=== PATIENT | female | born 1950 | race Caucasian/White ===

== ENCOUNTER 2023-10-02 12:58 | Emergency (ER) | payer MEDICARE ==
[2023-10-02] MEDS ORDERED: diltiaZEM INJ 5 MG/ML VIAL IVP STA ×2 (13:26→14:45)
--- NOTE | 2023-10-02 13:26 | ED Physician Documentation ---
PD HPI DYSPNEA - Stated complaint Stated Complaint: SOA - Chief complaint Chief Complaint: Cardiac - History obtained from History obtained from: Patient - History of Present Illness Timing - onset: How many weeks ago (3) Timing - onset during: Light activity Timing - duration: Weeks (3) Timing - details: Gradual onset, Still present Inciting event(s): Other (started about 3 wks ago) Improved by: Rest, Sitting up Worsened by: Exertion, Laying flat Associated symptoms: No: Fever, Cough, Hemoptysis, Wheezing, Chest pain / discomfort, Palpitations, Diaphoresis, Bilateral edema, Unilateral edema Similar symptoms before: Has not had sx before Recently seen: Not recently seen - Additional information Additional information: 72-year-old Katrina Solitario has been experiencing shortness of breath with exertion for the past 3 weeks. She is begin to experience shortness of breath when she is laying flat. She is coming to the emergency department today with 3 weeks of symptoms. She does not feel that she is otherwise ill. She does not have a cough. Review of Systems Constitutional: denies: Fever Ears: denies: Ear pain Nose: denies: Congestion Throat: denies: Sore throat Cardiac: denies: Chest pain / pressure, Palpitations Respiratory: reports: Dyspnea. denies: Cough, Wheezing GI: denies: Abdominal Pain, Nausea, Vomiting, Constipation, Diarrhea : denies: Dysuria, Frequency PD PAST MEDICAL HISTORY - Past Medical History Past Medical History: No Cardiovascular: None Respiratory: None Neuro: None Endocrine/Autoimmune: None GI: None CLOD PULLER: None : None HEENT: None Psych: None Musculoskeletal: Osteoporosis Derm: None - Past Surgical History Past Surgical History: Yes Ortho: Hip replacement /CLOD PULLER: Hysterectomy - Present Medications Home Medications: Ambulatory Orders Medication Instructions Recorded Confirmed Metoprolol Tartrate [Lopressor] 25 mg PO BID #40 tablet 10/02/23 Rivaroxaban [Xarelto] 20 mg PO DAILY PM #20 tablet 10/02/23 - Allergies Allergies/Adverse Reactions: Allergies Allergy/AdvReac Type Severity Reaction Status Date / Time No Known Drug Allergies Allergy Verified 10/02/23 13:04 - Social History Does the pt smoke?: Yes Smoking Status: Former smoker Does the pt drink ETOH?: No Does the pt have substance abuse?: No - Immunizations Immunizations are current?: No PD ED PE NORMAL - Vitals Vital signs reviewed: Yes (Tachycardic and hypertensive marked for both) - General General: Alert and oriented X 3, No acute distress, Well developed/nourished - HEENT HEENT: Atraumatic, PERRL, EOMI - Neck Neck: Supple, no meningeal sign, No bony TTP - Cardiac Cardiac: Other (Tach tachycardic to 140 irregularly irregular) - Respiratory Respiratory: No respiratory distress, Clear bilaterally - Abdomen Abdomen: Soft, Non tender - Back Back: No CVA TTP, No spinal TTP - Derm Derm: Normal color, No rash - Extremities Extremities: No deformity, No edema - Neuro Neuro: Alert and oriented X 3, web portal developer 2-12 intact, No motor deficit, No sensory deficit, Normal speech Eye Opening: Spontaneous Motor: Obeys Commands Verbal: Oriented GCS Score: 15 - Psych Psych: Normal mood, Normal affect Results - Vitals Vitals: Vital Signs - 24 hr 10/02/23 10/02/23 10/02/23 13:05 13:43 14:00 Temperature 36.5 C Heart Rate 160 H 84 77 Respiratory 16 16 19 Rate Blood Pressure 150/100 H 112/99 H 115/84 H O2 Saturation 98 92 95 10/02/23 10/02/23 10/02/23 14:15 14:30 14:50 Temperature Heart Rate 76 79 78 Respiratory 17 17 17 Rate Blood Pressure 115/73 109/87 H 114/77 O2 Saturation 94 93 95 Oxygen O2 Source Room air - EKG (time done) 1311 EKG releavant findings:: EKG personally interpreted by author of this note. Relevant findings are: Rate: Rate (enter#) (141) Intervals: Prolonged QT Compare to prior EKG: Old EKG unavailable Computer interpretation: Agree with computer - Labs Labs: Laboratory Tests 10/02/23 10/02/23 10/02/23 13:10 13:26 13:26 WBC 7.9 RBC 4.84 Hgb 14.3 Hct 44.3 MCV 91.5 MCH 29.5 MCHC 32.3 RDW 15.2 H Plt Count 188 MPV 11.9 H Neut # (Auto) 5.5 Lymph # (Auto) 1.5 [place] # (Auto) 0.7 Eos # (Auto) 0.1 Baso # (Auto) 0.0 Absolute Nucleated RBC 0.00 Nucleated RBC % 0.0 Sodium 138 Potassium 4.2 Chloride 104 Carbon Dioxide 27 Anion Gap 7.0 BUN 28 H Creatinine 0.9 Estimated GFR (MDRD) 62 L Glucose 167 H Calcium 9.5 Total Bilirubin 1.0 AST 23 ALT 26 Alkaline Phosphatase 63 Troponin I High Sens 13.6 B-Natriuretic Peptide 412 H Total Protein 7.4 Albumin 4.5 Globulin 2.9 Albumin/Globulin Ratio 1.6 Lipase 17 - Rads (name of study) chest Relevant Findings:: Prelim report reviewed (Impression: Minimally prominent interstitium could raise it represent edema or atypical infection. There is no drainable effusion. Mild cardiomegaly. Consider future imaging surveillance to assess for resolution.), EMP independent interpretation of test, See rad report PD Medical Decision Making - ED course Complexity details: reviewed results, re-evaluated patient, considered different ial, d/w patient Reviewed Lab Results: We reviewed a complete blood count showing a normal white blood cell count normal hemoglobin hematocrit and platelets chemistries showed normal electrolytes the BUN was elevated at 28 creatinine normal 0.9 glucose mildly elevated at 167 liver functions normal high-sensitivity troponin 13.6 normal and BNP mildly elevated at 412. I reviewed these laboratory results and correlation to the patient's clinical presentation. These results indicate the patient has some chest congestion related to left heart failure related to prolonged rapid rate. The patient did not develop elevated troponin after 3 weeks indicating that her heart has tolerated this. ED course: 72-year-old female with new onset atrial fibrillation with rapid ventricular response has symptoms of dyspnea on exertion and orthopnea. She has evidence of mild congestive failure on chest x-ray and BNP and this appears to be rate related and despite this rate related congestive failure she does not have elevation of her troponin. We were able to treat the patient on arrival with intravenous diltiazem she was given a 20 mg dose which reduced her heart rate into the 70s and 80s. She was stable. The patient has been in atrial fibrillation for 3 weeks and she is still in atrial fibrillation we will place her on a blood thinner and have her follow-up with her primary and cardiology. Place her on a dose of metoprolol for rate control. Departure - Departure Disposition: 01 Home, Self Care Clinical Impression: Atrial fibrillation with rapid ventricular response Condition: Stable Instructions: ED Afib Follow-Up: Byron Fairbanks MD [Provider Admit Priv/Credential] - [facility] - Card [Provider Group] Prescriptions: Metoprolol Tartrate [Lopressor] 25 mg PO BID #40 tablet Rivaroxaban [Xarelto] 20 mg PO DAILY PM #20 tablet Comments: Katrina, today it looks like you have developed atrial fibrillation and you had not rapid ventricular response which you did not tolerate. The we have given you some diltiazem in the emergency department to slow your heart rate down and I am recommending you use metoprolol twice per day to control your heart rate. In addition I have prescribed a blood thinner to prevent stroke. I have prescribed Xarelto. Tonight we have given you a dose of a blood thinner and a dose of metoprolol. You will not need to take either of these medicines again until tomorrow. The medications have been e-scribed to the [facility] in [place]. A follow up with cardiology and with a primary care doctor is indicated. We have given you the name of a physician in [place] to follow up with and the number for [facility] cardiology.
[2023-10-02 13:36] LABS: BASOPHILS % (AUTO) 0.5 %; EOSINOPHILS # (AUTO) 0.1 10^3/uL (0.0-0.7); EOSINOPHILS % (AUTO) 1.1 %; HCT - HEMATOCRIT 44.3 % (37.0-47.0); HGB - HEMOGLOBIN 14.3 g/dL (12.0-16.0); LYMPHOCYTES # (AUTO) 1.5 10^3/uL (1.5-3.5); LYMPHOCYTES % (AUTO) 19.5 %; MEAN CORPUSCULAR HEMOGLOBIN 29.5 pg (27.0-31.0); MEAN CORPUSCULAR HGB CONC 32.3 g/dL (32.0-36.0); MEAN CORPUSCULAR VOLUME 91.5 fL (81.0-99.0); MEAN PLATELET VOLUME 11.9 fL (7.9-10.8); MONOCYTES # (AUTO) 0.7 10^3/uL (0.0-1.0); MONOCYTES % (AUTO) 8.8 %; NEUTROPHILS # (AUTO) 5.5 10^3/uL (1.5-6.6); NEUTROPHILS % (AUTO) 69.8 %; PLT - PLATELET COUNT 188 10^3/uL (130-450); RED BLOOD COUNT 4.84 10^6/uL (4.20-5.40); RED CELL DISTRIBUTION WIDTH 15.2 % (12.0-15.0); WHITE BLOOD COUNT 7.9 x10^3/uL (4.8-10.8)
[2023-10-02 13:51] LABS: ALBUMIN 4.5 g/dL (3.2-5.5); ALBUMIN/GLOBULIN RATIO 1.6 (1.0-2.2); CALCIUM 9.5 mg/dL (8.5-10.3); CREATININE 0.9 mg/dL (0.6-1.3); POTASSIUM 4.2 mmol/L (3.5-4.5); TOTAL PROTEIN 7.4 g/dL (6.4-8.9)
[2023-10-02 13:56] LABS: TROPONIN I HIGH SENSITIVITY 13.6 ng/L (2.3-14.8)
--- NOTE | 2023-10-02 13:56 | XRAY Report ---
PROCEDURE: Chest 1V INDICATIONS: Chest pain TECHNIQUE: One view of the chest was acquired. COMPARISON: None. FINDINGS: Surgical changes and devices: None. Lungs and pleura: Mild prominence of the interstitium. No dense consolidation or drainable pleural e ffusion. Mediastinum: Borderline heart size Bones and chest wall: Degenerative changes IMPRESSION: Mildly prominent interstitium could represent edema or atypical infection. There is no drainable effu gail. Mild cardiomegaly. Consider future imaging surveillance to assess for resolution. Reviewed by: Gonzalez Butcher MD on 10/02/2023 1:55 PM PST Approved by: Gonzalez Butcher MD on 10/02/2023 1:55 PM PST Station ID: [id number]
[2023-10-02 15:28] VITALS: BP 120/76; O2SAT 97
[2023-10-02] MEDS ORDERED: METOPROLOL TARTRATE 50 MG TABLET PO STA (15:31)
[2023-10-02] MEDS ORDERED: APIXABAN 5 MG TABLET PO STA (15:34)
== END 2023-10-02 15:49 | disposition home or self-care (01) ==
LOC: ED 12:58
DX: I48.91 Unspecified atrial fibrillation (principal); Z79.01 Long term (current) use of anticoagulants; Z87.891 Personal history of nicotine dependence
CPT/HCPCS: 36415; 71045; 80053; 83690; 83880; 84484; 85025; 93005; 96374; 99283; 99284; A9270

== ENCOUNTER 2023-11-08 13:08 | Outpatient (CLI) | payer MEDICARE | END 2023-11-08 13:09 | disposition critical access hospital (66) | LOC: EMS 13:08 | DX: R06.09 Other forms of dyspnea (principal); I48.91 Unspecified atrial fibrillation | CPT/HCPCS: A0425; A0429 ==

== ENCOUNTER 2023-11-08 13:20 | Emergency (ER) | payer MEDICARE ==
--- NOTE | 2023-11-08 13:40 | ED Physician Documentation ---
History of Present Illness - Stated complaint Stated Complaint: AFIB - Chief complaint Chief Complaint: Cardiac - History obtained from History obtained from: Patient, EMS - History of Present Illness Timing: How many weeks ago (5) Pain level max: 0 Pain level now: 0 - Additonal information Additional information: 72-year-old female was diagnosed about 5 weeks ago with atrial fibrillation with rapid ventricular response. She was started on metoprolol and Xarelto. She did not fill the Xarelto secondary to cost. She states she has been on the metoprolol and has an appoint with a new primary care provider next week. She has been taking baby aspirin twice daily. No chest pain. She states that she still feels like she gets out of breath when she walks. She states that her heart rate at home has been between 120 and 150. No fevers. No cough. No congestion. No nausea or vomiting. No diarrhea. Review of Systems Constitutional: denies: Fever, Chills Respiratory: denies: Cough GI: denies: Nausea, Vomiting, Diarrhea Skin: denies: Rash Musculoskeletal: denies: Neck pain, Back pain Neurologic: denies: Headache PD PAST MEDICAL HISTORY - Past Medical History Cardiovascular: None Respiratory: None Neuro: None Endocrine/Autoimmune: None GI: None BIOMEDICAL SERVICE ENGINEER: None : None HEENT: None Psych: None Musculoskeletal: Osteoporosis Derm: None - Past Surgical History Past Surgical History: Yes Ortho: Hip replacement /BIOMEDICAL SERVICE ENGINEER: Hysterectomy - Present Medications Home Medications: Ambulatory Orders Medication Instructions Recorded Confirmed Metoprolol Tartrate [Lopressor] 25 mg PO BID #40 tablet 10/02/23 11/08/23 Furosemide [Lasix] 20 mg PO DAILY #14 tablet 11/08/23 diltiaZEM CD [Cardizem Cd] 120 mg PO DAILY #30 cap 11/08/23 - Allergies Allergies/Adverse Reactions: Allergies Allergy/AdvReac Type Severity Reaction Status Date / Time No Known Drug Allergies Allergy Verified 10/02/23 13:04 - Social History Does the pt smoke?: Yes Smoking Status: Current every day smoker Does the pt drink ETOH?: No Does the pt have substance abuse?: No - Immunizations Immunizations are current?: No PD ED PE NORMAL - Vitals Vital signs reviewed: Yes - General General: Alert and oriented X 3, No acute distress - HEENT HEENT: PERRL, Moist mucous membranes - Neck Neck: Supple, no meningeal sign - Cardiac Cardiac: Other (Irregular, tachycardic) - Respiratory Respiratory: No respiratory distress, Clear bilaterally - Abdomen Abdomen: Soft, Non tender, Non distended - Derm Derm: Warm and dry - Extremities Extremities: No calf tenderness / cord, Other (1+ bilateral lower extremity edema) - Neuro Neuro: Alert and oriented X 3 - Psych Psych: Normal mood, Normal affect Results - Vitals Vitals: Vital Signs - 24 hr 11/08/23 11/08/23 11/08/23 13:28 13:30 14:00 Temperature 36.6 C Heart Rate 145 H 139 H 93 Respiratory 26 H 22 Rate Blood Pressure 120/91 H 109/87 H 93/73 O2 Saturation 99 97 93 11/08/23 11/08/23 11/08/23 14:20 15:00 15:30 Temperature Heart Rate 88 88 86 Respiratory 22 18 18 Rate Blood Pressure 92/75 114/90 H 117/86 H O2 Saturation 95 95 95 11/08/23 11/08/23 16:00 16:32 Temperature Heart Rate 96 99 Respiratory 18 22 Rate Blood Pressure 101/74 101/74 O2 Saturation 100 98 Oxygen O2 Source Room air - EKG (time done) 1329 EKG releavant findings:: EKG personally interpreted by author of this note. Relevant findings are: Rate: Rate (enter#) (127) Rhythm: Atrial fibrillation (RVR) [place]: Normal QRS: Normal Ischemia: Non specific changes - Labs Labs: Laboratory Tests 11/08/23 11/08/23 11/08/23 13:45 13:45 13:45 WBC 12.5 H RBC 4.71 Hgb 14.1 Hct 43.9 MCV 93.2 MCH 29.9 MCHC 32.1 RDW 15.5 H Plt Count 238 MPV 12.0 H Neut # (Auto) 9.5 H Lymph # (Auto) 1.7 [place] # (Auto) 1.1 H Eos # (Auto) 0.0 Baso # (Auto) 0.1 Absolute Nucleated RBC 0.00 Nucleated RBC % 0.0 Sodium 137 Potassium 4.8 H Chloride 104 Carbon Dioxide 26 Anion Gap 7.0 BUN 51 H Creatinine 1.2 Estimated GFR (MDRD) 44 L Glucose 239 H Calcium 9.2 Total Bilirubin 1.4 H AST 37 ALT 39 Alkaline Phosphatase 62 Troponin I High Sens 18.5 H* B-Natriuretic Peptide 760 H Total Protein 6.0 L Albumin 3.8 Globulin 2.2 Albumin/Globulin Ratio 1.7 Lipase 23 - Rads (name of study) cxr Relevant Findings:: Final report received, See rad report PD Medical Decision Making - ED course Complexity details: reviewed results, re-evaluated patient, considered differential, d/w patient ED course: 72-year-old female presents with atrial fibrillation with rapid ventricular response. She was diagnosed about a month ago. She has not taken her anticoagulant medication secondary to cost and does not want to be started on 1. She states she just wants to take aspirin. Understands the stroke risk. She does appear to have an elevated BNP compared with prior, cardiomegaly and pulmonary edema that is mild. No hypoxia or respiratory distress. Attempted to obtain an echocardiogram, but the pv installer tech is not available until tomorrow. Her rate is well-controlled with diltiazem and she seems to respond much better to diltiazem than metoprolol, therefore we will change this at home. Will also start her on Lasix. We will have her follow-up closely with her PCP this week as scheduled. Patient also has a cardiology appointment scheduled. Patient is rate controlled. Patient otherwise asymptomatic here. No other significant lab abnormalities. Patient counseled regarding signs and symptoms for which I believe and urgent re-evaluation would be necessary. Patient with good understanding of and agreement to plan and is comfortable going home at this time This document was made in part using voice recognition software. While efforts are made to proofread this document, sound alike and grammatical errors may occur. Departure - Departure Disposition: 01 Home, Self Care Clinical Impression: Atrial fibrillation with rapid ventricular response Congestive heart failure Qualifiers: Heart failure type: unspecified Heart failure chronicity: unspecified Qualified Code(s): I50.9 - Heart failure, unspecified Condition: Good Instructions: ED Afib, ED CHF General Follow-Up: SAM DIAZ PA [Physician No Access] - Within 1 week Prescriptions: diltiaZEM CD [Cardizem Cd] 120 mg PO DAILY #30 cap Furosemide [Lasix] 20 mg PO DAILY #14 tablet Comments: Your prescriptions were sent to [facility] in [place]. We will have you stop th e metoprolol and switch you to Cardizem as you seem to respond better to that. You also appear to likely have some congestive heart failure and mild fluid building up in your lungs. The Lasix will usually help with this. It is importantly your doctor order a cardiac echocardiogram for you. I did try to order one today, but the pv installer tech is not here on Mondays. Please return if you worsen. Forms: PCP List Discharge Date/Time: 11/08/23 16:25
[2023-11-08] MEDS: diltiaZEM INJ 5 MG/ML VIAL IVP STA (13:46)
[2023-11-08 13:49] LABS: BASOPHILS # (AUTO) 0.1 10^3/uL (0.0-0.1); BASOPHILS % (AUTO) 0.5 %; EOSINOPHILS % (AUTO) 0.2 %; HCT - HEMATOCRIT 43.9 % (37.0-47.0); HGB - HEMOGLOBIN 14.1 g/dL (12.0-16.0); LYMPHOCYTES # (AUTO) 1.7 10^3/uL (1.5-3.5); LYMPHOCYTES % (AUTO) 13.3 %; MEAN CORPUSCULAR HEMOGLOBIN 29.9 pg (27.0-31.0); MEAN CORPUSCULAR HGB CONC 32.1 g/dL (32.0-36.0); MEAN CORPUSCULAR VOLUME 93.2 fL (81.0-99.0); MONOCYTES # (AUTO) 1.1 10^3/uL (0.0-1.0); MONOCYTES % (AUTO) 9.1 %; NEUTROPHILS # (AUTO) 9.5 10^3/uL (1.5-6.6); NEUTROPHILS % (AUTO) 76.6 %; PLT - PLATELET COUNT 238 10^3/uL (130-450); RED BLOOD COUNT 4.71 10^6/uL (4.20-5.40); RED CELL DISTRIBUTION WIDTH 15.5 % (12.0-15.0); WHITE BLOOD COUNT 12.5 x10^3/uL (4.8-10.8)
[2023-11-08 14:20] LABS: ALBUMIN 3.8 g/dL (3.2-5.5); ALBUMIN/GLOBULIN RATIO 1.7 (1.0-2.2); BILIRUBIN,TOTAL 1.4 mg/dL (0.2-1.0); CALCIUM 9.2 mg/dL (8.5-10.3); CREATININE 1.2 mg/dL (0.6-1.3); POTASSIUM 4.8 mmol/L (3.5-4.5); TROPONIN I HIGH SENSITIVITY 18.5 ng/L (2.3-14.8)
[2023-11-08] MEDS: FUROSEMIDE 20 MG/2 ML VIAL IVP STA (14:41)
--- NOTE | 2023-11-08 15:35 | XRAY Report ---
PROCEDURE: Chest 1V INDICATIONS: palpitations TECHNIQUE: One view of the chest was acquired. COMPARISON: Chest x-ray 10/02/2023. FINDINGS: Surgical changes and devices: None. Lungs and pleura: No pleural effusions or pneumothorax. Lungs are clear. Mediastinum: Mediastinal contours appear normal. Heart size is enlarged. Bones and chest wall: No suspicious bony lesions. Overlying soft tissues appear unremarkable. IMPRESSION: Cardiomegaly with prominent interstitial markings, may represent fluid overload. Reviewed by: Thomas Sprague MD on 11/08/2023 3:34 PM PST Approved by: Thomas Sprague MD on 11/08/2023 3:34 PM PST Station ID: [id number]
[2023-11-08] MEDS: diltiaZEM INJ 125 MG in DEXTROSE 5% 100 ML IV STA (16:14)
[2023-11-08 16:35] VITALS: BP 101/74
[2023-11-08 16:45] VITALS: O2SAT 98
== END 2023-11-08 16:25 | disposition home or self-care (01) ==
LOC: ED 13:20
DX: R06.09 Other forms of dyspnea (principal); I48.91 Unspecified atrial fibrillation; I50.9 Heart failure, unspecified; T45.516A Underdosing of anticoagulants, initial encounter; Z91.138 Patient's unintentional underdosing of medication regimen for other reason; F17.200 Nicotine dependence, unspecified, uncomplicated
CPT/HCPCS: 36415; 80053; 83690; 83880; 84484; 85025; 93005; 96374; 96375; 99283

== ENCOUNTER 2023-12-03 10:43 | Inpatient (IN) | payer MEDICARE ==
--- NOTE | 2023-12-03 11:14 | ED Physician Documentation ---
PD HPI DYSPNEA - Stated complaint Stated Complaint: HIGH HR,FEET SWELLING - Chief complaint Chief Complaint: Cardiac - History obtained from History obtained from: Patient - History of Present Illness Timing - onset: How many months ago (has noted some general edema and dyspnea for few months, with ED visits Sep and Nov for it, with D atrial fib/CHF. Rx with Warfarin, Lasix, Diltiazem. She states has not noted improvement with these. Still more edema generally. Does not have feeling of rapid heart rate currently.) Timing - details: Gradual onset, Waxing and waning (had a plateau degree of edema for few weeks, and then worse the past 1-2 weeks. Increased redness and swelling of both legs now.) Inciting event(s): No: URI, Immobilization/travel Improved by: Rest, Sitting up Worsened by: Exertion, Laying flat Associated symptoms: No: Fever, Cough, Wheezing Recently seen: Clinic (started on metoprolol but not improved. changed to diltiazem on ER visit month ago. Some improved for 1-2 weeks, then increased edema again though. much worse the past week.), Emergency Dept Review of Systems Constitutional: denies: Fever, Chills Nose: denies: Rhinorrhea / runny nose Throat: denies: Sore throat Cardiac: reports: Pedal edema. denies: Palpitations Respiratory: reports: Dyspnea, Wheezing. denies: Cough PD PAST MEDICAL HISTORY - Past Medical History Cardiovascular: Congestive heart failure, Atrial fibrillation Respiratory: None Neuro: None Endocrine/Autoimmune: None GI: None DIRECTOR DESIGN: None : None HEENT: None Psych: None Musculoskeletal: Osteoporosis Derm: None - Past Surgical History Past Surgical History: Yes Ortho: Hip replacement /DIRECTOR DESIGN: Hysterectomy - Present Medications Home Medications: Ambulatory Orders Medication Instructions Recorded Confirmed diltiaZEM CD [Cardizem Cd] 120 mg PO DAILY #30 cap 11/08/23 12/03/23 Furosemide [Lasix] 40 mg PO DAILY 12/03/23 12/03/23 - Allergies Allergies/Adverse Reactions: Allergies Allergy/AdvReac Type Severity Reaction Status Date / Time banana Allergy Mild Rash Verified 12/03/23 11:09 gluten Allergy Rash Verified 12/03/23 11:09 pineapple Allergy Rash Verified 12/03/23 11:09 - Social History Does the pt smoke?: No Smoking Status: Former smoker Does the pt drink ETOH?: No Does the pt have substance abuse?: No - Immunizations Immunizations are current?: No PD ED PE NORMAL - Vitals Vital signs reviewed: Yes - General General: Alert and oriented X 3, Well developed/nourished - HEENT HEENT: Pharynx benign - Neck Neck: Supple, no meningeal sign, No adenopathy - Cardiac Cardiac: No murmur. No: RRR - Respiratory Respiratory: No respiratory distress - Abdomen Abdomen: Soft, Non tender, Non distended - Derm Derm: Normal color, Warm and dry, Other (redness with some dry skin patches on upper chest to mid sternal area. Some red rash on cheeks and forehead.) - Extremities Extremities: Other (2-3+ edema in both lower legs, with uniform symettric redness with tenderness lower anterior shins. Dressings in place. ) - Neuro Neuro: Alert and oriented X 3, No motor deficit, No sensory deficit, Normal speech Results - Vitals Vitals: Vital Signs - 24 hr 12/03/23 12/03/23 12/03/23 10:49 11:55 13:00 Temperature 35.9 C L Heart Rate 167 H 146 H 108 H Respiratory 18 16 18 Rate Blood Pressure 152/113 H 116/87 H 104/69 O2 Saturation 95 95 97 12/03/23 12/03/23 14:36 15:00 Temperature Heart Rate 110 H 135 H Respiratory 16 16 Rate Blood Pressure 128/97 H 125/85 H O2 Saturation 95 96 Oxygen O2 Source Room air - EKG (time done) 10:59 EKG releavant findings:: EKG personally interpreted by author of this note. Relevant findings are: Rate: Rate (enter#) (161) Rhythm: Atrial fibrillation Ischemia: ST depression. No: ST elevation c/w ischemia Compare to prior EKG: Unchanged from prior EKG - Labs Labs: Laboratory Tests 12/03/23 12/03/23 12/03/23 11:30 11:30 11:30 WBC 9.7 RBC 4.68 Hgb 13.5 Hct 40.9 MCV 87.4 MCH 28.8 MCHC 33.0 RDW 14.6 Plt Count 330 MPV 10.9 H Neut # (Auto) 7.5 H Lymph # (Auto) 1.1 L Laurens # (Auto) 0.9 Eos # (Auto) 0.1 Baso # (Auto) 0.1 Absolute Nucleated RBC 0.00 Nucleated RBC % 0.0 PT INR Sodium 138 Potassium 3.4 L Chloride 98 L Carbon Dioxide 31 Anion Gap 9.0 BUN 26 H Creatinine 1.0 Estimated GFR (MDRD) 54 L Glucose 167 H Calcium 9.5 Phosphorus Magnesium 1.8 Total Bilirubin 1.2 H AST 31 ALT 25 Alkaline Phosphatase 78 Troponin I High Sens 14.7 B-Natriuretic Peptide Total Protein 6.6 Albumin 3.9 Globulin 2.7 Albumin/Globulin Ratio 1.4 Lipase 18 TSH 12/03/23 12/03/23 12/03/23 11:30 11:38 13:41 WBC RBC Hgb Hct MCV MCH MCHC RDW Plt Count MPV Neut # (Auto) Lymph # (Auto) Laurens # (Auto) Eos # (Auto) Baso # (Auto) Absolute Nucleated RBC Nucleated RBC % PT 14.0 H INR 1.3 H Sodium Potassium Chloride Carbon Dioxide Anion Gap BUN Creatinine Estimated GFR (MDRD) Glucose Calcium Phosphorus 3.5 Magnesium 1.7 Total Bilirubin AST ALT Alkaline Phosphatase Troponin I High Sens B-Natriuretic Peptide 349 H Total Protein Albumin Globulin Albumin/Globulin Ratio Lipase TSH 3.73 - Rads (name of study) chest xry Relevant Findings:: Prelim report reviewed, EMP independent interpretation of test (vascular congestion, CHF. No infiltrates) PD Medical Decision Making - ED course Complexity details: reviewed results (The chest x-ray does appear to have congestive heart failure findings. No signs of pneumonia. BNP is somewhat elevated at 349. No prior levels. Troponin is negative. Chemistry panel shows decreased potassium and magnesium and she was given supplements.), re-evaluated patient (The patient does have adequate oxygenation on room air. However heart rate still is running more over 100 after doses of diltiazem IV. She was given Bumex IV with minimal urine output so far. We can repeat the dosing.), considered differential (The patient has ongoing atrial fibrillation. She does not feel her heart rate going fast so hard to tell rate control per se. She has been having progressive edema in the legs and dyspnea. This had started prior to switching to oral diltiazem though could be enhanced from it. Previous metoprolol), d/w patient ED course: The patient was on metoprolol but did not like it in the sense of having fatigue. Unclear whether was the medicine itself. She was switched however to a diltiazem and seem to be doing a little better with that as well as furosemide outpatient. However she continued to have increasing edema over the last week or 2 in the legs and has noticed orthopnea and dyspnea on exertion. No chest pain per se. Her leg swelling is such that she is now having Harlan redness on the anterior aspects of both legs from the edema. She has been limited in basic house activities due to the dyspnea. Unclear what her heart rate has been at home as she does not measure it and is not able to feel it going fast. This point I believe she is a has need for better rate control and to assess that more carefully. Also better diuresis. Consideration would be the edema in the legs related to the calcium emory and whether she would do better switching back to a beta-emory. Defer to the hospitalist on this. I did try a different diuretic. She has redness and itchy rash on her chest and face over the last week. This could be an allergic reaction. Her new medicines are the diltiazem and furosemide. I be more inclined to think furosemide as a source and therefore used bumetanide as a diuretic here. She has had minimal urge for urine output as yet. I will repeat the dose. She is not hypoxic but does have poor rate control atrial fibrillation along with progressive edema despite outpatient diuretics and progressive dyspnea. I feel she would be better treated in the hospital with IV medications and to optimize dosing for rate control. I talked with the hospitalist who was in agreement and will come to the ER to see the patient. Departure - Departure Disposition: ED Place in Observation Clinical Impression: Atrial fibrillation with rapid ventricular response, Congestive heart failure, Dyspnea, Edema, Allergic reaction Condition: Stable Record reviewed to determine appropriate education?: Yes Discharge Date/Time: 12/03/23 16:51
[2023-12-03 11:42] LABS: BASOPHILS # (AUTO) 0.1 10^3/uL (0.0-0.1); BASOPHILS % (AUTO) 0.5 %; EOSINOPHILS # (AUTO) 0.1 10^3/uL (0.0-0.7); EOSINOPHILS % (AUTO) 1.1 %; HCT - HEMATOCRIT 40.9 % (37.0-47.0); HGB - HEMOGLOBIN 13.5 g/dL (12.0-16.0); LYMPHOCYTES # (AUTO) 1.1 10^3/uL (1.5-3.5); LYMPHOCYTES % (AUTO) 11.1 %; MEAN CORPUSCULAR HEMOGLOBIN 28.8 pg (27.0-31.0); MEAN CORPUSCULAR VOLUME 87.4 fL (81.0-99.0); MEAN PLATELET VOLUME 10.9 fL (7.9-10.8); MONOCYTES # (AUTO) 0.9 10^3/uL (0.0-1.0); MONOCYTES % (AUTO) 8.8 %; NEUTROPHILS # (AUTO) 7.5 10^3/uL (1.5-6.6); NEUTROPHILS % (AUTO) 77.8 %; PLT - PLATELET COUNT 330 10^3/uL (130-450); RED BLOOD COUNT 4.68 10^6/uL (4.20-5.40); RED CELL DISTRIBUTION WIDTH 14.6 % (12.0-15.0); WHITE BLOOD COUNT 9.7 x10^3/uL (4.8-10.8)
--- NOTE | 2023-12-03 11:50 | XRAY Report ---
PROCEDURE: Chest 1V INDICATIONS: Chest pain TECHNIQUE: One view of the chest was acquired. COMPARISON: 11/08/2023. FINDINGS: Surgical changes and devices: None. Lungs and pleura: Pulmonary edema, bilateral pleural effusions, bibasilar atelectasis. Mediastinum: Mediastinal contours appear normal. Cardiomegaly. Bones and chest wall: No suspicious bony lesions. Overlying soft tissues appear unremarkable. IMPRESSION: Congestive heart failure exacerbation. Reviewed by: Trent Rodgers MD on 12/03/2023 11:48 AM PST Approved by: Trent Rodgers MD on 12/03/2023 11:48 AM PST Station ID: [id number]
[2023-12-03 11:55] LABS: ALBUMIN 3.9 g/dL (3.2-5.5); ALBUMIN/GLOBULIN RATIO 1.4 (1.0-2.2); BILIRUBIN,TOTAL 1.2 mg/dL (0.2-1.0); CALCIUM 9.5 mg/dL (8.5-10.3); POTASSIUM 3.4 mmol/L (3.5-4.5); TOTAL PROTEIN 6.6 g/dL (6.4-8.9)
[2023-12-03 12:03] LABS: TROPONIN I HIGH SENSITIVITY 14.7 ng/L (2.3-14.8)
[2023-12-03] MEDS: POTASSIUM BICARB 25 MEQ TABLET PO STA (12:30)
[2023-12-03] MEDS: diltiaZEM INJ 5 MG/ML VIAL IVP STA ×2 (12:32→13:41)
[2023-12-03] MEDS: BUMETANIDE 1 MG/4 ML VIAL IVP STA ×2 (12:34→14:29)
[2023-12-03] MEDS: MAGNESIUM SULFATE 2 GRAM 2 GM/50 ML BAG IV ONE (12:41)
[2023-12-03 13:52] LABS: INR 1.3 (0.8-1.2)
--- NOTE | 2023-12-03 15:23 | HISTORY & PHYSICAL EXAMINATION ---
Chief Complaint - Chief Complaint Chief Complaint: edema and rash History of Present Illness - Admitted From Admitted From:: home - ED - History Obtained From Records Reviewed: records in [facility] - yes History obtained from: patient and records Exam Limitations: none - History of Present Illness HPI Comment/Other: The patient is a 73-year-old female with h/o episodes of afib with RVR on PO diltiazem who presented to the ED for edema, worst in BLE. She was seen in the ED 10/02 for THOMPSON x 3 wks and noted to be in afib RVR. She was given metoprolol with improvement and sent home with PO metoprolol and Xarelto (which she did not fill due to cost). She states she was concerned the Xarelto would "make her vessels would pop" and instead decided to take ASA 81 mg BID. She returned to ED 11/08 for THOMPSON and was again in afib RVR. She responded to diltiazem and was sent home with PO diltiazem. She has been taking PO Lasix since then as well. She states the Lasix was not working and she continued to notice progressive weight gain, reports her usual weight is ~200-225 lb (today is ~268 lb). She admits she has been "in denial about a heart problem" and delayed coming back to the ED. She stopped her Lasix 3d ago as she developed an itchy, red rash throughout her body, which she attributed to the Lasix. She presented today due to worsening edema. She states her THOMPSON is about as it has been since September. She denies chest pain, wheezing, abdominal pain, nausea, vomiting, diarrhea, polyuria. She has had fatigue and weight gain. She has not had an echo, was due to get one as an outpatient but this has not yet been scheduled. In the ED she received Bumex 4mg IV total, and diltiazem IV 25 mg total. Also received K and Mg. At time of exam her HR is noted to be 110-140s with stable BP and normal SpO2. 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, Other ([facility] for "cancer") : reports: None HEENT: reports: None Psych: reports: None Musculoskeletal: reports: Osteoporosis Derm: reports: None MRSA Hx?: No - Past Surgical History Ortho: reports: Hip replacement /ENTRY LEVEL PROJECT ENGINEER: reports: Hysterectomy - Family & Social History Family History Comment/Other: father with mitral valve dysfunction Living arrangement: At home Living Situation: Alone Social History Notes: Has a walker at home but often does not need to use it - Substance History Use: Uses substance without health or social issues: Tobacco (former tobacco use) - POLST Patient has POLST: No POLST Status: Full Code Meds/Allgy - Home Medications Home Medications: Ambulatory Orders Medication Instructions Recorded Confirmed Furosemide [Lasix] 20 mg PO DAILY #14 tablet 11/08/23 12/03/23 diltiaZEM CD [Cardizem Cd] 120 mg PO DAILY #30 cap 11/08/23 12/03/23 - Allergies Allergies/Adverse Reactions: Allergies Allergy/AdvReac Type Severity Reaction Status Date / Time banana Allergy Mild Rash Verified 12/03/23 11:09 gluten Allergy Rash Verified 12/03/23 11:09 pineapple Allergy Rash Verified 12/03/23 11:09 Review of Systems - Constitutional Constitutional: reports: Fatigue, Weight gain - Cardiovascular Cariovascular: reports: Edema, Exertional dyspnea, Decr. exercise tolerance - Respiratory Respiratory: reports: SOB with exertion - Integumentary Integumentary: reports: Rash - All Other Systems All Other Systems: reports: Reviewed and negative Prior Level of Functionality: Independent Exam - Vital Signs Reviewed Vital Signs: Yes Vital Signs: Vital Signs x48h Temp Pulse Resp BP Pulse Ox 12/03/23 14:36 110 H 16 128/97 H 95 12/03/23 13:00 108 H 18 104/69 97 12/03/23 11:55 146 H 16 116/87 H 95 12/03/23 10:49 35.9 C L 167 H 18 152/113 H 95 - Physical Exam General Appearance: positive: No acute distress, Alert Eyes Bilateral: positive: Normal inspection, No scleral icterus Respiratory: positive: Chest non-tender, No respiratory distress (Bibasilar crackles, more diminished on right side, no wheezing) Cardiovascular: positive: Irregularly irregular, Tachycardia Peripheral Pulses: positive: 2+ Abdomen: positive: Non-tender, Nml bowel sounds, No distention Skin: positive: Skin rash (erythematous confluent rash noted on face, chest, arms, abdomen, and both legs with pruritus. open lesions on dorsum of both feet with mild serosanginous drainage.) Extremities: positive: Non-tender, Pedal edema (3-4 + pitting BLE edema) Neurologic/Psychiatric: positive: Oriented x3, Motor nml, Sensation nml, Mood/affect nml Conclusion/Plan - Problem List (1) Atrial fibrillation with rapid ventricular response Conclusion/Plan: HR 110-160s. Improvement with 2 IVP doses of diltiazem in ED, now HR back up. EKG afib with RVR without ischemic channges. Taking diltiazem at home. This is her 3rd ED visit for afib with RVR. States did beta blockers were not effective for rate control. BP stable. [id number] is 2 (female, age). Plan: Check TSH, lytes Diltiazem gtt, goal HR <110 Echo Suspect has underlying CHF, would benefit from anticoagulation. Unable to afford Xarelto. Start Lovenox for now, then plan to start warfarin (due to cost of DOAC) (2) Acute on chronic diastolic CHF (congestive heart failure) Conclusion/Plan: Suspect has had CHF since at least September when she initially c/o THOMPSON. Reports following low-salt diet, but the Lasix wasn't working. S/p 2 doses of Bumex in ED (total of 4 mg). Reports baseline weight is ~225 lb. Plan: Echo Continue diuresis, NO LASIX (suspect drug reaction of rash) Monitor lytes while on diuresis I&O, daily weights Low salt <3-4g diet (3) Hypokalemia Conclusion/Plan: Replaced in ED. Plan: Monitor K and Mg while on diuresis Replace as needed to keep K~4, Mg~2 (4) Rash Conclusion/Plan: C/o significant pruritus. Suspect this rash is due to use of Lasix. No wheezing or other signs of worsening drug reaction. Has been off Lasix x 3d. Plan: NO LASIX IN FUTURE Consider systemic and/or topical antihistamines (5) Obesity Conclusion/Plan: BMI 43. Has had recent weight gain from CHF. Plan: outpatient follow-up to [facility] for BAKARI Qualifiers: Obesity type: unspecified obesity type Obesity classification: adult class 3 (BMI >= 40) Body mass index: BMI 40.0-44.9 Qualified Code(s): E66.01 - Morbid (severe) obesity due to excess calories; Z68.41 - Body mass index [BMI] 40.0-44.9, adult - Lab Results Lab results reviewed: Yes Brendan Bones: 12/03/23 11:30 12/03/23 11:30 - Diagnostic Imaging Results Diagnostic Imaging Results: positive: Final report reviewed, Read independently Diagnostic Imaging Results Comments: CXR with pleural effusions R>L, cardiomegaly, findings consistent with pulmonary edema. - EKG Results EKG Interpreted Independently: Yes EKG Comparison: Unchanged from prior EKG EKG Findings: Afib with RVR Core Measures - Anticipated LOS I expect patient to be DC'd or transferred within 96 hours.: Yes - DVT/VTE - Prophylaxis VTE/DVT Device ordered at admit?: Yes VTE/DVT Prophylaxis med ordered at admit?: Yes
[2023-12-03 16:05] LABS: MAGNESIUM 1.7 mg/dL (1.7-2.3); PHOSPHORUS 3.5 mg/dL (2.5-5.0)
[2023-12-03 16:21] LABS: THYROID STIMULATING HORMONE 3.73 uIU/mL (0.34-5.60)
[2023-12-03] MEDS: diltiaZEM INJ 125 MG in DEXTROSE 5% 100 ML IV SCH (16:51)
[2023-12-03] MEDS: ENOXAPARIN 60 MG/0.6 ML SYRINGE SUBQ SCH (16:57)
[2023-12-03] MEDS: SODIUM CHLORIDE FLUSH 0.9% 10 ML SYRINGE IVP SCH (16:58)
--- NOTE | 2023-12-03 17:34 | PHARMACY PROGRESS NOTE ---
- Best Possible Medication History Admit Date and Time: 12/03/23 1526 Processed by: Nursing Medications reviewed in ED?: Yes Medication History completed: Yes Patient Interview: Completed Secondary Source(s): Pharmacy records, Insurance records As the person ultimately responsible for medication therapy, providers are able to order a medication from an existing home medication list in [facility] via the "Reconcile Routine" prior to Confirmation of that medication by academic support coordinator. Such practice is discouraged except when the physician, in their clinical judgment, deems that a medical need exists for a medication without regard to previous use.
[2023-12-03] MEDS: INSULIN LISPRO 300 UNIT/3 ML PEN SUBQ SCH (21:38)
[2023-12-03] MEDS: NYSTATIN POWDER 15 GM TOP SCH (21:49)
[2023-12-04 06:02] LABS: CALCIUM 8.7 mg/dL (8.5-10.3); CREATININE 0.9 mg/dL (0.6-1.3); MAGNESIUM 1.8 mg/dL (1.7-2.3); POTASSIUM 3.3 mmol/L (3.5-4.5)
[2023-12-04] MEDS: MAGNESIUM OXIDE 400 MG TABLET PO ONE (07:10)
[2023-12-04] MEDS ORDERED: POTASSIUM CHLORIDE 20 MEQ/15 ML UDC PO SCH (09:00)
[2023-12-04] MEDS: POTASSIUM CHLORIDE 20 MEQ TABLET PO SCH (09:20)
[2023-12-04] MEDS ORDERED: METOPROLOL 5 MG/5 ML VIAL IVP SCH (10:00)
[2023-12-04] MEDS: METOPROLOL 5 MG/5 ML VIAL IVP ONE (10:17)
[2023-12-04] MEDS: SPIRONOLACTONE 25 MG TABLET PO SCH (11:58)
[2023-12-04] MEDS: BUMETANIDE 1 MG TABLET PO SCH (11:58)
[2023-12-04] MEDS: METOPROLOL TARTRATE 25 MG TABLET PO SCH ×2 (11:58→18:20)
--- NOTE | 2023-12-04 13:13 | PROVIDER PROGRESS NOTE ---
Subjective - Prog Note Date Prog Note Date: 12/04/23 Prog Note Time: 13:11 - Subjective Pt reports feeling: Improved (Slightly improved, does not feel she is urinating that much. Her rash is not as pruritic. Spent time explaining to her about her systolic HF, rojelio a picture, explained rationale for medications. Has had orthopnea and THOMPSON since July, upon further questioning. On O2, did desat when I turned it off) Current Medications - Current Medications Current Medications: Active Medications Generic Name Dose Route Start Last Admin Trade Name Freq PRN Reason Stop Dose Admin Bumetanide 1 mg 12/04/23 10:03 12/04/23 11:58 Bumetanide 1 Mg Tablet PO 1 mg BIDDIURETIC ARPAN Administration Enoxaparin Sodium 60 mg 12/03/23 15:36 12/04/23 09:20 Enoxaparin 60 Mg/0.6 Ml Syringe SUBQ 60 mg BID ARPAN Administration Diltiazem HCl 125 mg/ Dextrose 125 mls @ 5 mls/hr 12/03/23 16:00 12/04/23 10:35 IV 0 mg/hr .Q25H ARPAN 0 mls/hr Titration Protocol 5 MG/HR Insulin Human Lispro 1 - 9 unit 12/03/23 21:00 12/04/23 11:47 Insulin Lispro 300 Unit/3 Ml Pen SUBQ 3 unit 0800,1200,1700,2100 ARPAN Administration Protocol Metoprolol Tartrate 25 mg 12/04/23 10:57 12/04/23 11:58 Metoprolol Tartrate 25 Mg Tablet PO 25 mg BID ARPAN Administration Nystatin 0 applic 12/03/23 21:00 12/04/23 09:21 Nystatin Powder 15 Gm TOP 1 applic BID ARPAN Administration Potassium Chloride 40 meq 12/04/23 15:00 Potassium Chloride 20 Meq/15 Ml Udc PO 12/04/23 16:00 ONCE ARPAN Sodium Chloride 10 ml 12/03/23 15:25 Sodium Chloride Flush 0.9% 10 Ml Syringe IVP PRN PRN NEEDED PER PROVIDER ORDERS Sodium Chloride 10 ml 12/03/23 17:00 12/04/23 09:22 Sodium Chloride Flush 0.9% 10 Ml Syringe IVP 10 ml 0100,0900,1700 ARPAN Administration Spironolactone 25 mg 12/04/23 11:00 12/04/23 11:58 Spironolactone 25 Mg Tablet PO 25 mg DAILY ARPAN Administration Furosemide [Lasix] 40 mg PO DAILY 12/03/23 Objective - Vital Signs/Intake & Output Reviewed Vital Signs: Yes Vital Signs: Vital Signs x48h Temp Pulse Resp BP BP Pulse Ox O2 Flow Rate 12/04/23 12:00 105 H 21 105/93 H 95 2 12/04/23 11:58 108/85 H 12/04/23 11:00 92 20 101/63 95 2 12/04/23 10:55 94 20 89/65 L 95 2 12/04/23 10:49 112 H 22 80/66 L 95 2 12/04/23 10:43 98 24 83/58 L 96 2 12/04/23 10:40 91 23 82/67 L 94 2 12/04/23 10:32 92 24 96/66 94 2 12/04/23 10:30 92 26 H 93/63 94 2 12/04/23 10:17 122 H 131/71 H 135/104 H 12/04/23 10:06 135/104 H 12/04/23 10:00 96 26 H 131/71 H 92 2 12/04/23 08:59 36.9 C 12/04/23 08:00 102 H 23 117/67 92 2 12/04/23 07:00 107 H 27 H 105/57 L 93 2 12/04/23 06:00 36.7 C 110 H 24 127/59 L 95 2 Intake & Output: Intake & Output 12/01/23 12/02/23 12/03/23 12/04/23 23:59 23:59 23:59 23:59 Intake Total 153.25 1243.583 Output Total 0 575 Balance 153.25 668.583 - Objective General Appearance: positive: No acute distress, Alert Respiratory: positive: No respiratory distress (bibasilar rales, diminished at bases R>L) Cardiovascular: positive: No murmur, Irregularly irregular, Tachycardia Abdomen: positive: Non-tender, Nml bowel sounds, No distention Skin: positive: Skin rash, Other (Erythematous rash on face, legs, abdomen, chest. Open lesions on bilateral dorsum of feet with serosanginous drainage.) Extremities: positive: Non-tender, Pedal edema (3-4+ edema BLE) Neurologic/Psychiatric: positive: Oriented x3, Mood/affect nml - Lab Results Fish Bones: 12/03/23 11:30 12/04/23 05:17 Other Labs: Lab Results x24hrs 12/04/23 12/04/23 12/04/23 Range/Units 11:41 07:31 05:17 PT (9.9-12.6) secs INR (0.8-1.2) Sodium 138 (135-145) mmol/L Potassium 3.3 L (3.5-4.5) mmol/L Chloride 98 L (101-111) mmol/L Carbon Dioxide 31 (21-32) mmol/L Anion Gap 9.0 (6-13) BUN 26 H (6-20) mg/dL Creatinine 0.9 (0.6-1.3) mg/dL Estimated GFR (MDRD) 61 L (>89) Glucose 149 H (74-104) mg/dL POC Whole Bld Glucose 205 H 147 H (70 - 100) mg/dL Calcium 8.7 (8.5-10.3) mg/dL Phosphorus 4.0 (2.5-5.0) mg/dL Magnesium 1.8 (1.7-2.3) mg/dL TSH (0.34-5.60) uIU/mL Nasal Screen MRSA (PCR) (NEGATIVE) 12/03/23 12/03/23 12/03/23 Range/Units 20:45 17:08 17:00 PT (9.9-12.6) secs INR (0.8-1.2) Sodium (135-145) mmol/L Potassium (3.5-4.5) mmol/L Chloride (101-111) mmol/L Carbon Dioxide (21-32) mmol/L Anion Gap (6-13) BUN (6-20) mg/dL Creatinine (0.6-1.3) mg/dL Estimated GFR (MDRD) (>89) Glucose (74-104) mg/dL POC Whole Bld Glucose 173 H 131 H (70 - 100) mg/dL Calcium (8.5-10.3) mg/dL Phosphorus (2.5-5.0) mg/dL Magnesium (1.7-2.3) mg/dL TSH (0.34-5.60) uIU/mL Nasal Screen MRSA (PCR) NEGATIVE (NEGATIVE) 12/03/23 12/03/23 Range/Units 13:41 11:38 PT 14.0 H (9.9-12.6) secs INR 1.3 H (0.8-1.2) Sodium (135-145) mmol/L Potassium (3.5-4.5) mmol/L Chloride (101-111) mmol/L Carbon Dioxide (21-32) mmol/L Anion Gap (6-13) BUN (6-20) mg/dL Creatinine (0.6-1.3) mg/dL Estimated GFR (MDRD) (>89) Glucose (74-104) mg/dL POC Whole Bld Glucose (70 - 100) mg/dL Calcium (8.5-10.3) mg/dL Phosphorus 3.5 (2.5-5.0) mg/dL Magnesium 1.7 (1.7-2.3) mg/dL TSH 3.73 (0.34-5.60) uIU/mL Nasal Screen MRSA (PCR) (NEGATIVE) ABX Reporting Has patient been on IV antibiotics over the past 48 hours?: No Assessment/Plan - Problem List (1) Atrial fibrillation with rapid ventricular response Impression: HR 100-140s. Improvement with 2 IVP doses of diltiazem in ED, did not respond with metoprolol. EKG afib with RVR without ischemic channges. Taking diltiazem at home (states metoprolol was ineffective). 3rd ED visit for afib with RVR. [id number] is 2 (female, age). TSH in normal range. Plan: Diltiazem gtt, goal HR <110 Start PO metoprolol, attempt to wean down diltiazem gtt Echo pending Unable to afford Xarelto. Start Lovenox for now, then plan to start warfarin (due to cost of DOAC) vs consider starting Eliquis if affordable. Will need to discuss compliance with pt. 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 Reports following low-salt diet and the Lasix wasn't working. S/p Bumex in ED (total of 4 mg). Reports baseline weight is ~225 lb. Plan: Continue diuresis, change to PO Bumex dosing Echo pending, prelim verbal report of EF 25% NO LASIX (suspect drug reaction of rash) Added beta emory Added spironolactone Add ACEi when BP can tolerate Monitor lytes while on diuresis to keep K~4 and Mg~2 I&O, daily weights Low salt <3-4g diet Currently on O2, wean as able, goal sat 92% Needs continued teaching regarding CHF Will need new PCP and f/u with cardiology (has appt end of February currently) (3) Hypokalemia Impression: Due to diuresis. Plan: Monitor K and Mg while on diuresis Replace as needed to keep K~4, Mg~2 (4) Rash Impression: C/o significant pruritus on admit which has improved somewhat. Suspect this rash is due to use of Lasix. No wheezing or other signs of worsening drug reaction. Has been off Lasix x 3d prior to admission. Plan: NO LASIX IN FUTURE Consider systemic and/or topical antihistamines if needed Caution with sulfa drugs (potential for cross-reaction) (5) Obesity Impression: BMI 43. Has had recent weight gain from CHF. Plan: outpatient follow-up to [facility] for BAKARI Qualifiers: Obesity type: unspecified obesity type Obesity classification: adult class 3 (BMI >= 40) Body mass index: BMI 40.0-44.9 Qualified Code(s): E66.01 - Morbid (severe) obesity due to excess calories; Z68.41 - Body mass index [BMI] 40.0-44.9, adult (6) Skin ulcer Impression: Superficial ulcerations noted on dorsum of bilateral feet with serosanginous drainage, suspect due to fluid overload. Plan: Keep area clean and dry with dressing changes daily and prn Qualifiers: Non-pressure ulcer stage: limited to breakdown of skin Qualified Code(s): L98.491 - Non-pressure chronic ulcer of skin of other sites limited to breakdown of skin
[2023-12-04] MEDS: METOPROLOL 5 MG/5 ML VIAL IVP SCH ×2 (14:44)
[2023-12-04] MEDS: POTASSIUM CHLORIDE 20 MEQ/15 ML UDC PO SCH (16:57)
[2023-12-05 06:34] LABS: MAGNESIUM 1.8 mg/dL (1.7-2.3); PHOSPHORUS 4.6 mg/dL (2.5-5.0)
[2023-12-05 06:41] LABS: CALCIUM, IONIZED 1.05 mmol/L (1.15-1.33); VBG PH 7.423 (7.31-7.41)
[2023-12-05 06:54] LABS: CREATININE 1.4 mg/dL (0.6-1.3); POTASSIUM 3.9 mmol/L (3.5-4.5)
[2023-12-05] MEDS: POTASSIUM CHLORIDE 20 MEQ TABLET PO ONE (07:07)
[2023-12-05] MEDS: CALCIUM CARBONATE CHEW 500 MG TABLET PO SCH (07:07)
[2023-12-05] MEDS: MAGNESIUM OXIDE 400 MG TABLET PO ONE (07:07)
--- NOTE | 2023-12-05 08:54 | PROVIDER PROGRESS NOTE ---
Subjective - Prog Note Date Prog Note Date: 12/05/23 Prog Note Time: 13:50 - Subjective Pt reports feeling: Improved (seen up in chair, rash less itchy and red, still has THOMPSON but a bit improved, long discussion with pt regarding importance of [facility], she is willing to take a DOAC or warfarin but cost is an issue) Objective - Vital Signs/Intake & Output Vital Signs: Vital Signs x48h Temp Pulse Resp BP BP Pulse Ox O2 Flow Rate 12/05/23 08:00 36.6 C 125 H 20 104/68 97 2 12/05/23 07:00 120 H 21 113/84 H 98 2 12/05/23 06:00 36.7 C 127 H 15 107/67 96 2 12/05/23 05:57 101/76 12/05/23 05:00 120 H 17 94/71 97 2 12/05/23 04:00 126 H 19 94/65 94 2 12/05/23 03:00 114 H 28 H 98/77 97 2 12/05/23 02:00 115 H 19 90/70 96 2 12/05/23 01:00 126 H 19 96/75 94 2 Intake & Output: Intake & Output 12/02/23 12/03/23 12/04/23 12/05/23 23:59 23:59 23:59 23:59 Intake Total 153.25 1833.583 375 Output Total 0 650 80 Balance 153.25 1183.583 295 - Lab Results Fish Bones: 12/03/23 11:30 12/05/23 06:07 Other Labs: Lab Results x24hrs 12/05/23 12/05/23 12/05/23 Range/Units 07:43 06:07 06:07 VBG pH 7.423 H (7.31-7.41) Ionized Calcium 1.05 L (1.15-1.33) mmol/L Sodium (135-145) mmol/L Potassium (3.5-4.5) mmol/L Chloride (101-111) mmol/L Carbon Dioxide (21-32) mmol/L Anion Gap (6-13) BUN (6-20) mg/dL Creatinine (0.6-1.3) mg/dL Estimated GFR (MDRD) (>89) Glucose (74-104) mg/dL POC Whole Bld Glucose 171 H (70 - 100) mg/dL Calcium (8.5-10.3) mg/dL Phosphorus 4.6 (2.5-5.0) mg/dL Magnesium 1.8 (1.7-2.3) mg/dL 12/05/23 12/04/23 12/04/23 Range/Units 06:07 20:40 16:50 VBG pH (7.31-7.41) Ionized Calcium (1.15-1.33) mmol/L Sodium 137 (135-145) mmol/L Potassium 3.9 (3.5-4.5) mmol/L Chloride 96 L (101-111) mmol/L Carbon Dioxide 31 (21-32) mmol/L Anion Gap 10.0 (6-13) BUN 34 H (6-20) mg/dL Creatinine 1.4 H (0.6-1.3) mg/dL Estimated GFR (MDRD) 37 L (>89) Glucose 154 H (74-104) mg/dL POC Whole Bld Glucose 216 H 182 H (70 - 100) mg/dL Calcium 9.0 (8.5-10.3) mg/dL Phosphorus (2.5-5.0) mg/dL Magnesium (1.7-2.3) mg/dL 12/04/23 Range/Units 11:41 VBG pH (7.31-7.41) Ionized Calcium (1.15-1.33) mmol/L Sodium (135-145) mmol/L Potassium (3.5-4.5) mmol/L Chloride (101-111) mmol/L Carbon Dioxide (21-32) mmol/L Anion Gap (6-13) BUN (6-20) mg/dL Creatinine (0.6-1.3) mg/dL Estimated GFR (MDRD) (>89) Glucose (74-104) mg/dL POC Whole Bld Glucose 205 H (70 - 100) mg/dL Calcium (8.5-10.3) mg/dL Phosphorus (2.5-5.0) mg/dL Magnesium (1.7-2.3) mg/dL ABX Reporting Has patient been on IV antibiotics over the past 48 hours?: No Assessment/Plan - Problem List (1) Atrial fibrillation with rapid ventricular response Impression: HR 90-140s. Improvement with 2 IVP doses of diltiazem in ED, did not respond with IV metoprolol. EKG afib with RVR without ischemic channges. Taking diltiazem at home (states metoprolol was ineffective). 3rd ED visit for afib with RVR. [id number] is 2 (female, age). TSH in normal range. Plan: Was on diltiazem gtt at max dose without significant improvement in HR. Diltiazem gtt was weaned off to PO metoprolol. HR has been difficult to control, options for controlling agents limited by hypotension. Considered digoxin but will defer for now as she has already been on multiple AV oumar blocking agents Echo final report pending, prelim read EF 25% Considered milrinone to decrease afterload and increase contractility (in combination with amiodarone) but milrinone is not available at this facility Considered dobutamine but contraindicated due to uncontrolled tachycardia Consider amiodarone Consider discussion with cardiology and/or transfer to outside facility where cardiology is available Goal HR<110 Unable to afford Xarelto (has no Rx coverage), could consider generic dabigatran but with GoodRx coupon this is ~$77 month. Continue Lovenox, started warfarin. Pt agrees to get INR monitored. Discussed dietary restrictions and drug interactions. 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 Reports following low-salt diet and the Lasix wasn't working. S/p Bumex in ED (total of 4 mg). Reports baseline weight is ~225 lb. Had been on Bumex PO with suboptimal response, still a bit fluid positive. Plan: Likely needs more diuresis but dosing has been limited by hypotension Echo final report pending, prelim verbal report of EF 25% As above considered milrinone NO LASIX (drug reaction of rash) Continue beta emory, has not been able to tolerate metoprolol well due to hypotension, may need to consider change to carvedilol low-dose Continue spironolactone as tolerated Add ACEi when BP can tolerate Monitor lytes to keep K~4 and Mg~2 I&O, daily weights Low salt <3-4g diet Needs continued teaching regarding CHF, long discussion with pt 3/3 regarding need for compliance and how to manage new poly-drug regimen at home Will need new PCP and f/u with cardiology (has appt end of February currently) (3) Hypokalemia Impression: Improved. Plan: monitor K and Mg (4) Rash Impression: Improved. C/o significant pruritus on admit which has improved. Suspect due to use of Lasix. No wheezing or other signs of worsening drug reaction. Plan: NO LASIX IN FUTURE Lasix and sulfa added to allergy list (5) Obesity Impression: BMI 43. Has had recent weight gain from CHF. Plan: outpatient follow-up to eval for BAKARI Qualifiers: Obesity type: unspecified obesity type Obesity classification: adult class 3 (BMI >= 40) Body mass index: BMI 40.0-44.9 Qualified Code(s): E66.01 - Morbid (severe) obesity due to excess calories; Z68.41 - Body mass index [BMI] 40.0-44.9, adult (6) Skin ulcer Impression: Superficial ulcerations noted on dorsum of bilateral feet with serosanginous drainage, suspect due to fluid overload. Plan: Keep area clean and dry with dressing changes daily and prn Qualifiers: Non-pressure ulcer stage: limited to breakdown of skin Qualified Code(s): L98.491 - Non-pressure chronic ulcer of skin of other sites limited to breakdown of skin
[2023-12-05] MEDS ORDERED: METOPROLOL TARTRATE 50 MG TABLET PO SCH (09:00)
[2023-12-05 09:31] LABS: ALBUMIN 3.5 g/dL (3.2-5.5); BILIRUBIN,DIRECT 0.33 mg/dL (0.03-0.18); BILIRUBIN,TOTAL 1.1 mg/dL (0.2-1.0)
[2023-12-05] MEDS: METOPROLOL TARTRATE 25 MG TABLET PO SCH (12:26)
[2023-12-05] MEDS: MAGNESIUM OXIDE 400 MG TABLET PO SCH (13:21)
[2023-12-05] MEDS: POTASSIUM CHLORIDE 20 MEQ/15 ML UDC PO SCH (13:21)
[2023-12-05] MEDS: CALCIUM GLUC 1,000MG/50ML-NACL 1,000 MG/50 ML BAG IV ONE (13:21)
[2023-12-05] MEDS ORDERED: metOLazone 2.5 MG TABLET PO SCH (13:30)
[2023-12-05] MEDS: AMIODARONE 150 MG/100 ML 100 ML IV ONE (16:30)
[2023-12-05] MEDS: AMIODARONE 360 MG/200 ML 200 ML IV ONE (16:58)
[2023-12-05] MEDS ORDERED: WARFARIN 5 MG TABLET PO SCH (21:00)
[2023-12-05] MEDS: WARFARIN 5 MG TABLET PO SCH (21:22)
[2023-12-05] MEDS ORDERED: AMIODARONE 360 MG/200 ML 200 ML IV ONE (21:51)
[2023-12-05] MEDS: AMIODARONE 360 MG/200 ML 200 ML IV SCH (23:11)
[2023-12-06 06:10] LABS: CALCIUM 9.3 mg/dL (8.5-10.3); CREATININE 1.7 mg/dL (0.6-1.3); INR 1.6 (0.8-1.2); PT - PROTHROMBIN TIME 17.2 secs (9.9-12.6)
[2023-12-06] MEDS: SODIUM CHLORIDE 0.9% 1,000 ML IV SCH (08:37)
[2023-12-06 08:39] LABS: ESTIMATED AVERAGE GLUCOSE 171 mg/dL (70-100); HEMOGLOBIN A1c% 7.6 % (4.27-6.07)
[2023-12-06] MEDS: AMIODARONE 200 MG TABLET PO SCH (10:33)
--- NOTE | 2023-12-06 11:04 | PROVIDER PROGRESS NOTE ---
Subjective - Prog Note Date Prog Note Date: 12/06/23 Prog Note Time: 11:02 - Subjective Pt reports feeling: Improved (States feeling a bit better, had some concern about starting a new medicine (amiodarone), seems to get anxiety when any new meds are started. HR improved on amiodarone. Has been told before she has DM, did diet control) Subjective: This patient still requires hospitalization due to uncontrolled heart rate and decompensated CHF. The discharge plan will tentatively be back to home. Current Medications - Current Medications Current Medications: Active Medications Generic Name Dose Route Start Last Admin Trade Name Freq PRN Reason Stop Dose Admin Amiodarone HCl 400 mg 12/06/23 09:05 12/06/23 10:33 Amiodarone 200 Mg Tablet PO 400 mg TID ARPAN Administration Enoxaparin Sodium 60 mg 12/03/23 15:36 12/06/23 08:37 Enoxaparin 60 Mg/0.6 Ml Syringe SUBQ 60 mg BID ARPAN Administration Amiodarone HCl/Dextrose 200 mls @ 16.667 mls/hr 12/05/23 23:00 12/05/23 23:11 Nexterone 360 Mg/200 Ml IV 0.5 mg/min .Q12H ARPAN 16.667 mls/hr Administration 0.5 MG/MIN Sodium Chloride 1,000 mls @ 83.333 mls/hr 12/06/23 08:00 12/06/23 08:37 Normal Saline 0.9% IV 12/06/23 19:59 83.333 mls/hr .Q12H ARPAN Administration Insulin Human Lispro 1 - 9 unit 12/03/23 21:00 12/06/23 08:38 Insulin Lispro 300 Unit/3 Ml Pen SUBQ 1 unit 0800,1200,1700,2100 ARPAN Administration Protocol Magnesium Oxide 400 mg 12/05/23 13:00 12/06/23 08:37 Magnesium Oxide 400 Mg Tablet PO 400 mg DAILYWM ARPAN Administration Multivitamins/Minerals 1 tab 12/06/23 11:00 Multivitamin W/Minerals Tablet PO DAILYWM ARPAN Nystatin 0 applic 12/03/23 21:00 12/06/23 08:37 Nystatin Powder 15 Gm TOP 1 applic BID ARPAN Administration Sodium Chloride 10 ml 12/03/23 15:25 Sodium Chloride Flush 0.9% 10 Ml Syringe IVP PRN PRN NEEDED PER PROVIDER ORDERS Sodium Chloride 10 ml 12/03/23 17:00 12/06/23 08:38 Sodium Chloride Flush 0.9% 10 Ml Syringe IVP 10 ml 0100,0900,1700 ARPAN Administration Warfarin Sodium 2.5 mg 12/05/23 21:00 12/05/23 21:22 Warfarin 5 Mg Tablet PO 2.5 mg QPM ARPAN Administration Furosemide [Lasix] 40 mg PO DAILY 12/03/23 Objective - Vital Signs/Intake & Output Reviewed Vital Signs: Yes Vital Signs: Vital Signs Temp Pulse Resp BP Pulse Ox O2 Flow Rate 12/06/23 10:00 115 H 16 100/88 H 93 2 12/06/23 09:00 120 H 13 97/78 94 2 12/06/23 08:00 36.5 C 112 H 21 111/76 98 2 Intake & Output: Intake & Output 12/03/23 12/04/23 12/05/23 12/06/23 23:59 23:59 23:59 23:59 Intake Total 153.25 1833.583 425 480 Output Total 0 650 480 200 Balance 153.25 1183.583 -55 280 - Objective General Appearance: positive: No acute distress, Alert Eyes Bilateral: positive: Normal inspection Respiratory: positive: Chest non-tender, No respiratory distress, Breath sounds nml Cardiovascular: positive: No murmur, Irregularly irregular, Tachycardia Abdomen: positive: Non-tender, Nml bowel sounds, No distention Skin: positive: Warm, Dry, Other (Rash significantly improved) Extremities: positive: Pedal edema (3+ BLE edema, erythema on both LE) Neurologic/Psychiatric: positive: Oriented x3, Sensation nml, Mood/affect nml - Lab Results Fish Bones: 12/03/23 11:30 12/06/23 05:11 Other Labs: Lab Results x24hrs 12/06/23 12/06/23 12/06/23 Range/Units 08:26 05:11 05:11 PT 17.2 H (9.9-12.6) secs INR 1.6 H (0.8-1.2) Sodium (135-145) mmol/L Potassium (3.5-4.5) mmol/L Chloride (101-111) mmol/L Carbon Dioxide (21-32) mmol/L Anion Gap (6-13) BUN (6-20) mg/dL Creatinine (0.6-1.3) mg/dL Estimated GFR (MDRD) (>89) Glucose (74-104) mg/dL POC Whole Bld Glucose 161 H (70 - 100) mg/dL Estimat Average Glucose 171 H (70-100) mg/dL Hemoglobin A1c % 7.6 H (4.27-6.07) % Calcium (8.5-10.3) mg/dL 12/06/23 12/05/23 12/05/23 Range/Units 05:11 20:43 16:50 PT (9.9-12.6) secs INR (0.8-1.2) Sodium 134 L (135-145) mmol/L Potassium 5.0 H (3.5-4.5) mmol/L Chloride 96 L (101-111) mmol/L Carbon Dioxide 28 (21-32) mmol/L Anion Gap 10.0 (6-13) BUN 43 H (6-20) mg/dL Creatinine 1.7 H (0.6-1.3) mg/dL Estimated GFR (MDRD) 29 L (>89) Glucose 181 H (74-104) mg/dL POC Whole Bld Glucose 216 H 218 H (70 - 100) mg/dL Estimat Average Glucose (70-100) mg/dL Hemoglobin A1c % (4.27-6.07) % Calcium 9.3 (8.5-10.3) mg/dL 12/05/23 Range/Units 11:45 PT (9.9-12.6) secs INR (0.8-1.2) Sodium (135-145) mmol/L Potassium (3.5-4.5) mmol/L Chloride (101-111) mmol/L Carbon Dioxide (21-32) mmol/L Anion Gap (6-13) BUN (6-20) mg/dL Creatinine (0.6-1.3) mg/dL Estimated GFR (MDRD) (>89) Glucose (74-104) mg/dL POC Whole Bld Glucose 173 H (70 - 100) mg/dL Estimat Average Glucose (70-100) mg/dL Hemoglobin A1c % (4.27-6.07) % Calcium (8.5-10.3) mg/dL Assessment/Plan - Problem List (1) Atrial fibrillation with rapid ventricular response Impression: Presented with HR 90-140s, improved post IV diltiazem, did not respond with IV metoprolol. EKG afib with RVR without ischemic changes. Taking diltiazem at home (states metoprolol was ineffective). 3rd ED visit for afib with RVR. [id number] VASC is 2 (female, age). TSH normal. Was on diltiazem gtt at max dose without significant improvement in HR, weaned off to PO metoprolol which was not tolerated due to hypotension. HR has been difficult to control (options for controlling agents limited by hypotension). 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 Plan: Goal HR<110 Considered digoxin but will defer for now as she has already been on multiple AV oumar blocking agents Echo final report pending, prelim read EF 25% Considered milrinone to decrease afterload and increase contractility (in combination with amiodarone) but milrinone is not available at this facility Dobutamine contraindicated due to uncontrolled tachycardia Started amiodarone with improvement in HR Unable to afford Xarelto or generic dabigatran (has no Rx coverage). Continue Lovenox, started warfarin. Pt agrees to get INR monitored. Discussed dietary restrictions and drug interactions. 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 Reported THOMPSON, fatigue, and orthopnea since July. S/p Bumex in ED (total of 4 mg). Reports baseline weight is ~225 lb. Here had been on Bumex PO with suboptimal response. Plan: Likely needs more diuresis but dosing limited by hypotension Echo final report pending, prelim verbal report of EF 25% As above considered milrinone NO LASIX (drug reaction of rash) Did not tolerate metoprolol due to hypotension, consider change to carvedilol low-dose Stopped spironolactone due to hypotension, restart as tolerated Add ACEi when BP can tolerate Monitor lytes to keep K~4 and Mg~2 I&O, daily weights Low salt <3-4g diet Needs continued teaching regarding CHF, long discussion with pt 3/3 regarding need for compliance and how to manage new poly-drug regimen at home Will need new PCP and f/u with cardiology (has appt end of February currently) (3) Tachycardia-induced cardiomyopathy Impression: As above (4) EMILY (acute kidney injury) Impression: Cr 1.7 today, was 1.0 on admission. Suspect due to diuresis in setting of fluid overload. Plan: give some IVF today Monitor creatinine Hold diuresis (5) Diabetes mellitus Impression: A1c 7.6, indicating diabetes. Has been told she was "borderline" in the past and controlled it with diet. Admits she has not been eating well. Plan: Continue insulin protocol while inpatient Consider starting metformin at discharge if her creatinine can tolerate Social work following, has financial challenges Qualifiers: Diabetes mellitus type: other specified (including OLY) Diabetes mellitus bed bug exterminator insulin use: without bed bug exterminator use Diabetes mellitus complication st atus: with other specified complication Qualified Code(s): E13.69 - Other specified diabetes mellitus with other specified complication (6) Rash Impression: Improved. C/o significant pruritus on admit which has improved. Suspect due to use of Lasix. No wheezing or other signs of worsening drug reaction. Plan: NO LASIX IN FUTURE Lasix and sulfa added to allergy list (7) Skin ulcer Impression: Superficial ulcerations noted on dorsum of bilateral feet with serosanginous drainage, suspect due to fluid overload. Plan: Keep area clean and dry with dressing changes daily and prn Qualifiers: Non-pressure ulcer stage: limited to breakdown of skin Qualified Code(s): L98.491 - Non-pressure chronic ulcer of skin of other sites limited to breakdown of skin (8) Obesity Impression: BMI 43. Has had recent weight gain from CHF. Plan: outpatient follow-up to al for BAKARI Qualifiers: Obesity type: unspecified obesity type Obesity classification: adult class 3 (BMI >= 40) Body mass index: BMI 40.0-44.9 (9) Hypokalemia Impression: Resolved Impression - Impression Assessment/Impression: This is Day of Life #[] for this baby [] born via at [today/yesterday] and transitioning []. This was entered in error
[2023-12-06] MEDS: MULTIVITAMIN W/MINERALS TABLET PO SCH (12:15)
[2023-12-06] MEDS: carvediloL 3.125 MG TABLET PO SCH (21:17)
[2023-12-06] MEDS: SODIUM CHLORIDE FLUSH 0.9% 10 ML SYRINGE IVP PRN (23:18)
[2023-12-07 06:34] LABS: INR 1.5 (0.8-1.2); PT - PROTHROMBIN TIME 16.6 secs (9.9-12.6)
[2023-12-07 06:41] LABS: CALCIUM 8.7 mg/dL (8.5-10.3); CREATININE 1.5 mg/dL (0.6-1.3); MAGNESIUM 1.8 mg/dL (1.7-2.3); PHOSPHORUS 4.3 mg/dL (2.5-5.0); POTASSIUM 4.1 mmol/L (3.5-4.5)
--- NOTE | 2023-12-07 09:15 | PROVIDER PROGRESS NOTE ---
Subjective - Prog Note Date Prog Note Date: 12/07/23 Prog Note Time: 19:00 (Patient still has sign of fluid overload, EMILY, not stable for discharge yet) - Subjective Pt reports feeling: Improved (better, less redness of leg, less swollen) Subjective: Patient reports feeling better. No chest pain, no palpitation Current Medications - Current Medications Current Medications: Active Medications Generic Name Dose Route Start Last Admin Trade Name Freq PRN Reason Stop Dose Admin Amiodarone HCl 400 mg 12/06/23 09:05 12/07/23 21:18 Amiodarone 200 Mg Tablet PO 400 mg TID ARPAN Administration Enoxaparin Sodium 60 mg 12/03/23 15:36 12/07/23 21:17 Enoxaparin 60 Mg/0.6 Ml Syringe SUBQ 60 mg BID ARPAN Administration Insulin Human Lispro 1 - 9 unit 12/03/23 21:00 12/07/23 21:18 Insulin Lispro 300 Unit/3 Ml Pen SUBQ 3 unit 0800,1200,1700,2100 ARPAN Administration Protocol Magnesium Oxide 400 mg 12/05/23 13:00 12/07/23 08:10 Magnesium Oxide 400 Mg Tablet PO 400 mg DAILYWM ARPAN Administration Metoprolol Succinate 50 mg 12/07/23 10:00 12/07/23 11:52 Metoprolol Succinate 50 Mg Tablet PO 50 mg DAILY ARPAN Administration Multivitamins/Minerals 1 tab 12/06/23 11:00 12/07/23 08:10 Multivitamin W/Minerals Tablet PO 1 tab DAILYWM ARPAN Administration Nystatin 0 applic 12/03/23 21:00 12/07/23 21:17 Nystatin Powder 15 Gm TOP 1 applic BID ARPAN Administration Sodium Chloride 10 ml 12/03/23 15:25 12/07/23 21:18 Sodium Chloride Flush 0.9% 10 Ml Syringe IVP 10 ml PRN PRN Administration NEEDED PER PROVIDER ORDERS Sodium Chloride 10 ml 12/03/23 17:00 12/07/23 16:51 Sodium Chloride Flush 0.9% 10 Ml Syringe IVP 10 ml 0100,0900,1700 ARPAN Administration Warfarin Sodium 2.5 mg 12/05/23 21:00 12/07/23 21:18 Warfarin 5 Mg Tablet PO 2.5 mg QPM ARPAN Administration Furosemide [Lasix] 40 mg PO DAILY 12/03/23 Objective - Vital Signs/Intake & Output Reviewed Vital Signs: Yes Vital Signs: Vital Signs Temp Pulse Resp BP Pulse Ox 12/07/23 09:00 110 H 21 125/77 91 L 12/07/23 08:00 36.7 C 117 H 24 114/72 96 12/07/23 07:00 115 H 19 124/92 H 95 12/07/23 06:00 117 H 22 103/76 97 Intake & Output: Intake & Output 12/04/23 12/05/23 12/06/23 12/07/23 23:59 23:59 23:59 23:59 Intake Total 1833.436 665 3892 690 Output Total 650 480 775 200 Balance 1183.268 304 5586 490 - Objective General Appearance: positive: Alert, Mild distress (due to discomfort) Eyes Bilateral: positive: Normal inspection, PERRL, EOMI, Other (dry skin) ENT: positive: ENT inspection nml Neck: positive: Nml inspection, No JVD Respiratory: positive: No respiratory distress. negative: Wheezes, Rales Cardiovascular: positive: Tachycardia, Other (tachycardia resolved in pm) Abdomen: positive: Non-tender. negative: Guarding, Rebound Skin: positive: Color nml, Dry, Skin rash Extremities: positive: Non-tender, No pedal edema Neurologic/Psychiatric: positive: Oriented x3, CN's nml (2-12) - Lab Results Fish Bones: 12/03/23 11:30 12/07/23 05:41 Other Labs: Lab Results x24hrs 12/07/23 12/07/23 12/07/23 Range/Units 07:49 05:41 05:41 PT 16.6 H (9.9-12.6) secs INR 1.5 H (0.8-1.2) Sodium 134 L (135-145) mmol/L Potassium 4.1 (3.5-4.5) mmol/L Chloride 97 L (101-111) mmol/L Carbon Dioxide 29 (21-32) mmol/L Anion Gap 8.0 (6-13) BUN 47 H (6-20) mg/dL Creatinine 1.5 H (0.6-1.3) mg/dL Estimated GFR (MDRD) 34 L (>89) Glucose 153 H (74-104) mg/dL POC Whole Bld Glucose 145 H (70 - 100) mg/dL Calcium 8.7 (8.5-10.3) mg/dL Phosphorus 4.3 (2.5-5.0) mg/dL Magnesium 1.8 (1.7-2.3) mg/dL 12/06/23 12/06/23 12/06/23 Range/Units 20:29 16:57 11:50 PT (9.9-12.6) secs INR (0.8-1.2) Sodium (135-145) mmol/L Potassium (3.5-4.5) mmol/L Chloride (101-111) mmol/L Carbon Dioxide (21-32) mmol/L Anion Gap (6-13) BUN (6-20) mg/dL Creatinine (0.6-1.3) mg/dL Estimated GFR (MDRD) (>89) Glucose (74-104) mg/dL POC Whole Bld Glucose 201 H 201 H 205 H (70 - 100) mg/dL Calcium (8.5-10.3) mg/dL Phosphorus (2.5-5.0) mg/dL Magnesium (1.7-2.3) mg/dL - Diagnostic Imaging Diagnostic Imaging Results: positive: Final report reviewed Sepsis Event Note (H) - Evaluation Current Stage of Sepsis: Ruled out Assessment/Plan - Problem List (1) Atrial fibrillation with rapid ventricular response Impression: improving, rate controlled -off amiodarone drip, on oral for rhythm control -added metoprolol today, HR improved -continue tele -optimum electrolytes (2) Acute on chronic combined systolic and diastolic HF (heart failure), NYHA class 3 Impression: stable still has sign of fluid overload, evidence as swollen legs with slight improvement of leg swollen worsened renal function, hold off diuretic today will give diuretic tomorrow (lasix allergy) (3) Diabetes mellitus Impression: chronic, -on DM diet -on iss, goal BS 120-180 during hospital stay Qualifiers: Diabetes mellitus type: other specified (including OLY) Diabetes mellitus long-term insulin use: without termite technician use Diabetes mellitus complication status: with other specified complication Qualified Code(s): E13.69 - Other specified diabetes mellitus with other specified complication
[2023-12-07] MEDS: METOPROLOL SUCCINATE 50 MG TABLET PO SCH (11:52)
[2023-12-08 04:30] LABS: BASOPHILS # (AUTO) 0.1 10^3/uL (0.0-0.1); BASOPHILS % (AUTO) 0.5 %; EOSINOPHILS # (AUTO) 0.1 10^3/uL (0.0-0.7); EOSINOPHILS % (AUTO) 0.7 %; HCT - HEMATOCRIT 39.5 % (37.0-47.0); HGB - HEMOGLOBIN 12.9 g/dL (12.0-16.0); LYMPHOCYTES # (AUTO) 1.8 10^3/uL (1.5-3.5); LYMPHOCYTES % (AUTO) 16.3 %; MEAN CORPUSCULAR HEMOGLOBIN 28.1 pg (27.0-31.0); MEAN CORPUSCULAR HGB CONC 32.7 g/dL (32.0-36.0); MEAN CORPUSCULAR VOLUME 86.1 fL (81.0-99.0); MONOCYTES % (AUTO) 9.3 %; NEUTROPHILS # (AUTO) 8.1 10^3/uL (1.5-6.6); NEUTROPHILS % (AUTO) 72.7 %; NRBC ABSOLUTE COUNT (AUTO) 0.03 x10^3/uL; NUCLEATED RED BLOOD CELLS AUTO 0.3 /100WBC; PLT - PLATELET COUNT 288 10^3/uL (130-450); RED BLOOD COUNT 4.59 10^6/uL (4.20-5.40); RED CELL DISTRIBUTION WIDTH 14.6 % (12.0-15.0); WHITE BLOOD COUNT 11.1 x10^3/uL (4.8-10.8)
[2023-12-08 04:49] LABS: CREATININE 1.4 mg/dL (0.6-1.3); POTASSIUM 4.4 mmol/L (3.5-4.5)
--- NOTE | 2023-12-08 09:11 | PROVIDER PROGRESS NOTE ---
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), NYHA class 3 Assessment/Plan: Lower extremity swollen, has signs of fluid overload, however with EMILY, unable to give more diuretics Recommend patient to keep both feet up is much as possible (3) Diabetes mellitus Qualifiers: Diabetes mellitus type: other specified (including OLY) Diabetes mellitus mcfp insulin use: without long filler cigar roller machine use Diabetes mellitus complication status: with other specified complication Qualified Code(s): E13.69 - Other specified diabetes mellitus with other specified complication Assessment/Plan: ic, stable Continue on Insulin sliding scale (4) EMILY (acute kidney injury) Assessment/Plan: improvingSlightly Cr 0.9 on admission, worsened to 1.7-->1.5-->1.4 Continue monitoring (5) Skin ulcer Qualifiers: Non-pressure ulcer stage: limited to breakdown of skin Qualified Code(s): L98.491 - Non-pressure chronic ulcer of skin of other sites limited to breakdown of skin Assessment/Plan: both foot dorsal surface with chronic unhealed ulcer, with cold extremity and a very poor circulation, with barely palpable pulses Suspect PAD versus venous stasis ulcer -Check arterial blood flow and SUDHAKAR - Current Meds Current Meds: Current Medications Generic Name Dose Route Start Last Admin Trade Name Eleni PRN Reason Stop Dose Admin Amiodarone HCl 400 mg 12/06/23 09:05 12/08/23 07:00 Amiodarone 200 Mg Tablet PO 400 mg TID ARPAN Administration Enoxaparin Sodium 60 mg 12/03/23 15:36 12/07/23 21:17 Enoxaparin 60 Mg/0.6 Ml Syringe SUBQ 60 mg BID ARPAN Administration Insulin Human Lispro 1 - 9 unit 12/03/23 21:00 12/08/23 08:11 Insulin Lispro 300 Unit/3 Ml Pen SUBQ Not Given 0800,1200,1700,2100 [facility] Protocol Magnesium Oxide 400 mg 12/05/23 13:00 12/08/23 08:11 Magnesium Oxide 400 Mg Tablet PO 400 mg DAILYWM ARPAN Administration Metoprolol Succinate 50 mg 12/07/23 10:00 12/07/23 11:52 Metoprolol Succinate 50 Mg Tablet PO 50 mg DAILY ARPAN Administration Multivitamins/Minerals 1 tab 12/06/23 11:00 12/08/23 08:12 Multivitamin W/Minerals Tablet PO 1 tab DAILYWM ARPAN Administration Nystatin 0 applic 12/03/23 21:00 12/07/23 21:17 Nystatin Powder 15 Gm TOP 1 applic BID ARPAN Administration Sodium Chloride 10 ml 12/03/23 15:25 12/07/23 21:18 Sodium Chloride Flush 0.9% 10 Ml Syringe IVP 10 ml PRN PRN Administration NEEDED PER PROVIDER ORDERS Sodium Chloride 10 ml 12/03/23 17:00 12/08/23 01:45 Sodium Chloride Flush 0.9% 10 Ml Syringe IVP Not Given 0100,0900,1700 ARPAN Warfarin Sodium 2.5 mg 12/05/23 21:00 12/07/23 21:18 Warfarin 5 Mg Tablet PO 2.5 mg QPM ARPAN Administration - Lab Result Lab results reviewed: Yes Fish Bone Diagrams: 12/08/23 04:24 12/08/23 04:24 - Diagnostic Imaging Results Diagnostic Imaging Results: Final report reviewed - Additional Planning Condition/Complexity: Improved My Orders: My Active Orders 12/07/23 10:00 Metoprolol Succinate [Toprol Xl] 50 mg PO DAILY 12/09/23 05:00 BMP - BASIC METABOLIC PANEL [CHEM] DAILYLAB CBC [CBC - COMP BLD CT W/AUTO DIFF] [HEME] DAILYLAB 12/10/23 05:00 BMP - BASIC METABOLIC PANEL [CHEM] DAILYLAB CBC [CBC - COMP BLD CT W/AUTO DIFF] [HEME] DAILYLAB 12/11/23 05:00 BMP - BASIC METABOLIC PANEL [CHEM] DAILYLAB CBC [CBC - COMP BLD CT W/AUTO DIFF] [HEME] DAILYLAB 12/12/23 05:00 BMP - BASIC METABOLIC PANEL [CHEM] DAILYLAB CBC [CBC - COMP BLD CT W/AUTO DIFF] [HEME] DAILYLAB Plan Discussed with:: Patient Time Spent: 15-30 minutes Subjective - Subjective Patient Reports: Feeling Better (Still feels very weak, Very concerned about the ulcer on her foot) Objective Vital Signs: Vital Signs - 24 hr 12/07/23 12/07/23 12/07/23 10:00 11:00 12:00 Temperature Heart Rate [ 99 107 H 99 Monitoring electrodes] Respiratory 21 26 H 23 Rate Blood Pressure 104/74 100/79 109/79 [Left Brachial artery] O2 Saturation 96 93 95 12/07/23 12/07/23 12/07/23 13:00 14:00 15:00 Temperature 97.9 C H Heart Rate [ 103 H 98 101 H Monitoring electrodes] Respiratory 25 H 20 23 Rate Blood Pressure 112/86 H 112/98 H 105/87 H [Left Brachial artery] O2 Saturation 93 94 92 12/07/23 12/07/23 12/07/23 16:00 17:00 18:00 Temperature 36.7 C Heart Rate [ 90 103 H 99 Monitoring electrodes] Respiratory 32 H 17 16 Rate Blood Pressure 117/90 H 99/78 107/78 [Left Brachial artery] O2 Saturation 92 97 95 12/07/23 12/07/23 12/07/23 19:00 20:00 21:00 Temperature 36.6 C Heart Rate [ 94 100 86 Monitoring electrodes] Respiratory 18 30 H 28 H Rate Blood Pressure 99/85 H 111/67 105/78 [Left Brachial artery] O2 Saturation 98 94 96 12/07/23 12/07/23 12/08/23 22:00 23:00 00:00 Temperature Heart Rate [ 96 98 99 Monitoring electrodes] Respiratory 24 16 17 Rate Blood Pressure 98/79 98/68 112/76 [Left Brachial artery] O2 Saturation 97 94 94 12/08/23 12/08/23 12/08/23 01:00 02:00 03:00 Temperature Heart Rate [ 96 84 90 Monitoring electrodes] Respiratory 29 H 28 H 17 Rate Blood Pressure 111/93 H 114/66 110/78 [Left Brachial artery] O2 Saturation 96 92 92 12/08/23 12/08/23 12/08/23 04:00 05:00 06:00 Temperature Heart Rate [ 95 98 93 Monitoring electrodes] Respiratory 14 26 H 33 H Rate Blood Pressure 113/78 110/79 101/75 [Left Brachial artery] O2 Saturation 96 94 94 12/08/23 12/08/23 07:00 08:00 Temperature 36.6 C Heart Rate [ 83 99 Monitoring electrodes] Respiratory 22 20 Rate Blood Pressure 93/66 103/82 H [Left Brachial artery] O2 Saturation 94 93 Oxygen O2 Source Room air I&O (Last 24 Hrs): Intake and Output Totals x24h 12/06/23 12/07/23 12/08/23 23:59 23:59 23:59 Intake Total 2070 1500 200 Output Total 775 725 175 Balance 1295 775 25 General: Alert, Oriented x3 HEENT: Atraumatic, PERRLA, EOMI Neck: Supple, No JVD Neuro: Alert, Non Focal, CN 2-12 Grossly Intact Cardiovascular: Other (Irregular rate rhythm) Respiratory: Chest non-tender Abdomen: Normal bowel sounds Extremities: Other (Some air swallowing, skin redness was marked, receding from the marked line. Chronic venous stasis wound on the dorsal flat of both feet Cold lower extremities) - Results Results: Laboratory Results WBC 11.1 x10^3/uL (4.8-10.8) H 12/08/23 04:24 RBC 4.59 10^6/uL (4.20-5.40) 12/08/23 04:24 Hgb 12.9 g/dL (12.0-16.0) 12/08/23 04:24 Hct 39.5 % (37.0-47.0) 12/08/23 04:24 MCV 86.1 fL (81.0-99.0) 12/08/23 04:24 MCH 28.1 pg (27.0-31.0) 12/08/23 04:24 MCHC 32.7 g/dL (32.0-36.0) 12/08/23 04:24 RDW 14.6 % (12.0-15.0) 12/08/23 04:24 Plt Count 288 10^3/uL (130-450) 12/08/23 04:24 MPV 11.0 fL (7.9-10.8) H 12/08/23 04:24 Neut # (Auto) 8.1 10^3/uL (1.5-6.6) H 12/08/23 04:24 Lymph # (Auto) 1.8 10^3/uL (1.5-3.5) 12/08/23 04:24 [place] # (Auto) 1.0 10^3/uL (0.0-1.0) 12/08/23 04:24 Eos # (Auto) 0.1 10^3/uL (0.0-0.7) 12/08/23 04:24 Baso # (Auto) 0.1 10^3/uL (0.0-0.1) 12/08/23 04:24 Absolute Nucleated RBC 0.03 x10^3/uL 12/08/23 04:24 Nucleated RBC % 0.3 /100WBC 12/08/23 04:24 PT 16.6 secs (9.9-12.6) H 12/07/23 05:41 INR 1.5 (0.8-1.2) H 12/07/23 05:41 VBG pH 7.423 (7.31-7.41) H 12/05/23 06:07 Ionized Calcium 1.05 mmol/L (1.15-1.33) L 12/05/23 06:07 Sodium 134 mmol/L (135-145) L 12/08/23 04:24 Potassium 4.4 mmol/L (3.5-4.5) 12/08/23 04:24 Chloride 98 mmol/L (101-111) L 12/08/23 04:24 Carbon Dioxide 27 mmol/L (21-32) 12/08/23 04:24 Anion Gap 9.0 (6-13) 12/08/23 04:24 BUN 51 mg/dL (6-20) H 12/08/23 04:24 Creatinine 1.4 mg/dL (0.6-1.3) H 12/08/23 04:24 Estimated GFR (MDRD) 37 (>89) L 12/08/23 04:24 Glucose 159 mg/dL (74-104) H 12/08/23 04:24 POC Whole Bld Glucose 140 mg/dL (70 - 100) H 12/08/23 07:47 Estimat Average Glucose 171 mg/dL (70-100) H 12/06/23 05:11 Hemoglobin A1c % 7.6 % (4.27-6.07) H 12/06/23 05:11 Calcium 9.0 mg/dL (8.5-10.3) 12/08/23 04:24 Phosphorus 4.3 mg/dL (2.5-5.0) 12/07/23 05:41 Magnesium 1.8 mg/dL (1.7-2.3) 12/07/23 05:41 Total Bilirubin 1.1 mg/dL (0.2-1.0) H 12/05/23 06:07 Direct Bilirubin 0.33 mg/dL (0.03-0.18) H 12/05/23 06:07 AST 44 IU/L (10-42) H 12/05/23 06:07 ALT 35 IU/L (10-60) 12/05/23 06:07 Alkaline Phosphatase 70 IU/L (42-121) 12/05/23 06:07 Troponin I High Sens 14.7 ng/L (2.3-14.8) 12/03/23 11:30 B-Natriuretic Peptide 349 pg/mL (5-100) H 12/03/23 11:30 Total Protein 6.0 g/dL (6.4-8.9) L 12/05/23 06:07 Albumin 3.5 g/dL (3.2-5.5) 12/05/23 06:07 Globulin 2.5 g/dL (2.1-4.2) 12/05/23 06:07 Albumin/Globulin Ratio 1.4 (1.0-2.2) 12/03/23 11:30 Lipase 18 U/L (11-82) 12/03/23 11:30 TSH 3.73 uIU/mL (0.34-5.60) 12/03/23 11:38 Nasal Screen MRSA (PCR) NEGATIVE (NEGATIVE) 12/03/23 17:00 Sepsis Event Note (H) - Evaluation Current Stage of Sepsis: Ruled out ABX Reporting Has patient been on IV antibiotics over the past 48 hours?: No
[2023-12-08 09:22] LABS: INR 1.4 (0.8-1.2); PT - PROTHROMBIN TIME 15.6 secs (9.9-12.6)
[2023-12-08] MEDS: WARFARIN 5 MG TABLET PO SCH (13:50)
--- NOTE | 2023-12-09 00:28 | Ultrasound Report ---
PROCEDURE: Ankle Brachial Index INDICATIONS: PAD suspected TECHNIQUE: Ankle-brachial indices were obtained bilaterally and recorded. COMPARISONS: None. FINDINGS: Right ankle brachial index (SUDHAKAR): 0.9 Left ankle brachial index (SUDHAKAR): 0.9 Healing potential: Ankle pressures >55 mm Hg in non-diabetics and >80 mm Hg in diabetics are likely to achieve primary h ealing of ischemic foot ulcers. Toe pressures >30 mm Hg are likely to achieve primary healing of ischemic foot ulcers, toe or transme tatarsal amputations. IMPRESSION: Normal bilateral ankle brachial index. Reviewed by: Milad Peralta MD on 12/09/2023 12:27 AM PST Approved by: Milad Peralta MD on 12/09/2023 12:27 AM PST Station ID: [id number]
--- NOTE | 2023-12-09 00:32 | Ultrasound Report ---
PROCEDURE: Arterial Duplex Lwr Ext BL INDICATIONS: cold lower leg, PAD suspected TECHNIQUE: Color and pulse Doppler interrogation was performed of both lower extremity arterial systems, with im age documentation. COMPARISON: None FINDINGS: Right lower extremity: Common femoral artery: 64.4 cm/sec, with triphasic flow. Deep femoral artery: 32.4 cm/sec, with biphasic flow. Proximal superficial femoral artery: 34.2 cm/sec, with biphasic flow. Mid superficial femoral artery: 44.8 cm/sec, with biphasic flow. Distal superficial femoral artery: 33.5 cm/sec, with biphasic flow. Popliteal artery: 9.9 cm/sec, with monophasic flow. Posterior tibial artery: 19.2 cm/sec, with monophasic flow. Anterior tibial artery/dorsalis pedis: 38.4 cm/sec, with biphasic flow. [place]-scale imaging description: Limited evaluation with significant atherosclerotic plaques are note d throughout visualized right lower extremity arteries. Left lower extremity: Common femoral artery: 48.9 cm/sec, with triphasic flow. Deep femoral artery: 36.7 cm/sec, with triphasic flow. Proximal superficial femoral artery: 44.0 cm/sec, with triphasic flow. Mid superficial femoral artery: 33.1 cm/sec, with biphasic flow. Distal superficial femoral artery: Not well seen Popliteal artery: Not well seen. Posterior tibial artery: 25.5 cm/sec, with monophasic flow. Anterior tibial artery/dorsalis pedis: 15.9 cm/sec, with monophasic flow. [place]-scale imaging description: Limited evaluation of left lower extremity arteries due to patient's body habitus. Suggestion of atherosclerotic disease in visualized left lower extremity arteries. IMPRESSION: 1. Finding is suggestive of hemodynamically significant stenosis involving distal right superficial f emoral artery. 2. Finding is suggestive of hemodynamically significant stenosis involving left mid to distal superfi cial femoral artery. Reviewed by: Milad Peralta MD on 12/09/2023 12:31 AM PST Approved by: Milad Peralta MD on 12/09/2023 12:31 AM PST Station ID: [id number]
[2023-12-09 06:03] LABS: BASOPHILS # (AUTO) 0.1 10^3/uL (0.0-0.1); BASOPHILS % (AUTO) 0.5 %; EOSINOPHILS # (AUTO) 0.1 10^3/uL (0.0-0.7); EOSINOPHILS % (AUTO) 0.5 %; HCT - HEMATOCRIT 38.5 % (37.0-47.0); HGB - HEMOGLOBIN 13.1 g/dL (12.0-16.0); LYMPHOCYTES # (AUTO) 2.3 10^3/uL (1.5-3.5); LYMPHOCYTES % (AUTO) 19.1 %; MEAN CORPUSCULAR HEMOGLOBIN 28.9 pg (27.0-31.0); MEAN CORPUSCULAR VOLUME 84.8 fL (81.0-99.0); MONOCYTES # (AUTO) 1.2 10^3/uL (0.0-1.0); MONOCYTES % (AUTO) 10.4 %; NEUTROPHILS # (AUTO) 8.1 10^3/uL (1.5-6.6); NRBC ABSOLUTE COUNT (AUTO) 0.03 x10^3/uL; NUCLEATED RED BLOOD CELLS AUTO 0.3 /100WBC; PLT - PLATELET COUNT 280 10^3/uL (130-450); RED BLOOD COUNT 4.54 10^6/uL (4.20-5.40); RED CELL DISTRIBUTION WIDTH 14.5 % (12.0-15.0); WHITE BLOOD COUNT 11.8 x10^3/uL (4.8-10.8)
[2023-12-09 06:05] LABS: INR 1.7 (0.8-1.2); PT - PROTHROMBIN TIME 18.4 secs (9.9-12.6)
[2023-12-09 06:16] LABS: CREATININE 1.5 mg/dL (0.6-1.3); POTASSIUM 4.5 mmol/L (3.5-4.5)
--- NOTE | 2023-12-09 07:40 | PROVIDER PROGRESS NOTE ---
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5 -monitoring -avoid nephrotoxic agents (5) Skin ulcer Qualifiers: Non-pressure ulcer stage: limited to breakdown of skin Qualified Code(s): L98.491 - Non-pressure chronic ulcer of skin of other sites limited to breakdown of skin Assessment/Plan: Related to poor perfusion and circulation from PAD and venous stasis (6) PAD (peripheral artery disease) Assessment/Plan: Cold LE, long standing chronic unhealed skin ulcers US Doppler 12/08/2023 showed: significant stenosis involing distal right superficial femoral artery; significant stenosis involving left mid and distal superficial femoral artery -needs outpatient vascular surgery follow up - Current Meds Current Meds: Current Medications Generic Name Dose Route Start Last Admin Trade Name Freq PRN Reason Stop Dose Admin Amiodarone HCl 400 mg 12/06/23 09:05 12/09/23 05:59 Amiodarone 200 Mg Tablet PO 400 mg TID ARPAN Administration Enoxaparin Sodium 60 mg 12/03/23 15:36 12/08/23 21:46 Enoxaparin 60 Mg/0.6 Ml Syringe SUBQ 60 mg BID ARPAN Administration Insulin Human Lispro 1 - 9 unit 12/03/23 21:00 12/08/23 21:45 Insulin Lispro 300 Unit/3 Ml Pen SUBQ 1 unit 0800,1200,1700,2100 ARPAN Administration Protocol Magnesium Oxide 400 mg 12/05/23 13:00 12/08/23 08:11 Magnesium Oxide 400 Mg Tablet PO 400 mg DAILYWM ARPAN Administration Metoprolol Succinate 50 mg 12/07/23 10:00 12/08/23 09:16 Metoprolol Succinate 50 Mg Tablet PO 50 mg DAILY ARPAN Administration Multivitamins/Minerals 1 tab 12/06/23 11:00 12/08/23 08:12 Multivitamin W/Minerals Tablet PO 1 tab DAILYWM ARPAN Administration Nystatin 0 applic 12/03/23 21:00 12/08/23 21:46 Nystatin Powder 15 Gm TOP 1 applic BID ARPAN Administration Sodium Chloride 10 ml 12/03/23 15:25 12/07/23 21:18 Sodium Chloride Flush 0.9% 10 Ml Syringe IVP 10 ml PRN PRN Administration NEEDED PER PROVIDER ORDERS Sodium Chloride 10 ml 12/03/23 17:00 12/09/23 00:13 Sodium Chloride Flush 0.9% 10 Ml Syringe IVP 10 ml 0100,0900,1700 ARPAN Administration Warfarin Sodium 2.5 mg 12/05/23 21:00 12/08/23 21:47 Warfarin 5 Mg Tablet PO 2.5 mg QPM ARPAN Administration - Lab Result Fish Bone Diagrams: 12/09/23 05:42 12/09/23 05:42 - Diagnostic Imaging Results Diagnostic Imaging Results: Final report reviewed - Additional Planning Condition/Complexity: Stable My Orders: My Active Orders 12/08/23 13:56 Fluid Restriction [RC] QSHIFT Miscellaenous Nursing Order [RC] QSHIFT 12/10/23 05:00 BMP - BASIC METABOLIC PANEL [CHEM] DAILYLAB CBC [CBC - COMP BLD CT W/AUTO DIFF] [HEME] DAILYLAB 12/11/23 05:00 BMP - BASIC METABOLIC PANEL [CHEM] DAILYLAB CBC [CBC - COMP BLD CT W/AUTO DIFF] [HEME] DAILYLAB 12/12/23 05:00 BMP - BASIC METABOLIC PANEL [CHEM] DAILYLAB CBC [CBC - COMP BLD CT W/AUTO DIFF] [HEME] DAILYLAB Plan Discussed with:: Patient Time Spent: 31-60 minutes Additional Planning Notes: Await for INR to be therapeutic level 2-3. PT OT recommended patient to have home health with home PT OT and personal care Patient will have PCP appointment , recommend patient to have an vascular surgeon to evaluate her PAD. If patient continue to be stable can be discharged to home tomorrow Subjective - Subjective Patient Reports: Feeling Better (Denies chest pain or shortness of breath Still concerns about the wound on her feet) Objective Vital Signs: Vital Signs - 24 hr 12/08/23 12/08/23 12/08/23 08:00 09:00 10:00 Temperature 36.6 C Heart Rate [ 99 95 90 Monitoring electrodes] Heart Rate [ Sitting] Heart Rate [ Standing] Respiratory 20 22 21 Rate Blood Pressure 103/82 H 113/73 110/69 [Left Brachial artery] Blood Pressure [Sitting] Blood Pressure [Standing] O2 Saturation 93 95 90 L 12/08/23 12/08/23 12/08/23 11:00 11:40 12:00 Temperature 36.5 C Heart Rate [ 92 90 Monitoring electrodes] Heart Rate [ 99 Sitting] Heart Rate [ 103 H Standing] Respiratory 23 25 H Rate Blood Pressure 107/83 H 103/86 H [Left Brachial artery] Blood Pressure 96/78 [Sitting] Blood Pressure 103/74 [Standing] O2 Saturation 96 92 12/08/23 12/08/23 12/08/23 13:00 14:00 15:00 Temperature Heart Rate [ 92 83 108 H Monitoring electrodes] Heart Rate [ Sitting] Heart Rate [ Standing] Respiratory 23 32 H 28 H Rate Blood Pressure 104/89 H 111/87 H 110/87 H [Left Brachial artery] Blood Pressure [Sitting] Blood Pressure [Standing] O2 Saturation 93 93 93 12/08/23 12/08/23 12/08/23 16:00 17:00 20:00 Temperature 36.7 C 36.5 C Heart Rate [ 98 92 92 Monitoring electrodes] Heart Rate [ Sitting] Heart Rate [ Standing] Respiratory 25 H 16 18 Rate Blood Pressure 94/83 H 113/83 H 106/76 [Left Brachial artery] Blood Pressure [Sitting] Blood Pressure [Standing] O2 Saturation 95 98 94 12/09/23 12/09/23 00:02 05:00 Temperature 36.7 C 36.5 C Heart Rate [ 93 87 Monitoring electrodes] Heart Rate [ Sitting] Heart Rate [ Standing] Respiratory 18 20 Rate Blood Pressure 110/77 101/66 [Left Brachial artery] Blood Pressure [Sitting] Blood Pressure [Standing] O2 Saturation 95 94 Oxygen O2 Source Room air I&O (Last 24 Hrs): Intake and Output Totals x24h 12/07/23 12/08/23 12/09/23 23:59 23:59 23:59 Intake Total 1500 1000 Output Total 725 350 180 Balance 775 650 -180 General: Oriented x3, Cooperative HEENT: PERRLA, EOMI Cardiovascular: Other (Irregular rate and rhythm) Respiratory: No respiratory distress Abdomen: No tenderness Extremities: Other (Similar edema as before) - Results Results: Laboratory Results WBC 11.8 x10^3/uL (4.8-10.8) H 12/09/23 05:42 RBC 4.54 10^6/uL (4.20-5.40) 12/09/23 05:42 Hgb 13.1 g/dL (12.0-16.0) 12/09/23 05:42 Hct 38.5 % (37.0-47.0) 12/09/23 05:42 MCV 84.8 fL (81.0-99.0) 12/09/23 05:42 MCH 28.9 pg (27.0-31.0) 12/09/23 05:42 MCHC 34.0 g/dL (32.0-36.0) 12/09/23 05:42 RDW 14.5 % (12.0-15.0) 12/09/23 05:42 Plt Count 280 10^3/uL (130-450) 12/09/23 05:42 MPV 11.0 fL (7.9-10.8) H 12/09/23 05:42 Neut # (Auto) 8.1 10^3/uL (1.5-6.6) H 12/09/23 05:42 Lymph # (Auto) 2.3 10^3/uL (1.5-3.5) 12/09/23 05:42 [place] # (Auto) 1.2 10^3/uL (0.0-1.0) H 12/09/23 05:42 Eos # (Auto) 0.1 10^3/uL (0.0-0.7) 12/09/23 05:42 Baso # (Auto) 0.1 10^3/uL (0.0-0.1) 12/09/23 05:42 Absolute Nucleated RBC 0.03 x10^3/uL 12/09/23 05:42 Nucleated RBC % 0.3 /100WBC 12/09/23 05:42 PT 18.4 secs (9.9-12.6) H 12/09/23 05:42 INR 1.7 (0.8-1.2) H 12/09/23 05:42 VBG pH 7.423 (7.31-7.41) H 12/05/23 06:07 Ionized Calcium 1.05 mmol/L (1.15-1.33) L 12/05/23 06:07 Sodium 133 mmol/L (135-145) L 12/09/23 05:42 Potassium 4.5 mmol/L (3.5-4.5) 12/09/23 05:42 Chloride 98 mmol/L (101-111) L 12/09/23 05:42 Carbon Dioxide 27 mmol/L (21-32) 12/09/23 05:42 Anion Gap 8.0 (6-13) 12/09/23 05:42 BUN 53 mg/dL (6-20) H 12/09/23 05:42 Creatinine 1.5 mg/dL (0.6-1.3) H 12/09/23 05:42 Estimated GFR (MDRD) 34 (>89) L 12/09/23 05:42 Glucose 145 mg/dL (74-104) H 12/09/23 05:42 POC Whole Bld Glucose 160 mg/dL (70 - 100) H 12/08/23 20:27 Estimat Average Glucose 171 mg/dL (70-100) H 12/06/23 05:11 Hemoglobin A1c % 7.6 % (4.27-6.07) H 12/06/23 05:11 Calcium 9.0 mg/dL (8.5-10.3) 12/09/23 05:42 Phosphorus 4.3 mg/dL (2.5-5.0) 12/07/23 05:41 Magnesium 1.8 mg/dL (1.7-2.3) 12/07/23 05:41 Total Bilirubin 1.1 mg/dL (0.2-1.0) H 12/05/23 06:07 Direct Bilirubin 0.33 mg/dL (0.03-0.18) H 12/05/23 06:07 AST 44 IU/L (10-42) H 12/05/23 06:07 ALT 35 IU/L (10-60) 12/05/23 06:07 Alkaline Phosphatase 70 IU/L (42-121) 12/05/23 06:07 Troponin I High Sens 14.7 ng/L (2.3-14.8) 12/03/23 11:30 B-Natriuretic Peptide 349 pg/mL (5-100) H 12/03/23 11:30 Total Protein 6.0 g/dL (6.4-8.9) L 12/05/23 06:07 Albumin 3.5 g/dL (3.2-5.5) 12/05/23 06:07 Globulin 2.5 g/dL (2.1-4.2) 12/05/23 06:07 Albumin/Globulin Ratio 1.4 (1.0-2.2) 12/03/23 11:30 Lipase 18 U/L (11-82) 12/03/23 11:30 TSH 3.73 uIU/mL (0.34-5.60) 12/03/23 11:38 Nasal Screen MRSA (PCR) NEGATIVE (NEGATIVE) 12/03/23 17:00 Sepsis Event Note (H) - Evaluation Current Stage of Sepsis: Ruled out ABX Reporting Has patient been on IV antibiotics over the past 48 hours?: No
[2023-12-09] MEDS: WARFARIN 5 MG TABLET PO SCH (13:18)
[2023-12-10 06:43] LABS: INR 2.4 (0.8-1.2); PT - PROTHROMBIN TIME 24.8 secs (9.9-12.6)
[2023-12-10 07:13] LABS: CALCIUM 9.1 mg/dL (8.5-10.3); CREATININE 1.5 mg/dL (0.6-1.3); POTASSIUM 4.9 mmol/L (3.5-4.5)
[2023-12-10 07:52] VITALS: BP 106/64; O2SAT 94
[2023-12-10] MEDS: AMIODARONE 200 MG TABLET PO SCH (08:38)
[2023-12-10 10:02] LABS: BASOPHILS # (AUTO) 0.1 10^3/uL (0.0-0.1); BASOPHILS % (AUTO) 0.8 %; EOSINOPHILS # (AUTO) 0.1 10^3/uL (0.0-0.7); EOSINOPHILS % (AUTO) 0.7 %; HCT - HEMATOCRIT 40.3 % (37.0-47.0); HGB - HEMOGLOBIN 13.1 g/dL (12.0-16.0); LYMPHOCYTES # (AUTO) 2.5 10^3/uL (1.5-3.5); LYMPHOCYTES % (AUTO) 22.5 %; MEAN CORPUSCULAR HEMOGLOBIN 28.4 pg (27.0-31.0); MEAN CORPUSCULAR HGB CONC 32.5 g/dL (32.0-36.0); MEAN CORPUSCULAR VOLUME 87.2 fL (81.0-99.0); MEAN PLATELET VOLUME 10.9 fL (7.9-10.8); MONOCYTES # (AUTO) 1.3 10^3/uL (0.0-1.0); MONOCYTES % (AUTO) 11.6 %; NEUTROPHILS # (AUTO) 7.2 10^3/uL (1.5-6.6); NEUTROPHILS % (AUTO) 63.9 %; NRBC ABSOLUTE COUNT (AUTO) 0.03 x10^3/uL; NUCLEATED RED BLOOD CELLS AUTO 0.3 /100WBC; PLT - PLATELET COUNT 289 10^3/uL (130-450); RED BLOOD COUNT 4.62 10^6/uL (4.20-5.40); WHITE BLOOD COUNT 11.2 x10^3/uL (4.8-10.8)
--- NOTE | 2023-12-10 11:25 | Discharge Plan ---
Discharge Plan Problem Reviewed?: Yes Disposition: Home, Self Care Condition: Stable Prescriptions: Warfarin [Coumadin] 2.5 mg PO QPM 14 Days #14 tab Magnesium Oxide [Mag Ox] 400 mg PO DAILYWM 14 Days #14 tab Amiodarone [Pacerone] 200 mg PO DAILY 30 Days #30 tab Metoprolol Succinate [Toprol Xl] 50 mg PO DAILY 30 Days #30 tab Diet: Cardiac Activity Restrictions: Activity as Tolerated Shower Restrictions: No Driving Restrictions: Yes (till your leg wound heals) Assistance Devices: Walker Weight Bearing: Full Weight Instruction Topics: Metoprolol tablets, Heart Failure Meds Control, Heart Failure, Heart Failure Warning Signs, Heart Failure Tracking Weight, Heart Failure Being Active, Heart Failure Diet Changes, Heart Failure Helpful Meds Health Concerns: You have a heart arrhythmia called atrial fibrillation, currently you are on amiodarone and metoprolol to control the heart rate also with taking blood thinner warfarin to prevent stroke. You need to follow-up with your PCP and have cardiology on the case to help further management. You also has peripheral arterial disease. That is the reason you are wound on your feet are not able to heal very well. Please bring the vascular ultrasound study to your primary care, vascular surgical consult / referral is Recommended Your blood sugar has been elevated, meet the criteria for diabetes. However since you are in acute disease phase and alsoDiet is different from your home diet. I am not going to give you diabetes medication please follow-up with the primary care for further check You also been noted with renal function impaired with creatinine 1.5, please hold your Lasix until your kidney function recovers or stable. Please follow-up with your primary care for further management Plan of Treatment: Continue on amiodarone and metoprolol for your A-fib Continue warfarin for stroke prevention Care Goals: Improved cardiac condition Regaining your baseline functional status Assessment: Medically stable for discharge However you need to follow-up with your PCP, Cardiology and vascular surgeon on your service No Smoking: If you smoke, Please STOP! Call for help. Follow-up with: SAM DIAZ PA [Primary Care Provider] -
--- NOTE | 2023-12-10 11:44 | DISCHARGE SUMMARY ---
Discharge Summary Admit Date: 12/03/23 Discharge Date: 12/10/23 Discharging Provider: Jurgen Penn Code Status: Attempt Resuscitation Condition at Discharge: Stable Discharge Disposition: 01 Home, Self Care - DIAGNOSES Admission Diagnoses: Afib rvr Discharge Diagnoses with Status of Each Condition: Afib with RVR, rate controlled Acute on chronic combined systolic and diastolic heart failure, stable Tachycardia induced cardiomegaly, stable EMILY, unchanged PAD with chronic skin wound Diabetes mellitus, - HPI History of Present Illness: A 73 years old female with history of episode of A-fib with RVR on p.o. dilt iazem who presented to the ED for edema, worse in lower bilateral lower extremity Patient had ED visit on 10/02 for dyspnea on exertion for 3 weeks and noted to be in A-fib RVR. She was given metoprolol with improvement and sent home with metoprolol metoprolol and Xarelto which she did not fill due to cost. She states she was concerned that Xarelto will make her vessel pop and instead decided to take aspirin 81 mg twice daily. She return to ED 11/08/2023 for dyspnea on exertion and was again in A-fib with RVR. She responded to diltiazem and was sent home with oral diltiazem. She has been taking p.o. Lasix since then as well. She states the Lasix was not working and she continued to notice progressive weight gain and reports her usual weight is 200 to 225 pounds well at ED her weight was 268 pounds. She states that she has been in denial about heart problem and delayed coming back to the ED. She stopped her Lasix 3 days ago as she developed itchiness red red rash throughout her body which she attributes to the Lasix. She presented 12/02/2022 for worsening edema and worsening shortness of breath. She denied chest pain wheezing abdominal pain nausea vomiting. Patient is admitted for A- fib with RVR on 12/02/2022 - HOSPITAL COURSE Hospital Course: after admission patient was started on diltiazem drip, however did not improve to goal, therefore amiodarone drip was initiated patient was in ICU for monitoring her arrhythmia. With rate controlled amiodarone drip was discontinued on 12/06/2023, transition to oral amiodarone loading dose 12/06, metoprolol was added for rate control. Maintenance dose of amiodarone was started on 12/09/2023. During the rest of her hospital stay her rate has been controlled well on both amiodarone and metoprolol regimen. Patient was started on warfarin for secondary prevention, achieved INR level 2-3 on 12/10/2023. Due to her reports of allergy to Lasix, patient was given IV bumetanide once. Patient reports some improvement with her leg edema, however her creatinine went up to 1.7 from 0.9, diuretic was on hold. Creatinine gradually down to 1.5, however without further improvement. Echo on 12/03/2023 showed ejection fraction of 25 to 30%, which likely secondary to tachyarrhythmia. With heart rate has been controlled, patient reports shortness of breath has been improved overall. Bilateral leg edema severe with chronic unhealing wound on both foot plantar face and cold extremity, ultrasound Doppler showed severe stenosis of femoral artery bilaterally. For the severe PAD patient is recommended to follow-up with vascular surgeon During hospital stay patient was noted elevated blood sugar with multiple fasting blood sugar over 126. Patient meet criteria for DM diagnosis, however would like to try diet control first - ALLERGIES Allergies/Adverse Reactions: Allergies Allergy/AdvReac Type Severity Reaction Status Date / Time banana Allergy Mild Rash Verified 12/03/23 11:09 furosemide [From Lasix] Allergy Rash Verified 12/04/23 14:24 gluten Allergy Rash Verified 12/03/23 11:09 pineapple Allergy Rash Verified 12/03/23 11:09 Sulfa (Sulfonamide Allergy Rash Verified 12/04/23 14:26 Antibiotics) - MEDICATIONS Home Medications: Ambulatory Orders Medication Instructions Recorded Confirmed Amiodarone [Pacerone] 200 mg PO DAILY 30 Days #30 tab 12/10/23 Furosemide [Lasix] 40 mg PO DAILY #0 12/10/23 12/03/23 Magnesium Oxide [Mag Ox] 400 mg PO DAILYWM 14 Days #14 tab 12/10/23 Metoprolol Succinate [Toprol Xl] 50 mg PO DAILY 30 Days #30 tab 12/10/23 Warfarin [Coumadin] 2.5 mg PO QPM 14 Days #14 tab 12/10/23 - PHYSICAL EXAM AT DISCHARGE General Appearance: positive: No acute distress, Alert Eyes Bilateral: positive: PERRL, EOMI ENT: positive: ENT inspection nml Neck: positive: No JVD Respiratory: positive: Chest non-tender Cardiovascular: positive: Other (Irregular rate rhythm, normal rate) Abdomen: positive: Non-tender, Nml bowel sounds Back: positive: Nml inspection Skin: positive: Other (chronic wound on bilateral plantar foot) Extremities: positive: Other (Severe edema) Neurologic/Psychiatric: positive: Oriented x3 - LABS Result Diagrams: 12/10/23 06:18 12/10/23 06:18 - SEPSIS Current Stage of Sepsis: Ruled out - FOLLOW UP Follow Up: PCP appointment on 12/16/2023 Patient agrees to follow-up with cardiology and vascular surgeon - TIME SPENT Time Spent in Discharge (Minutes): 60
[2023-12-10] MEDS ORDERED: WARFARIN 2.5 MG TABLET PO SCH (21:00)
== END 2023-12-10 11:45 | disposition home or self-care (01) | DRG 308 ==
LOC: ED 10:43 → ICU 15:26 → MS2 12-08 19:59
PROVIDERS: ADMIT Internal Medicine; ATTEND Internal Medicine
DX: I50.33 Acute on chronic diastolic (congestive) heart failure (principal); I48.91 Unspecified atrial fibrillation; R21 Rash and other nonspecific skin eruption; I50.43 Acute on chronic combined systolic (congestive) and diastolic (congestive) heart failure; Z68.41 Body mass index [BMI] 40.0-44.9, adult; N17.9 Acute kidney failure, unspecified; T78.40XA Allergy, unspecified, initial encounter; X58.XXXA Exposure to other specified factors, initial encounter; E87.6 Hypokalemia; I42.8 Other cardiomyopathies; T50.2X5A Adverse effect of carbonic-anhydrase inhibitors, benzothiadiazides and other diuretics, initial encounter; E66.01 Morbid (severe) obesity due to excess calories; E11.51 Type 2 diabetes mellitus with diabetic peripheral angiopathy without gangrene; I70.201 Unspecified atherosclerosis of native arteries of extremities, right leg; I70.202 Unspecified atherosclerosis of native arteries of extremities, left leg; I87.8 Other specified disorders of veins; I95.9 Hypotension, unspecified; L27.0 Generalized skin eruption due to drugs and medicaments taken internally; T50.1X5A Adverse effect of loop [high-ceiling] diuretics, initial encounter; E11.621 Type 2 diabetes mellitus with foot ulcer; L97.521 Non-pressure chronic ulcer of other part of left foot limited to breakdown of skin; L97.511 Non-pressure chronic ulcer of other part of right foot limited to breakdown of skin; Z91.141 Patient's other noncompliance with medication regimen due to financial hardship; Z87.891 Personal history of nicotine dependence; Z88.2 Allergy status to sulfonamides
CPT/HCPCS: 36415; 71045; 80048; 80053; 80076; 82330; 83036; 83690; 83735; 83880; 84100; 84443; 84484; 85025; 85610; 87150; 93005; 93307; 93922; 93925; 96365; 96375; 96376; 97161; 97165; 99285; A9270; J0282; J1650

== ENCOUNTER 2023-12-20 09:50 | Outpatient (CLI) | payer MEDICARE ==
[2023-12-20 12:02] LABS: BASOPHILS # (AUTO) 0.1 10^3/uL (0.0-0.1); BASOPHILS % (AUTO) 0.6 %; EOSINOPHILS # (AUTO) 0.1 10^3/uL (0.0-0.7); HCT - HEMATOCRIT 42.6 % (37.0-47.0); HGB - HEMOGLOBIN 13.3 g/dL (12.0-16.0); LYMPHOCYTES # (AUTO) 1.1 10^3/uL (1.5-3.5); LYMPHOCYTES % (AUTO) 14.5 %; MEAN CORPUSCULAR HEMOGLOBIN 27.1 pg (27.0-31.0); MEAN CORPUSCULAR HGB CONC 31.2 g/dL (32.0-36.0); MEAN CORPUSCULAR VOLUME 86.9 fL (81.0-99.0); MEAN PLATELET VOLUME 11.2 fL (7.9-10.8); MONOCYTES # (AUTO) 0.8 10^3/uL (0.0-1.0); MONOCYTES % (AUTO) 10.7 %; NEUTROPHILS # (AUTO) 5.6 10^3/uL (1.5-6.6); NEUTROPHILS % (AUTO) 72.9 %; PLT - PLATELET COUNT 273 10^3/uL (130-450); RED CELL DISTRIBUTION WIDTH 15.6 % (12.0-15.0); WHITE BLOOD COUNT 7.7 x10^3/uL (4.8-10.8)
[2023-12-20 12:26] LABS: ESTIMATED AVERAGE GLUCOSE 183 mg/dL (70-100)
[2023-12-20 12:29] LABS: ALBUMIN 3.8 g/dL (3.2-5.5); ALBUMIN/GLOBULIN RATIO 1.5 (1.0-2.2); ALKALINE PHOSPHATASE 74 IU/L (42-121); ALT ALANINE AMINOTRANSFERASE 32 IU/L (10-60); AST ASPARTATE AMINOTRANSFERASE 20 IU/L (10-42); BILIRUBIN,TOTAL 1.3 mg/dL (0.2-1.0); BUN - BLOOD UREA NITROGEN 28 mg/dL (6-20); CALCIUM 9.3 mg/dL (8.5-10.3); CARBON DIOXIDE - CO2 30 mmol/L (21-32); CHLORIDE 104 mmol/L (101-111); CHOL/HDL RATIO 3.2 (<4.4); CHOLESTEROL 92 mg/dL; GFR - MDRD 54 (>89); GLUCOSE 151 mg/dL (74-104); HDL CHOLESTEROL 29 mg/dL; LDL CHOLESTEROL,CALCULATED 48 mg/dL; LDL/HDL RATIO 1.7 (<4.4); POTASSIUM 4.3 mmol/L (3.5-4.5); SODIUM 140 mmol/L (135-145); TOTAL PROTEIN 6.3 g/dL (6.4-8.9); TRIGLYCERIDES 77 mg/dL (48-352); VLDL CHOLESTEROL 15 mg/dL
[2023-12-20 12:36] LABS: THYROID STIMULATING HORMONE 6.96 uIU/mL (0.34-5.60)
[2023-12-20 13:01] LABS: INR 1.6 (0.8-1.2); PT - PROTHROMBIN TIME 16.9 secs (9.9-12.6)
== END 2023-12-20 09:51 | disposition home or self-care (01) ==
LOC: LAB.N 09:50
PROVIDERS: ATTEND Family Medicine
DX: I77.9 Disorder of arteries and arterioles, unspecified (principal); I50.22 Chronic systolic (congestive) heart failure; I48.91 Unspecified atrial fibrillation
CPT/HCPCS: 36415; 80053; 80061; 83036; 83721; 83880; 84439; 84443; 85025; 85610

== ENCOUNTER 2023-12-27 08:00 | Outpatient (CLI) | payer MEDICARE | END 2023-12-27 08:01 | disposition home or self-care (01) | LOC: LAB.N 08:00 | PROVIDERS: ATTEND Family Medicine | DX: I48.91 Unspecified atrial fibrillation (principal); Z79.01 Long term (current) use of anticoagulants ==

== ENCOUNTER 2024-01-03 08:00 | Outpatient (CLI) | payer MEDICARE | END 2024-01-03 08:01 | disposition home or self-care (01) | LOC: LAB.WCP 08:00 | PROVIDERS: ATTEND Family Medicine | DX: Z79.01 Long term (current) use of anticoagulants (principal); I48.91 Unspecified atrial fibrillation ==

== ENCOUNTER 2024-01-05 11:02 | Emergency (ER) | payer MEDICARE ==
[2024-01-05 12:27] LABS: BASOPHILS % (AUTO) 0.5 %; EOSINOPHILS # (AUTO) 0.4 10^3/uL (0.0-0.7); EOSINOPHILS % (AUTO) 5.3 %; HCT - HEMATOCRIT 44.2 % (37.0-47.0); HGB - HEMOGLOBIN 13.9 g/dL (12.0-16.0); LYMPHOCYTES % (AUTO) 12.4 %; MEAN CORPUSCULAR HEMOGLOBIN 26.3 pg (27.0-31.0); MEAN CORPUSCULAR HGB CONC 31.4 g/dL (32.0-36.0); MEAN CORPUSCULAR VOLUME 83.6 fL (81.0-99.0); MEAN PLATELET VOLUME 10.9 fL (7.9-10.8); MONOCYTES # (AUTO) 0.9 10^3/uL (0.0-1.0); MONOCYTES % (AUTO) 10.9 %; NEUTROPHILS # (AUTO) 5.8 10^3/uL (1.5-6.6); NEUTROPHILS % (AUTO) 70.7 %; PLT - PLATELET COUNT 265 10^3/uL (130-450); RED BLOOD COUNT 5.29 10^6/uL (4.20-5.40); RED CELL DISTRIBUTION WIDTH 16.3 % (12.0-15.0); WHITE BLOOD COUNT 8.1 x10^3/uL (4.8-10.8)
[2024-01-05 12:38] LABS: ALBUMIN 3.8 g/dL (3.2-5.5); ALBUMIN/GLOBULIN RATIO 1.2 (1.0-2.2); BILIRUBIN,TOTAL 1.2 mg/dL (0.2-1.0); CALCIUM 9.2 mg/dL (8.5-10.3); CREATININE 1.1 mg/dL (0.6-1.3); MAGNESIUM 1.5 mg/dL (1.7-2.3); POTASSIUM 3.5 mmol/L (3.5-4.5)
--- NOTE | 2024-01-05 13:02 | XRAY Report ---
PROCEDURE: Foot 1-2V BL INDICATIONS: r/o osteo TECHNIQUE: 3 views of the foot were acquired. COMPARISON: None. FINDINGS: Bones: No fractures or dislocations. Moderate to severe right foot osteoarthritic changes are seen m ost notably right first MTP joint. Mild to moderate osteoarthritic changes throughout left foot most notably involving left first MTP joint. Dorsal marginal osteophyte formation at right first MTP joint is seen concerning for hallux limitus. No gross bony erosive changes are noted. No suspicious bony l esions. Soft tissues: Soft tissue swelling over dorsum of bilateral feet is seen. No tibiotalar joint effusi on. Achilles tendon appears normal. IMPRESSION: Soft tissue swelling and edema over dorsal aspect of bilateral feet. 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 No radiographic evidence of osteomyelitis. No acute fracture or dislocation. Reviewed by: Milad Wasserman MD on 01/05/2024 1:00 PM PDT Approved by: Milad Wasserman MD on 01/05/2024 1:00 PM PDT Station ID: [id number]
--- NOTE | 2024-01-05 13:57 | ED Physician Documentation ---
History of Present Illness - Stated complaint Stated Complaint: SWELLING - Chief complaint Chief Complaint: Cardiac - Additonal information Additional information: 73-year-old female with type 2 diabetes presents emergency department for bila teral lower extremity swelling and weeping edema. She is having new worsening left lower extremity pain and swelling that is very hot and tender to the touch. She is prescribed Keflex by her primary care provider but has not started it yet. She has chronic ulcers on both bilateral lower extremities, she denies any recent fevers or chills no nausea or vomiting. She says that she takes Bumex for diuretics to help with her lower extremity swelling. PD PAST MEDICAL HISTORY - Past Medical History Cardiovascular: Congestive heart failure, Atrial fibrillation Respiratory: None Neuro: None Endocrine/Autoimmune: Type 2 diabetes GI: None MANAGER CASE MANAGEMENT: None : None HEENT: None Psych: None Musculoskeletal: Osteoporosis Derm: None - Past Surgical History Past Surgical History: Yes Ortho: Hip replacement /MANAGER CASE MANAGEMENT: Hysterectomy - Present Medications Home Medications: Ambulatory Orders Medication Instructions Recorded Confirmed Metoprolol Succinate [Toprol Xl] 50 mg PO DAILY 30 Days #30 tab 12/10/23 01/05/24 Warfarin [Coumadin] 2.5 mg PO QPM 14 Days #14 tab 12/10/23 01/05/24 Amiodarone [Pacerone] 200 mg PO DAILY 01/05/24 01/05/24 Bumetanide 0.5 mg PO DAILY 01/05/24 01/05/24 Levothyroxine Sodium 50 mcg PO DAILY 01/05/24 01/05/24 Lisinopril [Zestril] 5 mg PO DAILY 01/05/24 01/05/24 Spironolactone [Aldactone] 25 mg PO DAILY 01/05/24 01/05/24 cephALEXin [Keflex] 500 mg PO Q6H 01/05/24 01/05/24 - Allergies Allergies/Adverse Reactions: Allergies Allergy/AdvReac Type Severity Reaction Status Date / Time banana Allergy Mild Rash Verified 01/05/24 11:28 furosemide [From Lasix] Allergy Rash Verified 01/05/24 11:28 gluten Allergy Rash Verified 01/05/24 11:28 pineapple Allergy Rash Verified 01/05/24 11:28 Sulfa (Sulfonamide Allergy Rash Verified 01/05/24 11:28 Antibiotics) - Social History Does the pt smoke?: No Smoking Status: Never smoker Does the pt drink ETOH?: No Does the pt have substance abuse?: No - Immunizations Immunizations are current?: No - POLST Patient has POLST: No POLST Status: Full Code PD ED PE NORMAL - Vitals Vital signs reviewed: Yes - General General: Alert and oriented X 3, No acute distress, Well developed/nourished - HEENT HEENT: PERRL - Respiratory Respiratory: No respiratory distress - Derm Derm: Other (Of the erythema. Ulcer to the right lower extremity that is about 4 cm in width no purulent drainage. Ulcers to the top of both feet no purulent drainage but serous drainage noted) - Extremities Extremities: Other (3+ Pitting edema to bilateral lower extremities) - Psych Psych: Normal mood, Normal affect Results - Vitals Vitals: Vital Signs - 24 hr 01/05/24 01/05/24 01/05/24 11:23 12:22 13:02 Temperature 36.5 C Heart Rate 83 100 83 Respiratory 16 18 17 Rate Blood Pressure 121/79 100/76 O2 Saturation 99 97 94 01/05/24 14:20 Temperature Heart Rate 82 Respiratory 17 Rate Blood Pressure 98/84 H O2 Saturation 95 Oxygen O2 Source Room air - Labs Labs: Laboratory Tests 01/05/24 01/05/24 01/05/24 12:19 12:19 12:19 WBC 8.1 RBC 5.29 Hgb 13.9 Hct 44.2 MCV 83.6 MCH 26.3 L MCHC 31.4 L RDW 16.3 H Plt Count 265 MPV 10.9 H Neut # (Auto) 5.8 Lymph # (Auto) 1.0 L [place] # (Auto) 0.9 Eos # (Auto) 0.4 Baso # (Auto) 0.0 Absolute Nucleated RBC 0.00 Nucleated RBC % 0.0 Sodium 137 Potassium 3.5 Chloride 100 L Carbon Dioxide 29 Anion Gap 8.0 BUN 30 H Creatinine 1.1 Estimated GFR (MDRD) 49 L Glucose 133 H Calcium 9.2 Magnesium 1.5 L Total Bilirubin 1.2 H AST 19 ALT 17 Alkaline Phosphatase 71 B-Natriuretic Peptide 493 H Total Protein 7.0 Albumin 3.8 Globulin 3.2 Albumin/Globulin Ratio 1.2 Lipase 18 - Rads (name of study) Bilateral feet x-rays Relevant Findings:: Final report received, EMP independent interpretation of test, Other (No osteomyelitis she does appear to have some soft tissue swelling over the dorsal aspect of both feet right worse than left) PD Medical Decision Making - ED course ED course: 73-year-old female presents emergency department for bilateral lower extremity swelling. Labs are complete she does not have any leukocytosis, CMP does reveal what is most likely chronic kidney disease, GFR 49, on my chart review she has actually been historically found to be in the 30s. I believe that her type 2 diabetes is overall probably pretty poorly controlled as her A1c in December of this year was found to be 8.0. BNP slightly elevated at 493 again this is actually significant improvement on BNP was found to be 994. She is on Bumex for diuretics.. Bilateral feet x-rays were complete for concerns of osteo myelitis and I am not seeing any obvious signs of osteomyelitis at this point in time as well as no abnormal labs or vitals to indicate this. She has had no recent fevers or chills. I believe that she is experiencing case of cellulitis of the left lower extremity given the demarcation of the erythema that she presents with as well as the hypersensitivity to light touch. She already has a prescription for Keflex she was told to start taking this as soon as possible and she said that s he is already picked up this medication. She is told to follow-up with her primary care provider for referral to the wound care clinic she is already got an appointment established with vascular surgery as well as podiatry outpatient for her venous insufficiency. At this point in time I believe that she is safe for discharge as she has not trialed any antibiotics outpatient she was given return precautions all questions answered. Prior to discharge the patient's wounds were cleansed with water and Hibiclens bilateral lower extremities were dried and dressings were changed a Telfa and loose netting was placed to keep the dressing in place. Departure - Departure Disposition: 01 Home, Self Care Clinical Impression: Cellulitis of left lower extremity, Diabetes mellitus Instructions: ED Infec Skin Cellulitis Comments: Thank you for trusting us with your care, we have evaluated you for your bilateral lower extremity swelling and left lower extremity pain. I believe that you are experiencing symptoms of cellulitis on your left lower extremity. You have already been prescribed the appropriate antibiotic for this and I want you to start taking this today as prescribed. We have completed x-rays of both feet and do not see any bone infection. Please come back to the emergency department if you have taken full course of antibiotics for 48 hours and you are seeing no improvement or pain is getting any worse. Please book with your [facility] care provider to see if you are able to get in with the wound care clinic to help with your feet dressings and call podiatry to see if they are able to schedule them in for any sooner. If you are able to wash her feet with soap and water at least once a day pat dry them with clean towel and keep those wounds on the both of your feet from getting any worse with a clean dressing daily such as nonadhesive gauze. Forms: PCP List Discharge Date/Time: 01/05/24 14:48
[2024-01-05 14:27] VITALS: BP 98/84; O2SAT 95
== END 2024-01-05 14:48 | disposition home or self-care (01) ==
LOC: ED 11:02
DX: L03.116 Cellulitis of left lower limb (principal); E11.9 Type 2 diabetes mellitus without complications; I50.9 Heart failure, unspecified; I48.91 Unspecified atrial fibrillation; Z79.899 Other long term (current) drug therapy; Z79.01 Long term (current) use of anticoagulants
CPT/HCPCS: 36415; 80053; 83690; 83735; 83880; 85025; 99284

== ENCOUNTER 2024-01-08 08:18 | Inpatient (IN) | payer MEDICARE ==
--- NOTE | 2024-01-08 08:47 | ED Physician Documentation ---
History of Present Illness - Stated complaint Stated Complaint: LEG SWELLING - Chief complaint Chief Complaint: General - History obtained from History obtained from: Patient - History of Present Illness Timing: How many weeks ago (1) - Additonal information Additional information: Katrina Solitario is a 73-year-old female with a history of congestive heart failure . She has had some increase in the swelling of her lower extremities and she has developed some weeping and erythema about 1 week ago 4 days ago she was placed on Keflex for treatment of cellulitis. Despite this she has Progression of symptoms of pain and redness. Redness extends up to the mid thigh on the right. She has not had fever associated with this. She believes overall her congestive heart failure is managed adequately currently. She is not having excessive shortness of breath. Review of Systems Constitutional: denies: Fever Eyes: denies: Decreased vision Ears: denies: Ear pain Nose: denies: Rhinorrhea / runny nose, Congestion Throat: denies: Sore throat Cardiac: denies: Chest pain / pressure, Palpitations Respiratory: reports: Dyspnea (similar to always). denies: Cough, Wheezing GI: denies: Abdominal Pain, Nausea, Vomiting, Constipation, Diarrhea : denies: Dysuria, Frequency Skin: denies: Rash Musculoskeletal: reports: Extremity pain, Extremity swelling. denies: Neck pain, Back pain Neurologic: denies: Generalized weakness, Focal weakness, Numbness PD PAST MEDICAL HISTORY - Past Medical History Past Medical History: Yes Cardiovascular: Congestive heart failure, Atrial fibrillation Respiratory: None Neuro: None Endocrine/Autoimmune: Type 2 diabetes GI: None PASSENGER REPRESENTATIVE: None : None HEENT: None Psych: None Musculoskeletal: Osteoporosis Derm: None - Past Surgical History Past Surgical History: Yes Ortho: Hip replacement /PASSENGER REPRESENTATIVE: Hysterectomy - Present Medications Home Medications: Ambulatory Orders Medication Instructions Recorded Confirmed Metoprolol Succinate [Toprol Xl] 50 mg PO DAILY 30 Days #30 tab 12/10/23 01/08/24 Warfarin [Coumadin] 2.5 mg PO QPM 14 Days #14 tab 12/10/23 01/08/24 Amiodarone [Pacerone] 200 mg PO DAILY 01/05/24 01/08/24 Bumetanide 0.5 mg PO DAILY 01/05/24 01/08/24 Levothyroxine Sodium 50 mcg PO DAILY 01/05/24 01/08/24 Lisinopril [Zestril] 5 mg PO DAILY 01/05/24 01/08/24 Spironolactone [Aldactone] 25 mg PO DAILY 01/05/24 01/08/24 cephALEXin [Keflex] 500 mg PO Q6H 01/05/24 01/08/24 - Allergies Allergies/Adverse Reactions: Allergies Allergy/AdvReac Type Severity Reaction Status Date / Time banana Allergy Mild Rash Verified 01/08/24 08:31 furosemide [From Lasix] Allergy Rash Verified 01/08/24 08:31 gluten Allergy Rash Verified 01/08/24 08:31 pineapple Allergy Rash Verified 01/08/24 08:31 Sulfa (Sulfonamide Allergy Rash Verified 01/08/24 08:31 Antibiotics) - Social History Does the pt smoke?: No Smoking Status: Never smoker Does the pt drink ETOH?: No Does the pt have substance abuse?: No - Immunizations Immunizations are current?: No - POLST Patient has POLST: No POLST Status: Full Code PD ED PE NORMAL - Vitals Vital signs reviewed: Yes (tachy and hypertensive ) - General General: Alert and oriented X 3, No acute distress, Well developed/nourished - HEENT HEENT: Atraumatic, PERRL, EOMI - Neck Neck: Supple, no meningeal sign, No bony TTP - Cardiac Cardiac: RRR, No murmur - Respiratory Respiratory: No respiratory distress, Clear bilaterally - Abdomen Abdomen: Soft, Non tender - Back Back: No CVA TTP, No spinal TTP - Derm Derm: Normal color, Warm and dry - Extremities Extremities: Other (There is peripheral edema bilaterally the feet are bandaged there is erythema to the feet bilaterally extending to the proximal calf and on the right extending to the mid thigh medially. There is some skip areas as well. There is erythema to the left up to the knee.) - Neuro Neuro: Alert and oriented X 3, pmo business analyst 2-12 intact, No motor deficit, No sensory deficit, Normal speech Eye Opening: Spontaneous Motor: Obeys Commands Verbal: Oriented GCS Score: 15 - Psych Psych: Normal mood, Normal affect Results - Vitals Vitals: Vital Signs - 24 hr 01/08/24 08:28 Temperature 36.5 C Heart Rate 106 H Respiratory 20 Rate Blood Pressure 129/106 H O2 Saturation 96 Oxygen O2 Source Room air - Labs Labs: Laboratory Tests 01/08/24 01/08/24 01/08/24 08:58 08:58 08:58 WBC 7.7 RBC 4.74 Hgb 12.6 Hct 39.4 MCV 83.1 MCH 26.6 L MCHC 32.0 RDW 16.6 H Plt Count 262 MPV 11.0 H Neut # (Auto) 5.8 Lymph # (Auto) 0.7 L [place] # (Auto) 0.7 Eos # (Auto) 0.4 Baso # (Auto) 0.0 Absolute Nucleated RBC 0.00 Nucleated RBC % 0.0 PT 22.4 H INR 2.1 H Sodium 133 L Potassium 4.0 Chloride 97 L Carbon Dioxide 29 Anion Gap 7.0 BUN 29 H Creatinine 1.1 Estimated GFR (MDRD) 49 L Glucose 193 H Lactic Acid Calcium 9.1 Total Bilirubin 1.2 H AST 23 ALT 22 Alkaline Phosphatase 70 B-Natriuretic Peptide Total Protein 6.2 L Albumin 3.5 Globulin 2.7 Albumin/Globulin Ratio 1.3 Lipase 15 Urine Color Urine Clarity Urine pH Ur Specific Bath Urine Protein Urine Glucose (UA) Urine Ketones Urine Occult Blood Urine Nitrite Urine Bilirubin Urine Urobilinogen Ur Leukocyte Esterase Ur Microscopic Review Urine Culture Comments 01/08/24 01/08/24 01/08/24 08:58 09:21 10:06 WBC RBC Hgb Hct MCV MCH MCHC RDW Plt Count MPV Neut # (Auto) Lymph # (Auto) [place] # (Auto) Eos # (Auto) Baso # (Auto) Absolute Nucleated RBC Nucleated RBC % PT INR Sodium Potassium Chloride Carbon Dioxide Anion Gap BUN Creatinine Estimated GFR (MDRD) Glucose Lactic Acid 2.0 Calcium Total Bilirubin AST ALT Alkaline Phosphatase B-Natriuretic Peptide 371 H Total Protein Albumin Globulin Albumin/Globulin Ratio Lipase Urine Color YELLOW Urine Clarity CLEAR Urine pH 6.0 Ur Specific [place] <=1.005 Urine Protein NEGATIVE Urine Glucose (UA) NEGATIVE Urine Ketones NEGATIVE Urine Occult Blood NEGATIVE Urine Nitrite NEGATIVE Urine Bilirubin NEGATIVE Urine Urobilinogen 0.2 (NORMAL) Ur Leukocyte Esterase NEGATIVE Ur Microscopic Review NOT INDICATED Urine Culture Comments NOT INDICATED - Rads (name of study) Chest Relevant Findings:: Prelim report reviewed, EMP independent interpretation of test (Cardiomegaly without obvious acute failure) Procedures - IVC sono (time) 0846 Bedside IVC sono: IVC measures (cm) (1.63), Euvolemia PD Medical Decision Making - ED course Complexity details: reviewed old records, reviewed results, re-evaluated patient, considered differential, d/w patient Reviewed Lab Results: We reviewed a complete blood count showing normal white blood cell count, normal hemoglobin, hematocrit and platelets. Differential was unremarkable. INR of 2.1 chemistries show elevated BUN at 29 creatinine normal at 1.1 serum sodium mildly low at 133. Glucose elevated at 193 liver functions normal BNP is elevated at 371. These laboratory results are reassuring and that there is no elevation in the white blood cell count with the infection that is present on examination. They indicate adequate anticoagulation for this patient with afib and the BNP is the best the patient has had since we began measuring them. This is consistent with adequate CHF management and with the findings on POCUS with a 1.63cm IVC ( representing euvolemia) The elevation in the BUN is chronic and likely represents diuretic use. ED course: 73-year-old female compromised by congestive heart failure has lower extremity swelling and cellulitis that is not responding to Keflex.She has been on outpatient management for 4 days with progression of symptoms. Admission to the hospital for failure of outpatient management of cellulitis is indicated. Departure - Departure Disposition: [facility] DC/Xfer Clinical Impression: Cellulitis Qualifiers: Site of cellulitis: extremity Site of cellulitis of extremity: lower extremity Laterality: unspecified laterality Qualified Code(s): L03.119 - Cellulitis of unspecified part of limb Condition: Stable Forms: PCP List
[2024-01-08 09:08] LABS: BASOPHILS % (AUTO) 0.4 %; EOSINOPHILS # (AUTO) 0.4 10^3/uL (0.0-0.7); EOSINOPHILS % (AUTO) 5.6 %; HCT - HEMATOCRIT 39.4 % (37.0-47.0); HGB - HEMOGLOBIN 12.6 g/dL (12.0-16.0); LYMPHOCYTES # (AUTO) 0.7 10^3/uL (1.5-3.5); MEAN CORPUSCULAR HEMOGLOBIN 26.6 pg (27.0-31.0); MEAN CORPUSCULAR VOLUME 83.1 fL (81.0-99.0); MONOCYTES # (AUTO) 0.7 10^3/uL (0.0-1.0); MONOCYTES % (AUTO) 9.6 %; NEUTROPHILS # (AUTO) 5.8 10^3/uL (1.5-6.6); NEUTROPHILS % (AUTO) 75.1 %; PLT - PLATELET COUNT 262 10^3/uL (130-450); RED BLOOD COUNT 4.74 10^6/uL (4.20-5.40); RED CELL DISTRIBUTION WIDTH 16.6 % (12.0-15.0); WHITE BLOOD COUNT 7.7 x10^3/uL (4.8-10.8)
[2024-01-08 09:13] LABS: INR 2.1 (0.8-1.2); PT - PROTHROMBIN TIME 22.4 secs (9.9-12.6)
[2024-01-08 09:25] LABS: ALBUMIN 3.5 g/dL (3.2-5.5); ALBUMIN/GLOBULIN RATIO 1.3 (1.0-2.2); BILIRUBIN,TOTAL 1.2 mg/dL (0.2-1.0); CALCIUM 9.1 mg/dL (8.5-10.3); CREATININE 1.1 mg/dL (0.6-1.3); TOTAL PROTEIN 6.2 g/dL (6.4-8.9)
--- NOTE | 2024-01-08 09:52 | XRAY Report ---
PROCEDURE: Chest 1V INDICATIONS: Short of breath TECHNIQUE: One view of the chest was acquired. COMPARISON: 12/03/2023 FINDINGS: Surgical changes and devices: None. Lungs and pleura: Small right pleural effusion has improved from the prior Mediastinum: Mediastinal contours appear normal. Heart size is enlarged. Mild vascular congestion Bones and chest wall: No suspicious bony lesions. Overlying soft tissues appear unremarkable. IMPRESSION: Improving small right pleural effusion. Stable cardiomegaly and mild vascular congestion. Reviewed by: Misha Kaminski MD on 01/08/2024 8:51 AM ALBA Approved by: Misha Kaminski MD on 01/08/2024 8:51 AM AKALEX Station ID: [id number]
[2024-01-08 10:13] LABS: BILIRUBIN,URINE NEGATIVE (NEGATIVE); GLUCOSE, URINE (UA) NEGATIVE (NEGATIVE); KETONES,URINE (UA) NEGATIVE (NEGATIVE); LEUKOCYTE ESTERASE, URINE NEGATIVE (NEGATIVE); NITRITE,URINE NEGATIVE (NEGATIVE); OCCULT BLOOD,URINE NEGATIVE (NEGATIVE); PROTEIN,URINE NEGATIVE (NEGATIVE); UROBILINOGEN,URINE 0.2 (NORMAL) E.U./dL (NORMAL)
[2024-01-08 10:14] LABS: CLARITY,URINE CLEAR (CLEAR)
[2024-01-08] MEDS ORDERED: ONDANSETRON ODT 4 MG TABLET TL PRN (11:20)
[2024-01-08] MEDS ORDERED: ONDANSETRON 4 MG/2 ML VIAL IVP PRN (11:20)
[2024-01-08] MEDS: HYDROcod/ACETAM 5/325 MG TABLET PO PRN (12:54)
--- NOTE | 2024-01-08 13:17 | HISTORY & PHYSICAL EXAMINATION ---
Chief Complaint - Chief Complaint Chief Complaint: Lower extremity wounds History of Present Illness - Admitted From Admitted From:: ED - History Obtained From Records Reviewed: Yes History obtained from: Patient, EMR Exam Limitations: None - History of Present Illness HPI Comment/Other: Patient is a 73-year-old female the past medical history of atrial fibrillation, heart failure with reduced ejection fraction, peripheral vascular disease with chronic ischemic ulcers, type 2 diabetes, hyperlipidemia, hypertension, hypot hyroidism who presented to the ED due to progressive worsening of her chronic ulceration. Patient was admitted earlier in December where she underwent vascular studies showing hemodynamically significant stenosis in the distal right superficial femoral artery and left mid distal superficial femoral artery. During that hospitalization she was recommended to see vascular surgeon who she will be seeing on January 27. Patient reports that her ulcers have worsened since this visit. She is able to ambulate but reports that it is painful. She was instructed to go to the ED if her ulceration worsened by her PCP. During my evaluation her ulcers appear to be weeping. She denies any chest pain or shortness of breath. No fevers or chills. She does have pain in her legs but it is worse upon walking. History - Past Medical History Cardiovascular: reports: Congestive heart failure, Atrial fibrillation Respiratory: reports: None Neuro: reports: None Endocrine/Autoimmune: reports: Type 2 diabetes GI: reports: None PERSONAL COMPUTER SPECIALIST: reports: None : reports: None HEENT: reports: None Psych: reports: None Musculoskeletal: reports: Osteoporosis Derm: reports: None MRSA Hx?: No - Past Surgical History Ortho: reports: Hip replacement /PERSONAL COMPUTER SPECIALIST: reports: Hysterectomy - Family & Social History Family History Comment/Other: father with mitral valve dysfunction Living Situation: Alone Social History Notes: Has a walker at home but often does not need to use it - Substance History Use: Uses substance without health or social issues: Tobacco - POLST Patient has POLST: No POLST Status: Full Code Meds/Allgy - Home Medications Home Medications: Ambulatory Orders Medication Instructions Recorded Confirmed Metoprolol Succinate [Toprol Xl] 50 mg PO DAILY 30 Days #30 tab 12/10/23 01/08/24 Warfarin [Coumadin] 2.5 mg PO QPM 14 Days #14 tab 12/10/23 01/08/24 Amiodarone [Pacerone] 200 mg PO DAILY 01/05/24 01/08/24 Bumetanide 0.5 mg PO DAILY 01/05/24 01/08/24 Levothyroxine Sodium 50 mcg PO DAILY 01/05/24 01/08/24 Lisinopril [Zestril] 5 mg PO DAILY 01/05/24 01/08/24 Spironolactone [Aldactone] 25 mg PO DAILY 01/05/24 01/08/24 cephALEXin [Keflex] 500 mg PO Q6H 01/05/24 01/08/24 - Allergies Allergies/Adverse Reactions: Allergies Allergy/AdvReac Type Severity Reaction Status Date / Time banana Allergy Mild Rash Verified 01/08/24 08:31 furosemide [From Lasix] Allergy Rash Verified 01/08/24 08:31 gluten Allergy Rash Verified 01/08/24 08:31 pineapple Allergy Rash Verified 01/08/24 08:31 Sulfa (Sulfonamide Allergy Rash Verified 01/08/24 08:31 Antibiotics) Review of Systems - All Other Systems All Other Systems: reports: Reviewed and negative Prior Level of Functionality: Independent with ADLs at home. Exam - Vital Signs Reviewed Vital Signs: Yes Vital Signs: Vital Signs x48h Temp Pulse Pulse Resp BP BP Pulse Ox 01/08/24 12:41 36.6 C 103 H 17 160/80 H 100 01/08/24 10:31 86 16 103/65 98 01/08/24 08:28 36.5 C 106 H 20 129/106 H 96 - Physical Exam General Appearance: positive: No acute distress, Alert Respiratory: positive: Chest non-tender, No respiratory distress, Breath sounds nml Cardiovascular: positive: Regular rate & rhythm, No murmur, No gallop Abdomen: positive: Non-tender, No organomegaly, Nml bowel sounds, No distention Skin: positive: Warm, Other (Several wounds present. Most prominently on medial malleolus of left leg. Appear to be ischemic ulcers.). negative: Color nml, No rash, Dry Conclusion/Plan - Problem List (1) PAD (peripheral artery disease) Conclusion/Plan: --Peripheral vascular disease diagnosed with previous ultrasound. We will obtain a CT scan with runoff to evaluate further. She does have a vascular surgery appointment on January 27 in [place]. --Started on IV vancomycin and ceftriaxone. Wound culture is pending. --Continue warfarin. INR goal should be 2-3. She was previously on Eliquis but could not afford it. --Does not appear to be on an antiplatelet or statin. Will start on aspirin 81 mg and obtain a lipid panel in the morning. (2) Congestive heart failure Conclusion/Plan: --Recent TTE showing reduced LVEF under 35%. --Continue home Bumex, metoprolol, spironolactone. If blood pressures remain elevated I will start her on an ARB. --Not in an acute exacerbation. (3) Diabetes mellitus Conclusion/Plan: --A1c pending for a.m. --Started on sliding scale insulin. Qualifiers: Diabetes mellitus type: type 2 Diabetes mellitus custodial insulin use: without terminal gauger supervisor use Diabetes mellitus complication status: with skin complications (4) Hypothyroid Conclusion/Plan: --Continue home levothyroxine. (5) Atrial fibrillation Conclusion/Plan: --Continue amiodarone and metoprolol. She is on warfarin for stroke prevention. 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 - Lab Results Fish Bones: 01/08/24 08:58 01/08/24 08:58
[2024-01-08] MEDS ORDERED: iohexoL-300 150 ML BOTTLE ONE (13:22)
--- NOTE | 2024-01-08 13:22 | PHARMACY PROGRESS NOTE ---
- Therapy Status Therapy status: Awaiting steady state Basis for treatment: Empirical Treatment indication: Cellulitis, failed outpatient therapy Trough goal: AUC/CATY 400-600 Concurrent antibiotics: CTX - EMILY Risk Risk level for Acute Kidney Injury: High Acute Kidney Injury risk factors: Baseline CrCl <50, Wt >100kg or BMI >40, Baseline BUN:SCr >20:1 - Monitoring and Recommendation Clinical response to treatment: Lab Results 01/08/24 08:58 BUN 29 H Creatinine 1.1 Estimated GFR (MDRD) 49 L Monitoring plan: Daily serum creatinine Areas for additional monitoring: IV to PO when appropriate, Therapy de- escalation based on culture results Pharmacy recommendation: Continue current regime (Initiate vanco 2 g IV q24h for estimated AUC/CATY of 582)
[2024-01-08] MEDS: ASPIRIN EC 81 MG TABLET PO SCH (13:52)
[2024-01-08] MEDS: cefTRIAXone 1 GM in SODIUM CHLORIDE 0.9% MINIBAG 100 ML IV SCH (13:53)
--- NOTE | 2024-01-08 14:00 | PHARMACY PROGRESS NOTE ---
- Best Possible Medication History Admit Date and Time: 01/08/24 1120 Processed by: Pharmacy Medications reviewed in ED?: Yes Medication History completed: Yes Secondary Source(s): Physician records, Pharmacy records As the person ultimately responsible for medication therapy, providers are able to order a medication from an existing home medication list in [facility] via the "Reconcile Routine" prior to Confirmation of that medication by marketing support assistant. Such practice is discouraged except when the physician, in their clinical judgment, deems that a medical need exists for a medication without regard to previous use.
[2024-01-08] MEDS: iohexoL-300 150 ML BOTTLE IVP ONE (14:57)
[2024-01-08] MEDS: VANCOMYCIN INJ 2 GM in SODIUM CHLORIDE 0.9% 500 ML IV SCH (15:04)
[2024-01-08] MEDS: SODIUM CHLORIDE FLUSH 0.9% 10 ML SYRINGE IVP PRN (15:04)
--- NOTE | 2024-01-08 15:53 | CT Report ---
PROCEDURE: Angio Abdomen Runoff BL INDICATIONS: r/o critical stenosis of LE, limb ischemia CONTRAST: 125ml Omni 300 TECHNIQUE: After the administration of intravenous contrast, a CT scan of the abdomen, pelvis and lower extremit ies (to the feet) was performed. Images were recorded and evaluated at appropriate window settings. R eformats: coronal and sagittal. 3-D series surface volume rendering was obtained. For radiation dose reduction, the following was used: automated exposure control, adjustment of mA and/or kV according t o patient size. COMPARISON: None. FINDINGS: Image quality: Excellent. Abdominal aorta: No evidence of acute aortic syndrome. No significant aneurysm. No significant ather osclerotic disease. Right lower extremity: Common iliac artery: No significant atherosclerotic disease. External iliac artery: No significant atherosclerotic disease. Common femoral artery: No significant atherosclerotic disease. Superficial femoral artery: No significant atherosclerotic disease. Popliteal artery: Atherosclerotic vascular calcification and distal popliteal artery with stenosis. Three-vessel runoff is diminutive. Several collateral vessels noted. Dorsalis pedis appears patent. Left lower extremity: Right lower extremity: Common iliac artery: No significant atherosclerotic disease. External iliac artery: No significant atherosclerotic disease. Common femoral artery: No significant atherosclerotic disease. Superficial femoral artery: No significant atherosclerotic disease. Popliteal artery: No significant atherosclerotic disease. Three-vessel runoff in the calf and again is thready in diminutive. Nevertheless, the dorsalis pedis appears patent OTHER: Visualized arterial phase abdominal pelvic organs unremarkable. Cholelithiasis without acute cholecys titis. Right inguinal adenopathy measures up to 1.7 x 2.8 cm. The left total hip arthroplasty. Modera te right pleural effusion heart size is enlarged. IMPRESSION: 1. No significant stenosis to the popliteal vessels bilaterally. The vessels in the calf are quite di minutive and thready with atherosclerotic vascular calcification. Both the dorsalis pedis arteries ap pear patent. 2. Cardiomegaly. Moderate right pleural effusion. Cholelithiasis. Reviewed by: Misha Kaminski MD on 01/08/2024 2:51 PM AKDT Approved by: Misha Kaminski MD on 01/08/2024 2:51 PM AKDT Station ID: [id number]
[2024-01-08] MEDS: SODIUM CHLORIDE FLUSH 0.9% 10 ML SYRINGE IVP SCH (16:40)
[2024-01-08] MEDS: INSULIN LISPRO 300 UNIT/3 ML PEN SUBQ SCH (17:11)
[2024-01-08] MEDS: WARFARIN 2.5 MG TABLET PO SCH (21:50)
[2024-01-08] MEDS: ATORVASTATIN 40 MG TABLET PO SCH (21:50)
[2024-01-08] MEDS: BACITRACIN ZINC OINT 1 PACKET TOP PRN (21:54)
[2024-01-09 05:26] LABS: BASOPHILS % (AUTO) 0.1 %; EOSINOPHILS # (AUTO) 0.5 10^3/uL (0.0-0.7); EOSINOPHILS % (AUTO) 7.3 %; HCT - HEMATOCRIT 36.5 % (37.0-47.0); HGB - HEMOGLOBIN 11.8 g/dL (12.0-16.0); LYMPHOCYTES % (AUTO) 14.8 %; MEAN CORPUSCULAR HEMOGLOBIN 26.5 pg (27.0-31.0); MEAN CORPUSCULAR HGB CONC 32.3 g/dL (32.0-36.0); MEAN CORPUSCULAR VOLUME 81.8 fL (81.0-99.0); MONOCYTES # (AUTO) 0.9 10^3/uL (0.0-1.0); MONOCYTES % (AUTO) 13.9 %; NEUTROPHILS # (AUTO) 4.3 10^3/uL (1.5-6.6); NEUTROPHILS % (AUTO) 63.5 %; PLT - PLATELET COUNT 219 10^3/uL (130-450); RED BLOOD COUNT 4.46 10^6/uL (4.20-5.40); RED CELL DISTRIBUTION WIDTH 16.5 % (12.0-15.0); WHITE BLOOD COUNT 6.7 x10^3/uL (4.8-10.8)
[2024-01-09 05:45] LABS: CHOL/HDL RATIO 3.2 (<4.4); CHOLESTEROL 90 mg/dL; HDL CHOLESTEROL 28 mg/dL; LDL CHOLESTEROL,CALCULATED 44 mg/dL; LDL/HDL RATIO 1.6 (<4.4); TRIGLYCERIDES 90 mg/dL (48-352); VLDL CHOLESTEROL 18 mg/dL
[2024-01-09 05:46] LABS: INR 2.1 (0.8-1.2); PT - PROTHROMBIN TIME 21.9 secs (9.9-12.6)
[2024-01-09 05:47] LABS: BILIRUBIN,DIRECT 0.3 mg/dL (0.03-0.18); CALCIUM 8.5 mg/dL (8.5-10.3); POTASSIUM 4.5 mmol/L (3.5-4.5); TOTAL PROTEIN 5.5 g/dL (6.4-8.9)
[2024-01-09] MEDS: LEVOTHYROXINE 25 MCG TABLET PO SCH (06:04)
[2024-01-09] MEDS ORDERED: ENOXAPARIN 40 MG/0.4 ML SYRINGE SUBQ SCH (09:00)
[2024-01-09] MEDS: SPIRONOLACTONE 25 MG TABLET PO SCH (10:13)
[2024-01-09] MEDS: BUMETANIDE 1 MG TABLET PO SCH (10:13)
[2024-01-09] MEDS: AMIODARONE 200 MG TABLET PO SCH (10:14)
[2024-01-09] MEDS: METOPROLOL SUCCINATE 50 MG TABLET PO SCH (10:14)
--- NOTE | 2024-01-09 11:21 | PROVIDER PROGRESS NOTE ---
Assessment/Plan - Problem List (1) PAD (peripheral artery disease) Assessment/Plan: (1) PAD (peripheral artery disease) Conclusion/Plan: --Peripheral vascular disease diagnosed with previous ultrasound. CT with runoff does not show any critical stenosis. She does have a vascular surgery appointment on January 27 in [place]. --Started on IV vancomycin and ceftriaxone. Wound culture is pending. --Continue warfarin. INR goal should be 2-3. She was previously on Eliquis but could not afford it. --Does not appear to be on an antiplatelet or statin. Will start on aspirin 81 mg and Atorvastatin 40 mg. --Prior history of smoking but no longer uses tobacco. (2) Congestive heart failure Conclusion/Plan: --Recent TTE showing reduced LVEF under 35%. --Continue home Bumex, metoprolol, spironolactone. If blood pressures remain elevated I will start her on an ARB. --Not in an acute exacerbation. (3) Diabetes mellitus Conclusion/Plan: --A1c pending. --Her PCP has started on glipizide. --Started on sliding scale insulin. Qualifiers: Diabetes mellitus type: type 2 Diabetes mellitus nursing home insulin use: without buttermaker use Diabetes mellitus complication status: with skin complications (4) Hypothyroid Conclusion/Plan: --Continue home levothyroxine. (5) Atrial fibrillation Conclusion/Plan: --Continue amiodarone and metoprolol. She is on warfarin for stroke prevention. 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 Dispo: Anticipate discharge tomorrow. (3) Diabetes mellitus Qualifiers: Diabetes mellitus type: type 2 Diabetes mellitus buttermaker insulin use: w [facility] buttermaker use Diabetes mellitus complication status: with skin com plications - Current Meds Current Meds: Current Medications Generic Name Dose Route Start Last Admin Trade Name Freq PRN Reason Stop Dose Admin Hydrocodone Bitart/Acetaminophen 1 tab 01/08/24 11:20 01/09/24 08:37 Hydrocod/Acetam 5/325 Mg Tablet PO 1 tab Q4HR PRN Administration Pain 5 to 7 Amiodarone HCl 200 mg 01/09/24 09:00 01/09/24 10:14 Amiodarone 200 Mg Tablet PO Not Given DAILY ARPAN Aspirin 81 mg 01/08/24 14:00 01/09/24 08:37 Aspirin Ec 81 Mg Tablet PO 81 mg DAILYWM ARPAN Administration Atorvastatin Calcium 40 mg 01/08/24 21:00 01/08/24 21:50 Atorvastatin 40 Mg Tablet PO 40 mg QPM ARPAN Administration Bacitracin 1 packet 01/08/24 18:14 01/08/24 21:54 Bacitracin Zinc Oint 1 Packet TOP 1 packet PRN PRN Administration Skin Care Bumetanide 0.5 mg 01/09/24 09:00 01/09/24 10:13 Bumetanide 1 Mg Tablet PO Not Given DAILY ARPAN Ceftriaxone Sodium 1 gm/ 100 mls @ 200 mls/hr 01/08/24 14:00 01/09/24 10:11 Sodium Chloride IV Infused DAILY ARPAN Infusion Vancomycin HCl 2 gm/ Sodium 500 mls @ 250 mls/hr 01/08/24 15:00 01/08/24 17:14 Chloride IV Infused Q24H ARPAN Infusion Insulin Human Lispro 1 - 5 unit 01/08/24 17:00 01/09/24 08:39 Insulin Lispro 300 Unit/3 Ml Pen SUBQ Not Given 0800,1200,1700,2100 [facility] Protocol Levothyroxine Sodium 50 mcg 01/09/24 07:00 01/09/24 06:04 Levothyroxine 25 Mcg Tablet PO 50 mcg QDAC ARPAN Administration Metoprolol Succinate 50 mg 01/09/24 09:00 01/09/24 10:14 Metoprolol Succinate 50 Mg Tablet PO Not Given DAILY ARPAN Sodium Chloride 10 ml 01/08/24 11:20 01/08/24 17:11 Sodium Chloride Flush 0.9% 10 Ml Syringe IVP 10 ml PRN PRN Administration NEEDED PER PROVIDER ORDERS Sodium Chloride 10 ml 01/08/24 17:00 01/09/24 10:13 Sodium Chloride Flush 0.9% 10 Ml Syringe IVP 10 ml 0100,0900,1700 ARPAN Administration Spironolactone 25 mg 01/09/24 09:00 01/09/24 10:13 Spironolactone 25 Mg Tablet PO Not Given DAILY [facility] Warfarin Sodium 2.5 mg 01/08/24 21:00 01/08/24 21:50 Warfarin 2.5 Mg Tablet PO 2.5 mg QPM ARPAN Administration - Lab Result Fish Bone Diagrams: 01/09/24 05:09 01/09/24 05:09 - Additional Planning My Orders: My Active Orders 01/08/24 11:20 Activity Orders [RC] Q2HR IO [RC] IOSHIFT Initiate Bowel Care Protocol [RC] .protocol Initiate Line Care Protocol [RC] QSHIFT Initiate Personal Care Protoco [RC] .protocol Oxygen Therapy [RC] .PRN Vital Signs [RC] 0800,1600,0000 Acetaminophen [Tylenol] 650 mg PO Q4HR PRN HYDROcod/ACETAM 5/325 [[place] 5/325] 1 tab PO Q4HR PRN Ondansetron Inj [Zofran Inj] 4 mg IVP Q6HR PRN Ondansetron Odt [Zofran Odt] 4 mg TL Q6HR PRN Sodium Chloride Flush 0.9% [Normal Saline Flush 0.9%] 10 ml IVP PRN PRN Code Status [OTHERS] Routine Condition of Patient [OTHERS] Routine DVT Prophylaxis [OTHERS] Routine 01/08/24 13:03 Blood Glucose Checks - Eating [RC] 0800,1200,1700,2100 Initiate Hypoglycemia Protocol [RC] .protocol 01/08/24 13:33 CUL,WOUND (AEROBIC) [RM] Stat 01/08/24 14:00 Aspirin EC [Ecotrin] 81 mg PO DAILYWM cefTRIAXone [Rocephin] 1 gm Sodium Chloride 0.9% Minibag [Normal Saline 0.9% Minibag] 100 ml IV DAILY 01/08/24 15:00 Vancomycin Inj [Vancomycin] 2 gm Sodium Chloride 0.9% [Normal Saline 0.9%] 500 ml IV Q24H 01/08/24 Dinner Cardiac Diet [DIET] 01/08/24 17:00 Insulin Lispro [Humalog Kwikpen U-100] 1 - 5 unit SUBQ 0800,1200,1700,2100 Sodium Chloride Flush 0.9% [Normal Saline Flush 0.9%] 10 ml IVP 0100,0900,1700 01/08/24 18:14 Bacitracin Zinc Oint [Bacitracin] 1 packet TOP PRN PRN 01/08/24 21:00 Atorvastatin [Lipitor] 40 mg PO QPM Warfarin [Coumadin] 2.5 mg PO QPM 01/09/24 05:09 HEMOGLOBIN A1c% [CHEM] DAILYLAB 01/09/24 07:00 Levothyroxine [Synthroid] 50 mcg PO QDAC 01/09/24 09:00 Amiodarone [Pacerone] 200 mg PO DAILY Bumetanide [Bumex] 0.5 mg PO DAILY Metoprolol Succinate [Toprol Xl] 50 mg PO DAILY Spironolactone [Aldactone] 25 mg PO DAILY 01/10/24 05:00 BMP - BASIC METABOLIC PANEL [CHEM] DAILYLAB CBC [CBC - COMP BLD CT W/AUTO DIFF] [HEME] DAILYLAB PT WITH INR [COAG] DAILYLAB 01/11/24 05:00 BMP - BASIC METABOLIC PANEL [CHEM] DAILYLAB CBC [CBC - COMP BLD CT W/AUTO DIFF] [HEME] DAILYLAB PT WITH INR [COAG] DAILYLAB 01/12/24 05:00 BMP - BASIC METABOLIC PANEL [CHEM] DAILYLAB CBC [CBC - COMP BLD CT W/AUTO DIFF] [HEME] DAILYLAB PT WITH INR [COAG] DAILYLAB 01/13/24 05:00 BMP - BASIC METABOLIC PANEL [CHEM] DAILYLAB CBC [CBC - COMP BLD CT W/AUTO DIFF] [HEME] DAILYLAB PT WITH INR [COAG] DAILYLAB 01/14/24 05:00 PT WITH INR [COAG] DAILYLAB 01/15/24 05:00 PT WITH INR [COAG] DAILYLAB Subjective - Subjective Patient Reports: Feeling Better, Resting Comfortably, No Complaints Objective Vital Signs: Vital Signs - 24 hr 01/08/24 01/08/24 01/08/24 12:41 13:29 15:44 Temperature 36.6 C 36.6 C Heart Rate [ 103 H 91 Brachial] Respiratory 17 17 Rate Blood Pressure 113/64 [Left Brachial artery] Blood Pressure 160/80 H 109/58 L [Right Brachial artery] O2 Saturation 100 96 01/09/24 01/09/24 00:35 07:31 Temperature 36.6 C 36.8 C Heart Rate [ 103 H 95 Brachial] Respiratory 18 16 Rate Blood Pressure 101/57 L [Left Brachial artery] Blood Pressure 104/50 L [Right Brachial artery] O2 Saturation 96 94 Oxygen O2 Source Room air I&O (Last 24 Hrs): Intake and Output Totals x24h 01/07/24 01/08/24 01/09/24 23:59 23:59 23:59 Intake Total 1010 420 Balance 1010 420 General: Alert, Oriented x3, Cooperative Cardiovascular: Regular rate, Normal S1, Normal S2 Respiratory: No respiratory distress, Breath sounds nml Abdomen: Normal bowel sounds, Soft, No tenderness, No hepatospenomegaly, No masses Extremities: Other (Wounds have been dressed.) - Results Results: Laboratory Results WBC 6.7 x10^3/uL (4.8-10.8) 01/09/24 05:09 RBC 4.46 10^6/uL (4.20-5.40) 01/09/24 05:09 Hgb 11.8 g/dL (12.0-16.0) L 01/09/24 05:09 Hct 36.5 % (37.0-47.0) L 01/09/24 05:09 MCV 81.8 fL (81.0-99.0) 01/09/24 05:09 MCH 26.5 pg (27.0-31.0) L 01/09/24 05:09 MCHC 32.3 g/dL (32.0-36.0) 01/09/24 05:09 RDW 16.5 % (12.0-15.0) H 01/09/24 05:09 Plt Count 219 10^3/uL (130-450) 01/09/24 05:09 MPV 11.0 fL (7.9-10.8) H 01/09/24 05:09 Neut # (Auto) 4.3 10^3/uL (1.5-6.6) 01/09/24 05:09 Lymph # (Auto) 1.0 10^3/uL (1.5-3.5) L 01/09/24 05:09 [place] # (Auto) 0.9 10^3/uL (0.0-1.0) 01/09/24 05:09 Eos # (Auto) 0.5 10^3/uL (0.0-0.7) 01/09/24 05:09 Baso # (Auto) 0.0 10^3/uL (0.0-0.1) 01/09/24 05:09 Absolute Nucleated RBC 0.00 x10^3/uL 01/09/24 05:09 Nucleated RBC % 0.0 /100WBC 01/09/24 05:09 PT 21.9 secs (9.9-12.6) H 01/09/24 05:09 INR 2.1 (0.8-1.2) H 01/09/24 05:09 Sodium 134 mmol/L (135-145) L 01/09/24 05:09 Potassium 4.5 mmol/L (3.5-4.5) 01/09/24 05:09 Chloride 100 mmol/L (101-111) L 01/09/24 05:09 Carbon Dioxide 28 mmol/L (21-32) 01/09/24 05:09 Anion Gap 6.0 (6-13) 01/09/24 05:09 BUN 24 mg/dL (6-20) H 01/09/24 05:09 Creatinine 1.0 mg/dL (0.6-1.3) 01/09/24 05:09 Estimated GFR (MDRD) 54 (>89) L 01/09/24 05:09 Glucose 130 mg/dL (74-104) H 01/09/24 05:09 POC Whole Bld Glucose 159 mg/dL (70 - 100) H 01/09/24 11:06 Lactic Acid 2.0 mmol/L (0.5-2.2) 01/08/24 08:58 Calcium 8.5 mg/dL (8.5-10.3) 01/09/24 05:09 Total Bilirubin 1.0 mg/dL (0.2-1.0) 01/09/24 05:09 Direct Bilirubin 0.30 mg/dL (0.03-0.18) H 01/09/24 05:09 AST 18 IU/L (10-42) 01/09/24 05:09 ALT 18 IU/L (10-60) 01/09/24 05:09 Alkaline Phosphatase 58 IU/L (42-121) 01/09/24 05:09 B-Natriuretic Peptide 371 pg/mL (5-100) H 01/08/24 09:21 Total Protein 5.5 g/dL (6.4-8.9) L 01/09/24 05:09 Albumin 3.0 g/dL (3.2-5.5) L 01/09/24 05:09 Globulin 2.5 g/dL (2.1-4.2) 01/09/24 05:09 Albumin/Globulin Ratio 1.3 (1.0-2.2) 01/08/24 08:58 Triglycerides 90 mg/dL (48-352) 01/09/24 05:09 Cholesterol 90 mg/dL (-200) 01/09/24 05:09 LDL Cholesterol, Calc 44 mg/dL (-129) 01/09/24 05:09 VLDL Cholesterol 18 mg/dL 01/09/24 05:09 HDL Cholesterol 28 mg/dL (60-) L 01/09/24 05:09 LDL/HDL Ratio 1.6 (<4.4) 01/09/24 05:09 Cholesterol/HDL Ratio 3.2 (<4.4) 01/09/24 05:09 Lipase 15 U/L (11-82) 01/08/24 08:58 Urine Color YELLOW 01/08/24 10:06 Urine Clarity CLEAR (CLEAR) 01/08/24 10:06 Urine pH 6.0 PH (5.0-7.5) 01/08/24 10:06 Ur Specific [place] <=1.005 (1.002-1.030) 01/08/24 10:06 Urine Protein NEGATIVE mg/dL (NEGATIVE) 01/08/24 10:06 Urine Glucose (UA) NEGATIVE mg/dL (NEGATIVE) 01/08/24 10:06 Urine Ketones NEGATIVE mg/dL (NEGATIVE) 01/08/24 10:06 Urine Occult Blood NEGATIVE (NEGATIVE) 01/08/24 10:06 Urine Nitrite NEGATIVE (NEGATIVE) 01/08/24 10:06 Urine Bilirubin NEGATIVE (NEGATIVE) 01/08/24 10:06 Urine Urobilinogen 0.2 (NORMAL) E.U./dL (NORMAL) 01/08/24 10:06 Ur Leukocyte Esterase NEGATIVE (NEGATIVE) 01/08/24 10:06 Ur Microscopic Review NOT INDICATED 01/08/24 10:06 Urine Culture Comments NOT INDICATED 01/08/24 10:06
[2024-01-09 13:28] LABS: ESTIMATED AVERAGE GLUCOSE 180 mg/dL (70-100); HEMOGLOBIN A1c% 7.9 % (4.27-6.07)
[2024-01-10 05:55] LABS: BASOPHILS % (AUTO) 0.4 %; EOSINOPHILS # (AUTO) 0.5 10^3/uL (0.0-0.7); EOSINOPHILS % (AUTO) 8.4 %; HCT - HEMATOCRIT 35.3 % (37.0-47.0); HGB - HEMOGLOBIN 11.6 g/dL (12.0-16.0); LYMPHOCYTES # (AUTO) 1.2 10^3/uL (1.5-3.5); LYMPHOCYTES % (AUTO) 21.1 %; MEAN CORPUSCULAR HEMOGLOBIN 27.4 pg (27.0-31.0); MEAN CORPUSCULAR HGB CONC 32.9 g/dL (32.0-36.0); MEAN CORPUSCULAR VOLUME 83.3 fL (81.0-99.0); MEAN PLATELET VOLUME 11.4 fL (7.9-10.8); MONOCYTES # (AUTO) 0.7 10^3/uL (0.0-1.0); MONOCYTES % (AUTO) 12.3 %; NEUTROPHILS # (AUTO) 3.2 10^3/uL (1.5-6.6); NEUTROPHILS % (AUTO) 57.4 %; PLT - PLATELET COUNT 205 10^3/uL (130-450); RED BLOOD COUNT 4.24 10^6/uL (4.20-5.40); RED CELL DISTRIBUTION WIDTH 16.8 % (12.0-15.0); WHITE BLOOD COUNT 5.6 x10^3/uL (4.8-10.8)
[2024-01-10 06:01] LABS: INR 1.9 (0.8-1.2); PT - PROTHROMBIN TIME 20.7 secs (9.9-12.6)
[2024-01-10 06:16] LABS: CALCIUM 8.6 mg/dL (8.5-10.3); POTASSIUM 4.7 mmol/L (3.5-4.5)
[2024-01-10] MEDS: SODIUM ZIRCONIUM CYCLOSILICATE 5 GM PACKET PO ONE (09:03)
[2024-01-10] MEDS: ACETAMINOPHEN 325 MG TABLET PO PRN (09:06)
--- NOTE | 2024-01-10 12:23 | PROVIDER PROGRESS NOTE ---
Assessment/Plan - Problem List (1) PAD (peripheral artery disease) Assessment/Plan: (1) PAD (peripheral artery disease) Conclusion/Plan: --Peripheral vascular disease diagnosed with previous ultrasound. CT with runoff does not show any critical stenosis. She does have a vascular surgery appointment on January 27 in [place]. --Wound culture showing Klebsiella. On Ceftriaxone monotherapy. --Continue warfarin. INR goal should be 2-3. She was previously on Eliquis but could not afford it. --Does not appear to be on an antiplatelet or statin. Will start on aspirin 81 mg and Atorvastatin 40 mg. --Prior history of smoking but no longer uses tobacco. (2) Congestive heart failure Conclusion/Plan: --Recent TTE showing reduced LVEF under 35%. --Continue home Bumex, metoprolol, spironolactone. If blood pressures remain elevated I will start her on an ARB. --Not in an acute exacerbation. (3) Diabetes mellitus Conclusion/Plan: --Her PCP has started on glipizide. --Started on sliding scale insulin. Qualifiers: Diabetes mellitus type: type 2 Diabetes mellitus longterm insulin use: without exterminator helper use Diabetes mellitus complication status: with skin complications (4) Hypothyroid Conclusion/Plan: --Continue home levothyroxine. (5) Atrial fibrillation Conclusion/Plan: --Continue amiodarone and metoprolol. She is on warfarin for stroke prevention. Patient does have a rating specialist. --Increased metoprolol to 100 mg daily due to elevated HR. Dispo: Anticipate discharge tomorrow once culture finalizes. She has follow up with vascular and a referral to wound care. (3) Diabetes mellitus Qualifiers: Diabetes mellitus type: type 2 Diabetes mellitus longterm insulin use: without exterminator helper use Diabetes mellitus complication status: with skin complications - Current Meds Current Meds: Current Medications Generic Name Dose Route Start Last Admin Trade Name Freq PRN Reason Stop Dose Admin Acetaminophen 650 mg 01/08/24 11:20 01/10/24 09:06 Acetaminophen 325 Mg Tablet PO 650 mg Q4HR PRN Administration Pain 1 to 4, or Fever Hydrocodone Bitart/Acetaminophen 1 tab 01/08/24 11:20 01/09/24 20:51 Hydrocod/Acetam 5/325 Mg Tablet PO 1 tab Q4HR PRN Administration Pain 5 to 7 Amiodarone HCl 200 mg 01/09/24 09:00 01/10/24 09:03 Amiodarone 200 Mg Tablet PO 200 mg DAILY ARPAN Administration Aspirin 81 mg 01/08/24 14:00 01/10/24 09:04 Aspirin Ec 81 Mg Tablet PO 81 mg DAILYWM ARPAN Administration Atorvastatin Calcium 40 mg 01/08/24 21:00 01/09/24 20:45 Atorvastatin 40 Mg Tablet PO 40 mg QPM ARPAN Administration Bacitracin 1 packet 01/08/24 18:14 01/09/24 20:50 Bacitracin Zinc Oint 1 Packet TOP 1 packet PRN PRN Administration Skin Care Bumetanide 0.5 mg 01/09/24 09:00 01/10/24 09:04 Bumetanide 1 Mg Tablet PO 0.5 mg DAILY ARPAN Administration Ceftriaxone Sodium 1 gm/ 100 mls @ 200 mls/hr 01/08/24 14:00 01/10/24 09:03 Sodium Chloride IV 200 mls/hr DAILY ARPAN Administration Insulin Human Lispro 1 - 5 unit 01/08/24 17:00 01/10/24 11:57 Insulin Lispro 300 Unit/3 Ml Pen SUBQ 1 unit 0800,1200,1700,2100 ARPAN Administration Protocol Levothyroxine Sodium 50 mcg 01/09/24 07:00 01/10/24 06:06 Levothyroxine 25 Mcg Tablet PO 50 mcg QDAC ARPAN Administration Metoprolol Succinate 50 mg 01/09/24 09:00 01/10/24 09:03 Metoprolol Succinate 50 Mg Tablet PO 50 mg DAILY ARPAN Administration Sodium Chloride 10 ml 01/08/24 11:20 01/08/24 17:11 Sodium Chloride Flush 0.9% 10 Ml Syringe IVP 10 ml PRN PRN Administration NEEDED PER PROVIDER ORDERS Sodium Chloride 10 ml 01/08/24 17:00 01/10/24 09:04 Sodium Chloride Flush 0.9% 10 Ml Syringe IVP 10 ml 0100,0900,1700 ARPAN Administration Spironolactone 25 mg 01/09/24 09:00 01/10/24 09:04 Spironolactone 25 Mg Tablet PO 25 mg DAILY ARPAN Administration Warfarin Sodium 2.5 mg 01/08/24 21:00 01/09/24 20:45 Warfarin 2.5 Mg Tablet PO 2.5 mg QPM ARPAN Administration - Lab Result Fish Bone Diagrams: 04/08/24 05:39 01/10/24 05:39 - Additional Planning My Orders: My Active Orders 01/11/24 05:00 BMP - BASIC METABOLIC PANEL [CHEM] DAILYLAB CBC [CBC - COMP BLD CT W/AUTO DIFF] [HEME] DAILYLAB PT WITH INR [COAG] DAILYLAB 01/12/24 05:00 BMP - BASIC METABOLIC PANEL [CHEM] DAILYLAB CBC [CBC - COMP BLD CT W/AUTO DIFF] [HEME] DAILYLAB PT WITH INR [COAG] DAILYLAB 01/13/24 05:00 BMP - BASIC METABOLIC PANEL [CHEM] DAILYLAB CBC [CBC - COMP BLD CT W/AUTO DIFF] [HEME] DAILYLAB PT WITH INR [COAG] DAILYLAB 01/14/24 05:00 PT WITH INR [COAG] DAILYLAB 01/15/24 05:00 PT WITH INR [COAG] DAILYLAB Subjective - Subjective Patient Reports: Feeling Better, Resting Comfortably, No Complaints Objective Vital Signs: Vital Signs - 24 hr 01/09/24 01/10/24 01/10/24 15:43 00:01 07:45 Temperature 36.6 C 37.0 C 36.7 C Heart Rate [ 89 113 H 116 H Brachial] Heart Rate [ Sitting] Heart Rate [ Standing] Heart Rate [ Supine] Respiratory 15 20 18 Rate Blood Pressure 125/74 101/56 L 113/64 [Right Brachial artery] Blood Pressure [Sitting] Blood Pressure [Standing] Blood Pressure [Supine] O2 Saturation 96 92 94 01/10/24 08:11 Temperature Heart Rate [ Brachial] Heart Rate [ 118 H Sitting] Heart Rate [ 118 H Standing] Heart Rate [ 113 H Supine] Respiratory Rate Blood Pressure [Right Brachial artery] Blood Pressure 124/71 [Sitting] Blood Pressure 159/68 H [Standing] Blood Pressure 115/64 [Supine] O2 Saturation Oxygen O2 Source Room air I&O (Last 24 Hrs): Intake and Output Totals x24h 01/08/24 01/09/24 01/10/24 23:59 23:59 23:59 Intake Total 1010 1730 490 Output Total 1000 300 Balance 1010 730 190 General: Alert, Oriented x3, Cooperative, No acute distress Cardiovascular: Regular rate, Normal S1, Normal S2, No murmurs Respiratory: Chest non-tender, No respiratory distress, Breath sounds nml Abdomen: Normal bowel sounds, Soft, No tenderness, No hepatospenomegaly, No masses - Results Results: Laboratory Results WBC 5.6 x10^3/uL (4.8-10.8) 01/10/24 05:39 RBC 4.24 10^6/uL (4.20-5.40) 01/10/24 05:39 Hgb 11.6 g/dL (12.0-16.0) L 01/10/24 05:39 Hct 35.3 % (37.0-47.0) L 01/10/24 05:39 MCV 83.3 fL (81.0-99.0) 01/10/24 05:39 MCH 27.4 pg (27.0-31.0) 01/10/24 05:39 MCHC 32.9 g/dL (32.0-36.0) 01/10/24 05:39 RDW 16.8 % (12.0-15.0) H 01/10/24 05:39 Plt Count 205 10^3/uL (130-450) 01/10/24 05:39 MPV 11.4 fL (7.9-10.8) H 01/10/24 05:39 Neut # (Auto) 3.2 10^3/uL (1.5-6.6) 01/10/24 05:39 Lymph # (Auto) 1.2 10^3/uL (1.5-3.5) L 01/10/24 05:39 [place] # (Auto) 0.7 10^3/uL (0.0-1.0) 01/10/24 05:39 Eos # (Auto) 0.5 10^3/uL (0.0-0.7) 01/10/24 05:39 Baso # (Auto) 0.0 10^3/uL (0.0-0.1) 01/10/24 05:39 Absolute Nucleated RBC 0.00 x10^3/uL 01/10/24 05:39 Nucleated RBC % 0.0 /100WBC 01/10/24 05:39 PT 20.7 secs (9.9-12.6) H 01/10/24 05:39 INR 1.9 (0.8-1.2) H 01/10/24 05:39 Sodium 135 mmol/L (135-145) 01/10/24 05:39 Potassium 4.7 mmol/L (3.5-4.5) H 01/10/24 05:39 Chloride 102 mmol/L (101-111) 01/10/24 05:39 Carbon Dioxide 29 mmol/L (21-32) 01/10/24 05:39 Anion Gap 4.0 (6-13) L 01/10/24 05:39 BUN 20 mg/dL (6-20) 01/10/24 05:39 Creatinine 1.0 mg/dL (0.6-1.3) 01/10/24 05:39 Estimated GFR (MDRD) 54 (>89) L 01/10/24 05:39 Glucose 122 mg/dL (74-104) H 01/10/24 05:39 POC Whole Bld Glucose 165 mg/dL (70 - 100) H 01/10/24 11:30 Estimat Average Glucose 180 mg/dL (70-100) H 01/09/24 05:09 Hemoglobin A1c % 7.9 % (4.27-6.07) H 01/09/24 05:09 Lactic Acid 2.0 mmol/L (0.5-2.2) 01/08/24 08:58 Calcium 8.6 mg/dL (8.5-10.3) 01/10/24 05:39 Total Bilirubin 1.0 mg/dL (0.2-1.0) 01/09/24 05:09 Direct Bilirubin 0.30 mg/dL (0.03-0.18) H 01/09/24 05:09 AST 18 IU/L (10-42) 01/09/24 05:09 ALT 18 IU/L (10-60) 01/09/24 05:09 Alkaline Phosphatase 58 IU/L (42-121) 01/09/24 05:09 B-Natriuretic Peptide 371 pg/mL (5-100) H 01/08/24 09:21 Total Protein 5.5 g/dL (6.4-8.9) L 01/09/24 05:09 Albumin 3.0 g/dL (3.2-5.5) L 01/09/24 05:09 Globulin 2.5 g/dL (2.1-4.2) 01/09/24 05:09 Albumin/Globulin Ratio 1.3 (1.0-2.2) 01/08/24 08:58 Triglycerides 90 mg/dL (48-352) 01/09/24 05:09 Cholesterol 90 mg/dL (-200) 01/09/24 05:09 LDL Cholesterol, Calc 44 mg/dL (-129) 01/09/24 05:09 VLDL Cholesterol 18 mg/dL 01/09/24 05:09 HDL Cholesterol 28 mg/dL (60-) L 01/09/24 05:09 LDL/HDL Ratio 1.6 (<4.4) 01/09/24 05:09 Cholesterol/HDL Ratio 3.2 (<4.4) 01/09/24 05:09 Lipase 15 U/L (11-82) 01/08/24 08:58 Urine Color YELLOW 01/08/24 10:06 Urine Clarity CLEAR (CLEAR) 01/08/24 10:06 Urine pH 6.0 PH (5.0-7.5) 01/08/24 10:06 Ur Specific [place] <=1.005 (1.002-1.030) 01/08/24 10:06 Urine Protein NEGATIVE mg/dL (NEGATIVE) 01/08/24 10:06 Urine Glucose (UA) NEGATIVE mg/dL (NEGATIVE) 01/08/24 10:06 Urine Ketones NEGATIVE mg/dL (NEGATIVE) 01/08/24 10:06 Urine Occult Blood NEGATIVE (NEGATIVE) 01/08/24 10:06 Urine Nitrite NEGATIVE (NEGATIVE) 01/08/24 10:06 Urine Bilirubin NEGATIVE (NEGATIVE) 01/08/24 10:06 Urine Urobilinogen 0.2 (NORMAL) E.U./dL (NORMAL) 01/08/24 10:06 Ur Leukocyte Esterase NEGATIVE (NEGATIVE) 01/08/24 10:06 Ur Microscopic Review NOT INDICATED 01/08/24 10:06 Urine Culture Comments NOT INDICATED 01/08/24 10:06
[2024-01-10] MEDS: WARFARIN 5 MG TABLET PO SCH (21:41)
[2024-01-11 05:40] LABS: INR 1.9 (0.8-1.2); PT - PROTHROMBIN TIME 20.2 secs (9.9-12.6)
[2024-01-11 05:45] LABS: BASOPHILS % (AUTO) 0.3 %; EOSINOPHILS # (AUTO) 0.6 10^3/uL (0.0-0.7); HCT - HEMATOCRIT 36.4 % (37.0-47.0); HGB - HEMOGLOBIN 11.7 g/dL (12.0-16.0); LYMPHOCYTES # (AUTO) 0.9 10^3/uL (1.5-3.5); LYMPHOCYTES % (AUTO) 14.3 %; MEAN CORPUSCULAR HEMOGLOBIN 26.8 pg (27.0-31.0); MEAN CORPUSCULAR HGB CONC 32.1 g/dL (32.0-36.0); MEAN CORPUSCULAR VOLUME 83.3 fL (81.0-99.0); MONOCYTES # (AUTO) 0.7 10^3/uL (0.0-1.0); NEUTROPHILS # (AUTO) 3.8 10^3/uL (1.5-6.6); NEUTROPHILS % (AUTO) 63.1 %; PLT - PLATELET COUNT 216 10^3/uL (130-450); RED BLOOD COUNT 4.37 10^6/uL (4.20-5.40); RED CELL DISTRIBUTION WIDTH 17.1 % (12.0-15.0); WHITE BLOOD COUNT 6.1 x10^3/uL (4.8-10.8)
[2024-01-11 05:49] LABS: CALCIUM 8.3 mg/dL (8.5-10.3); POTASSIUM 4.7 mmol/L (3.5-4.5)
[2024-01-11] MEDS: METOPROLOL SUCCINATE 50 MG TABLET PO SCH (08:14)
[2024-01-11] MEDS ORDERED: METOPROLOL SUCCINATE 50 MG TABLET PO SCH (09:00)
[2024-01-11] MEDS: ZINC SULFATE 220 MG CAPSULE PO SCH (13:43)
[2024-01-11] MEDS: MULTIVITAMIN W/MINERALS TABLET PO SCH (13:43)
[2024-01-11] MEDS: CIPROFLOXACIN 250 MG TABLET PO SCH (13:43)
--- NOTE | 2024-01-11 18:28 | PROVIDER PROGRESS NOTE ---
Subjective - Prog Note Date Prog Note Date: 01/11/24 Prog Note Time: 18:26 - Subjective Pt reports feeling: Improved Subjective: In talking to her about going home, she walks with a walker. But will need a lot of support at home. I will need to order home health. She has no ability to leave her house on her own. Relies on mass transit and has to call the day in advance to do that. She is not able to bend over. She would not be able to do daily dressing changes on her legs. Current Medications - Current Medications Current Medications: Active Medications Acetaminophen (Acetaminophen 325 Mg Tablet) 650 mg PO Q4HR PRN PRN Reason: Pain 1 to 4, or Fever Last Admin: 01/11/24 12:49 Dose: 650 mg Hydrocodone Bitart/Acetaminophen (Hydrocod/Acetam 5/325 Mg Tablet) 1 tab PO Q4HR PRN PRN Reason: Pain 5 to 7 Last Admin: 01/09/24 20:51 Dose: 1 tab Amiodarone HCl (Amiodarone 200 Mg Tablet) 200 mg PO DAILY [facility] Last Admin: 01/11/24 08:14 Dose: 200 mg Aspirin (Aspirin Ec 81 Mg Tablet) 81 mg PO DAILYWM [facility] Last Admin: 01/11/24 08:14 Dose: 81 mg Atorvastatin Calcium (Atorvastatin 40 Mg Tablet) 40 mg PO QPM [facility] Last Admin: 01/10/24 21:41 Dose: 40 mg Bacitracin (Bacitracin Zinc Oint 1 Packet) 1 packet TOP PRN PRN PRN Reason: Skin Care Last Admin: 01/09/24 20:50 Dose: 1 packet Bumetanide (Bumetanide 1 Mg Tablet) 0.5 mg PO DAILY [facility] Last Admin: 01/11/24 08:14 Dose: 0.5 mg Ciprofloxacin (Ciprofloxacin 250 Mg Tablet) 500 mg PO BID [facility] Last Admin: 01/11/24 13:43 Dose: 500 mg Insulin Human Lispro (Insulin Lispro 300 Unit/3 Ml Pen) 1 - 5 unit SUBQ 0800,1200,1700,2100 [facility]; Protocol Last Admin: 01/11/24 17:42 Dose: Not Given Levothyroxine Sodium (Levothyroxine 25 Mcg Tablet) 50 mcg PO QDAC [facility] Last Admin: 01/11/24 06:28 Dose: 50 mcg Metoprolol Succinate (Metoprolol Succinate 50 Mg Tablet) 50 mg PO DAILY [facility] Last Admin: 01/11/24 08:14 Dose: 50 mg Multivitamins/Minerals (Multivitamin W/Minerals Tablet) 1 tab PO DAILYWM [facility] Last Admin: 01/11/24 13:43 Dose: 1 tab Ondansetron HCl (Ondansetron Odt 4 Mg Tablet) 4 mg TL Q6HR PRN PRN Reason: Nausea / Vomiting Ondansetron HCl (Ondansetron 4 Mg/2 Ml Vial) 4 mg IVP Q6HR PRN PRN Reason: Nausea / Vomiting Sodium Chloride (Sodium Chloride Flush 0.9% 10 Ml Syringe) 10 ml IVP PRN PRN PRN Reason: NEEDED PER PROVIDER ORDERS Last Admin: 01/08/24 17:11 Dose: 10 ml Sodium Chloride (Sodium Chloride Flush 0.9% 10 Ml Syringe) 10 ml IVP 0100,0900,1700 [facility] Last Admin: 01/11/24 08:15 Dose: 10 ml Spironolactone (Spironolactone 25 Mg Tablet) 25 mg PO DAILY [facility] Last Admin: 01/11/24 08:14 Dose: 25 mg Warfarin Sodium (Warfarin 2.5 Mg Tablet) 2.5 mg PO SuTuWeFrSa@2100 [facility] Warfarin Sodium (Warfarin 5 Mg Tablet) 5 mg PO MoTh@2100 [facility] Last Admin: 01/10/24 21:41 Dose: 5 mg Zinc Sulfate (Zinc Sulfate 220 Mg Capsule) 220 mg PO DAILY [facility] Last Admin: 01/11/24 13:43 Dose: 220 mg Amiodarone [Pacerone] 200 mg PO DAILY 01/05/24 Bumetanide 0.5 mg PO DAILY 01/05/24 Levothyroxine Sodium 50 mcg PO DAILY 01/05/24 Lisinopril [Zestril] 5 mg PO DAILY 01/05/24 Spironolactone [Aldactone] 12.5 mg PO DAILY 01/05/24 Warfarin [Coumadin] 2.5 mg PO SUTUWEFRSA 01/10/24 Warfarin [Coumadin] 5 mg PO MOTH 01/10/24 Objective - Vital Signs/Intake & Output Reviewed Vital Signs: Yes Vital Signs: Vital Signs x48h Temp Pulse Resp BP Pulse Ox 01/11/24 15:46 36.5 C 101 H 16 105/62 96 Intake & Output: Intake & Output 01/08/24 01/09/24 01/10/24 01/11/24 23:59 23:59 23:59 23:59 Intake Total 1010 1730 1320 1570 Output Total 1000 300 Balance 3648 401 1484 1570 - Objective General Appearance: positive: No acute distress, Alert, Other (5 feet 6 inches female who is 117.5 kg.) Eyes Bilateral: positive: PERRL, EOMI ENT: positive: No signs of dehydration Neck: positive: Thyroid nml Respiratory: positive: No respiratory distress. negative: Wheezes, Rales, Rhonchi Cardiovascular: positive: Regular rate & rhythm Abdomen: positive: Non-tender, No organomegaly, Nml bowel sounds, No distention Skin: positive: Warm, Dry, Other (The ambrose wounds and ulcers are wrapped in bandages. The visualized skin is with hyperpigmentation, but no edema, and extensive peeling of the skin.) Extremities: positive: Full ROM, No pedal edema Neurologic/Psychiatric: positive: Oriented x3, CN's nml (2-12), Motor nml - Lab Results Fish Bones: 01/11/24 05:27 01/11/24 05:27 Other Labs: Lab Results x24hrs 01/11/24 01/11/24 01/11/24 Range/Units 16:34 11:46 07:42 WBC (4.8-10.8) x10^3/uL RBC (4.20-5.40) 10^6/uL Hgb (12.0-16.0) g/dL Hct (37.0-47.0) % MCV (81.0-99.0) fL MCH (27.0-31.0) pg MCHC (32.0-36.0) g/dL RDW (12.0-15.0) % Plt Count (130-450) 10^3/uL MPV (7.9-10.8) fL Neut # (Auto) (1.5-6.6) 10^3/uL Lymph # (Auto) (1.5-3.5) 10^3/uL [place] # (Auto) (0.0-1.0) 10^3/uL Eos # (Auto) (0.0-0.7) 10^3/uL Baso # (Auto) (0.0-0.1) 10^3/uL Absolute Nucleated RBC x10^3/uL Nucleated RBC % /100WBC PT (9.9-12.6) secs INR (0.8-1.2) Sodium (135-145) mmol/L Potassium (3.5-4.5) mmol/L Chloride (101-111) mmol/L Carbon Dioxide (21-32) mmol/L Anion Gap (6-13) BUN (6-20) mg/dL Creatinine (0.6-1.3) mg/dL Estimated GFR (MDRD) (>89) Glucose (74-104) mg/dL POC Whole Bld Glucose 128 H 173 H 110 H (70 - 100) mg/dL Calcium (8.5-10.3) mg/dL 01/11/24 01/11/24 01/11/24 Range/Units 05:27 05:27 05:27 WBC 6.1 (4.8-10.8) x10^3/uL RBC 4.37 (4.20-5.40) 10^6/uL Hgb 11.7 L (12.0-16.0) g/dL Hct 36.4 L (37.0-47.0) % MCV 83.3 (81.0-99.0) fL MCH 26.8 L (27.0-31.0) pg MCHC 32.1 (32.0-36.0) g/dL RDW 17.1 H (12.0-15.0) % Plt Count 216 (130-450) 10^3/uL MPV 11.0 H (7.9-10.8) fL Neut # (Auto) 3.8 (1.5-6.6) 10^3/uL Lymph # (Auto) 0.9 L (1.5-3.5) 10^3/uL [place] # (Auto) 0.7 (0.0-1.0) 10^3/uL Eos # (Auto) 0.6 (0.0-0.7) 10^3/uL Baso # (Auto) 0.0 (0.0-0.1) 10^3/uL Absolute Nucleated RBC 0.00 x10^3/uL Nucleated RBC % 0.0 /100WBC PT 20.2 H (9.9-12.6) secs INR 1.9 H (0.8-1.2) Sodium 137 (135-145) mmol/L Potassium 4.7 H (3.5-4.5) mmol/L Chloride 101 (101-111) mmol/L Carbon Dioxide 31 (21-32) mmol/L Anion Gap 5.0 L (6-13) BUN 18 (6-20) mg/dL Creatinine 1.0 (0.6-1.3) mg/dL Estimated GFR (MDRD) 54 L (>89) Glucose 118 H (74-104) mg/dL POC Whole Bld Glucose (70 - 100) mg/dL Calcium 8.3 L (8.5-10.3) mg/dL 01/10/24 Range/Units 19:58 WBC (4.8-10.8) x10^3/uL RBC (4.20-5.40) 10^6/uL Hgb (12.0-16.0) g/dL Hct (37.0-47.0) % MCV (81.0-99.0) fL MCH (27.0-31.0) pg MCHC (32.0-36.0) g/dL RDW (12.0-15.0) % Plt Count (130-450) 10^3/uL MPV (7.9-10.8) fL Neut # (Auto) (1.5-6.6) 10^3/uL Lymph # (Auto) (1.5-3.5) 10^3/uL [place] # (Auto) (0.0-1.0) 10^3/uL Eos # (Auto) (0.0-0.7) 10^3/uL Baso # (Auto) (0.0-0.1) 10^3/uL Absolute Nucleated RBC x10^3/uL Nucleated RBC % /100WBC PT (9.9-12.6) secs INR (0.8-1.2) Sodium (135-145) mmol/L Potassium (3.5-4.5) mmol/L Chloride (101-111) mmol/L Carbon Dioxide (21-32) mmol/L Anion Gap (6-13) BUN (6-20) mg/dL Creatinine (0.6-1.3) mg/dL Estimated GFR (MDRD) (>89) Glucose (74-104) mg/dL POC Whole Bld Glucose 124 H (70 - 100) mg/dL Calcium (8.5-10.3) mg/dL ABX Reporting Has patient been on IV antibiotics over the past 48 hours?: Yes Assessment/Plan - Problem List (1) Cellulitis of left lower extremity Impression: --Wound culture showing Klebsiella, Staph and Enterococcus. Cellulitis was the reason she was admitted. But the hospitalist felt that the problem was more ischemic ulcer with subsequent redness of the skin. What I am seeing on today's exam is edema that is resolved. You can see where all the skin has shrunken down, there is no redness or heat, and there is extensive peeling of the lower extremity skin. The patient can be discontinued from IV antibiotics. And I will switch her to oral. In looking at the sensitivities of all of her bugs, I will switch her over to Cipro from rocephin monotherapy. Plan for discharge tomorrow morning if there is no fever or white cell count or recurrent redness.. (2) PAD (peripheral artery disease) Impression: --Peripheral vascular disease diagnosed with previous ultrasound. CT with runoff does not show any critical stenosis. She does have a vascular surgery appointment on January 27 in [place]. --Continue warfarin. INR goal should be 2-3. She was previously on Eliquis but could not afford it. --Does not appear to be on an antiplatelet or statin. She has been started on aspirin and atorvastatin. --Prior history of smoking but no longer uses tobacco. Although I am considering discharge tomorrow morning, the patient has difficulty in reaching her legs. She really cannot reach down to change her dressings. As such I am asking physical therapy and social work and case management to let me know if this patient is a candidate for swing bed status for wound management. (2) Congestive heart failure Conclusion/Plan: --Recent TTE showing reduced LVEF under 35%. --Continue home Bumex, metoprolol, spironolactone. If blood pressures remain elevated I will start her on an ARB. --Not in an acute exacerbation. (3) Diabetes mellitus Conclusion/Plan: --Her PCP has started on glipizide. --Started on sliding scale insulin. Glucose yesterday was 101, 124. She is eating 75 to 100% of her food. And glucose today is 110, 173, 128. I will not be changing her diabetic management Qualifiers: Diabetes mellitus type: type 2 Diabetes mellitus fpc insulin use: without buttermaker helper use Diabetes mellitus complication status: with skin complications (4) Hypothyroid Conclusion/Plan: --Continue home levothyroxine. (5) Atrial fibrillation Conclusion/Plan: --Continue amiodarone and metoprolol. She is on warfarin for stroke prevention. Patient does have a medical transport specialist. --Increased metoprolol to 100 mg daily due to elevated HR. Dispo: Anticipate discharge tomorrow once culture finalizes. She has follow up with vascular and a referral to wound care.
[2024-01-11] MEDS: WARFARIN 2.5 MG TABLET PO SCH (20:47)
[2024-01-12 05:34] LABS: BASOPHILS % (AUTO) 0.2 %; EOSINOPHILS # (AUTO) 0.8 10^3/uL (0.0-0.7); EOSINOPHILS % (AUTO) 12.4 %; HCT - HEMATOCRIT 38.4 % (37.0-47.0); HGB - HEMOGLOBIN 12.2 g/dL (12.0-16.0); LYMPHOCYTES % (AUTO) 14.9 %; MEAN CORPUSCULAR HEMOGLOBIN 26.5 pg (27.0-31.0); MEAN CORPUSCULAR HGB CONC 31.8 g/dL (32.0-36.0); MEAN CORPUSCULAR VOLUME 83.5 fL (81.0-99.0); MONOCYTES # (AUTO) 0.7 10^3/uL (0.0-1.0); MONOCYTES % (AUTO) 10.3 %; NEUTROPHILS # (AUTO) 4.1 10^3/uL (1.5-6.6); PLT - PLATELET COUNT 220 10^3/uL (130-450); RED CELL DISTRIBUTION WIDTH 17.3 % (12.0-15.0); WHITE BLOOD COUNT 6.5 x10^3/uL (4.8-10.8)
[2024-01-12 05:39] LABS: PT - PROTHROMBIN TIME 20.8 secs (9.9-12.6)
[2024-01-12 05:50] LABS: CALCIUM 8.5 mg/dL (8.5-10.3); POTASSIUM 4.2 mmol/L (3.5-4.5)
[2024-01-12 08:05] VITALS: BP 115/65; O2SAT 96
--- NOTE | 2024-01-12 13:41 | Discharge Plan ---
Discharge Plan Problem Reviewed?: Yes Disposition: Home, Self Care Condition: Stable Prescriptions: Bacitracin Zinc Oint [Bacitracin] 1 packet TOP PRN PRN #20 packet PRN Reason: Skin Care Ciprofloxacin [Cipro] 500 mg PO BID 5 Days #20 tab Zinc Sulfate 220 mg PO DAILY #30 cap Diet: Regular (gluten free) Activity Restrictions: Activity as Tolerated Shower Restrictions: No Driving Restrictions: Yes (no driving) Weight Bearing: Full Weight Health Concerns: You have a previous history of hardening of the arteries of your legs which recall peripheral vascular disease. That has left you with chronic ulcers of the legs from lack of circulation to the skin and muscle. On top of that you have type 2 diabetes, atrial fibrillation, and heart failure with hyperlipidemia, hypertension, hypothyroidism. You came to our emergency room because you felt like the ulcers were getting bigger and deeper. You had already been evaluated in December of this year where you were admitted for the same problem. We identified you as having a severely restricted blood flow to the legs. You are due to see a vascular surgeon on January 27. Your ulcers were weeping, red looking. The skin was swollen. You have been started on antibiotics. The bacteria growing in your ulcers have been Klebsiella, Staphylococcus, and Enterococcus. The antibiotics we have given you cover those bacteria. You are now stable to go home. You still have the same chronic problems. Unfortunately this hospital cannot take care of vascular disease. The only thing we were able to do with help take care of the wounds and give you antibiotics. We are unable to do anything definitive about the actual blood flow problem to your legs. Plan of Treatment: Please see your primary care provider in the next 1 to 2 weeks. We have made referral for you to be seen in the wound clinic here at the hospital but the first available appointment is made. We have also offered you home health follow-up with a home health nurse to help you with your wounds but you have declined that offer at this time. Please clean your wounds on a daily basis with soap and water. Then dry them carefully with a dry clean towel. You may also use a balance and hairspring assembler set at the lowest none hot setting to dry the skin. Then use bacitracin ointment to cover the wound, and then Mepilex dressing on top of that. Do that every day. Please keep your vascular appointment on January 27. Care Goals: Hopefully you will be able to have an intervention done to your legs to improve your blood supply. If not, you may be looking at possible surgery down the road. Assessment: Patient is alert, oriented to person place, time and situation. Is self decisional. Follow-Up Care: [facility] - Wound/Ostomy No Smoking: If you smoke, Please STOP! Call for help. Follow-up with: Mally Chauhan MD [Primary Care Provider] -
--- NOTE | 2024-01-12 15:01 | DISCHARGE SUMMARY ---
Discharge Summary Admit Date: 01/08/24 Discharge Date: 01/12/24 Discharging Provider: Mariel Rice MD Primary Care Provider: Mally Chauhan Code Status: Attempt Resuscitation Condition at Discharge: Stable Discharge Disposition: 01 Home, Self Care - DIAGNOSES Discharge Diagnoses with Status of Each Condition: 1. Bilateral lower leg cellulitis 2. Peripheral arterial disease 3. Ischemic ulcer of lower extremities 4. Chronic congestive heart failure 5. Type 2 diabetes mellitus, controlled, with complications 6. Hypothyroidism 7. Chronic atrial fibrillation - HPI History of Present Illness: Patient is a 73-year-old female the past medical history of atrial fibrillation, heart failure with reduced ejection fraction, peripheral vascular disease with chronic ischemic ulcers, type 2 diabetes, hyperlipidemia, hypertension, hypothyroidism who presented to the ED due to progressive worsening of her chronic ulceration. Patient was admitted earlier in December where she underwent vascular studies showing hemodynamically significant stenosis in the distal right superficial femoral artery and left mid distal superficial femoral artery. During that hospitalization she was recommended to see vascular surgeon who she will be seeing on January 27. Patient reports that her ulcers have worsened since this visit. She is able to ambulate but reports that it is painful. She was instructed to go to the ED if her ulceration worsened by her PCP. During my evaluation her ulcers appear to be weeping. She denies any chest pain or shortness of breath. No fevers or chills. She does have pain in her legs but it is worse upon walking. - Past Medical History Cardiovascular: reports: Congestive heart failure, Atrial fibrillation Respiratory: reports: None Neuro: reports: None Endocrine/Autoimmune: reports: Type 2 diabetes GI: reports: None WORKPLACE REHABILITATION OFFICER: reports: None : reports: None HEENT: reports: None Psych: reports: None Musculoskeletal: reports: Osteoporosis Derm: reports: None MRSA Hx?: No - Past Surgical History Ortho: reports: Hip replacement /WORKPLACE REHABILITATION OFFICER: reports: Hysterectomy - HOSPITAL COURSE Hospital Course: Initially the legs were described as open weeping ulcers. Some redness. Edema. Patient was treated with empiric antibiotics to cover multiple organisms. The edema of her lower extremities gradually resolved and left her with densely peeling skin. The wounds were initially treated with Telfa and Kerlix. But the bandages kept on falling off. By the time of discharge she is having her wounds clean daily, topped off with bacitracin, and then Mepilex bandages. The patient is to remain with that wound care regimen at home. We initially attempted placement for wound care. However her insurance company felt that they would not be able to authorize this for 2 to 3 days. We thought about swing bed, but again no authorization for 2 to 3 days. The patient herself declined having a home health RN and with wound management. She insisted on following up with the wound clinic here at the hospital. Unfortunately they do not have openings until February. In the meantime she is to continue her daily wound care at home. She will be getting to her visits with alicia. Cultures of her leg ulcers showed her to have Klebsiella, Staphylococcus, Enterococcus. The Klebsiella was resistant to ampicillin. Staphylococcus was resistant to penicillin. And the Enterococcus was resistant to gentamicin. After discussion with pharmacy, the patient was placed on a quinolone. She is to quinolone for 5 more days. She does not have a fever. White cell count has been normal during her stay. Unfortunately this patient is at risk for further deterioration of skin and musc le due to vascular disease. If she returns to our emergency room I would recommend that the emergency room providers transfer her to a different facility that has vascular care. We would not be able to provide that care here. If she does stay here, the next surgical step would be possible amputation. She is discharged in stable condition with a guarded prognosis with regards to her vascular disease. Temperature is 36.5. Heart rate 101. Blood pressure 115/65. Respirations 18. 96% on room air. She is 5 foot 6 inches tall, 117.5 kg. It well-nourished well-developed elderly female who looks her stated age. Neck is supple. Lungs are clear. No respiratory distress. Regular rate and rhythm. And obese protuberant abdomen that is soft, nontender with normal bowel sounds. She has multiple ischemic ulcers of the distal extremities on calf, shins, ankles. At this time there is no redness or heat of the surrounding tissues. Bruising of the ulcers has subsided substantially since admission. Greater than 30 minutes was spent coordinating discharge This document was made in part using voice recognition software. While efforts are made to proofread this document, sound alike and grammatical errors may occur. - ALLERGIES Allergies/Adverse Reactions: Allergies Allergy/AdvReac Type Severity Reaction Status Date / Time banana Allergy Mild Rash Verified 04/06/24 08:31 furosemide [From Lasix] Allergy Rash Verified 01/08/24 08:31 gluten Allergy Rash Verified 01/08/24 08:31 pineapple Allergy Rash Verified 01/08/24 08:31 Sulfa (Sulfonamide Allergy Rash Verified 01/08/24 08:31 Antibiotics) - MEDICATIONS Home Medications: Ambulatory Orders Medication Instructions Recorded Confirmed Metoprolol Succinate [Toprol Xl] 50 mg PO DAILY 30 Days #30 tab 12/10/2303/27 Amiodarone [Pacerone] 200 mg PO DAILY 01/05/24 01/08/24 Bumetanide 0.5 mg PO DAILY 01/05/24 01/08/24 Levothyroxine Sodium 50 mcg PO DAILY 01/05/24 01/08/24 Lisinopril [Zestril] 5 mg PO DAILY 01/05/24 01/08/24 Spironolactone [Aldactone] 12.5 mg PO DAILY 01/05/24 01/08/24 Warfarin [Coumadin] 2.5 mg PO SUTUWEFRSA 01/10/24 01/10/24 Warfarin [Coumadin] 5 mg PO MOTH 01/10/24 01/10/24 Acetaminophen [Tylenol] 650 mg PO Q4HR PRN tab 01/12/24 Aspirin EC [Ecotrin] 81 mg PO DAILYWM tab 01/12/24 Atorvastatin [Lipitor] 40 mg PO QPM tab 01/12/24 Bacitracin Zinc Oint [Bacitracin] 1 packet TOP PRN PRN #20 packet 01/12/24 Ciprofloxacin [Cipro] 500 mg PO BID 5 Days #20 tab 01/12/24 Multivitamin W/Minerals [Theragran 1 tab PO DAILYWM tab 01/12/24 M] Zinc Sulfate 220 mg PO DAILY #30 cap 01/12/24 - LABS Result Diagrams: 01/12/24 05:17 01/12/24 05:17
== END 2024-01-12 15:10 | disposition home or self-care (01) | DRG 300 ==
LOC: ED 08:18 → MS2 11:20
PROVIDERS: ADMIT Family Medicine; ATTEND Specialist
DX: E11.51 Type 2 diabetes mellitus with diabetic peripheral angiopathy without gangrene (principal); L03.119 Cellulitis of unspecified part of limb; I50.9 Heart failure, unspecified; E11.9 Type 2 diabetes mellitus without complications; I50.22 Chronic systolic (congestive) heart failure; L97.219 Non-pressure chronic ulcer of right calf with unspecified severity; L97.229 Non-pressure chronic ulcer of left calf with unspecified severity; L97.329 Non-pressure chronic ulcer of left ankle with unspecified severity; L97.319 Non-pressure chronic ulcer of right ankle with unspecified severity; L97.829 Non-pressure chronic ulcer of other part of left lower leg with unspecified severity; L97.819 Non-pressure chronic ulcer of other part of right lower leg with unspecified severity; E78.5 Hyperlipidemia, unspecified; I11.0 Hypertensive heart disease with heart failure; E03.9 Hypothyroidism, unspecified; I70.249 Atherosclerosis of native arteries of left leg with ulceration of unspecified site; I70.239 Atherosclerosis of native arteries of right leg with ulceration of unspecified site; I48.91 Unspecified atrial fibrillation; Z79.01 Long term (current) use of anticoagulants; Z79.890 Hormone replacement therapy; Z79.899 Other long term (current) drug therapy; Z82.49 Family history of ischemic heart disease and other diseases of the circulatory system; Z88.2 Allergy status to sulfonamides; Z88.8 Allergy status to other drugs, medicaments and biological substances; Z90.710 Acquired absence of both cervix and uterus; Z91.018 Allergy to other foods; Z96.649 Presence of unspecified artificial hip joint
CPT/HCPCS: 36415; 71045; 75635; 80048; 80053; 80061; 80076; 81003; 83036; 83605; 83690; 83880; 85025; 85610; 87040; 87070; 87077; 87181; 87205; 97116; 97162; 97165; 97530; 97535; 99285; A9270; J3370; 81001; 83721; 87086

== ENCOUNTER → 2024-02-04 | Outpatient (CLI) | payer MEDICARE | LOC: LAB.S 08:00 | PROVIDERS: ATTEND Specialist | DX: Z79.01 Long term (current) use of anticoagulants (principal); I48.91 Unspecified atrial fibrillation ==

== ENCOUNTER 2024-02-18 08:00 | Outpatient (CLI) | payer MEDICARE | END 2024-02-18 08:01 | disposition home or self-care (01) | LOC: LAB.N 08:00 | PROVIDERS: ATTEND Family Medicine | DX: I48.91 Unspecified atrial fibrillation (principal); Z79.01 Long term (current) use of anticoagulants ==

== ENCOUNTER 2024-03-08 10:27 | Outpatient (CLI) | payer MEDICARE ==
[2024-03-08 12:28] LABS: CALCIUM 9.4 mg/dL (8.5-10.3); CREATININE 1.1 mg/dL (0.6-1.3); POTASSIUM 4.9 mmol/L (3.5-4.5)
== END 2024-03-08 10:28 | disposition home or self-care (01) ==
LOC: LAB.N 10:27
PROVIDERS: ATTEND Internal Medicine Cardiovascular Disease
DX: I48.19 Other persistent atrial fibrillation (principal)
CPT/HCPCS: 36415; 80048

== ENCOUNTER 2024-03-13 08:00 | Outpatient (CLI) | payer MEDICARE | END 2024-03-13 23:59 | disposition home or self-care (01) | LOC: LAB.WCP 08:00 | PROVIDERS: ATTEND Family Medicine | DX: I48.91 Unspecified atrial fibrillation (principal); Z79.01 Long term (current) use of anticoagulants ==

== ENCOUNTER 2024-05-23 12:48 | Outpatient (CLI) | payer MEDICARE ==
[2024-05-23 19:13] LABS: THYROID STIMULATING HORMONE 1.71 uIU/mL (0.34-5.60)
[2024-05-23 19:19] LABS: ALBUMIN 3.5 g/dL (3.2-5.5); BILIRUBIN,TOTAL 0.5 mg/dL (0.2-1.0); CALCIUM 9.2 mg/dL (8.5-10.3); CREATININE 1.2 mg/dL (0.6-1.3); POTASSIUM 4.5 mmol/L (3.5-4.5); TOTAL PROTEIN 6.9 g/dL (6.4-8.9)
[2024-05-23 21:05] LABS: ESTIMATED AVERAGE GLUCOSE 180 mg/dL (70-100); HEMOGLOBIN A1c% 7.9 % (4.27-6.07)
== END 2024-05-23 12:49 | disposition home or self-care (01) ==
LOC: LAB.N 12:48
PROVIDERS: ATTEND Family Medicine
DX: E11.65 Type 2 diabetes mellitus with hyperglycemia (principal); I77.9 Disorder of arteries and arterioles, unspecified; I50.22 Chronic systolic (congestive) heart failure; I48.91 Unspecified atrial fibrillation; Z79.01 Long term (current) use of anticoagulants
CPT/HCPCS: 36415; 80053; 83036; 83880; 84443; 85610

== ENCOUNTER 2024-06-08 10:27 | Outpatient (CLI) | payer MEDICARE ==
--- NOTE | 2024-06-09 07:55 | Mammography Report ---
BILATERAL DIGITAL SCREENING MAMMOGRAM 3D/2D: 06/08/2024 CLINICAL: Baseline exam. Routine screening. No prior exams were available for comparison. There are scattered areas of fibroglandular density in both breasts (category b / 25%-50% glandular t issue). There is an asymmetry in the right breast middle depth superior region seen on the mediolateral obliq ue view only. There is an asymmetry in the left breast posterior depth medial region seen on the craniocaudal view only. No other significant masses or calcifications are seen in either breast. IMPRESSION: INCOMPLETE: NEEDS ADDITIONAL IMAGING EVALUATION The asymmetry in the right breast middle depth superior region seen on the mediolateral oblique view only is indeterminate. Additional views with possible ultrasound are recommended. The asymmetry in the left breast posterior depth medial region seen on the craniocaudal view only is indeterminate. Additional views with possible ultrasound are recommended. Based on the Tyrer Cuzick model (a risk assessment model) the patient's lifetime risk is 5.9% and her 10 year risk is 4.8%. According to the ACR, ACS, and NCCN guidelines, an annual breast MRI exam francisco g with mammogram is recommended if the patient's lifetime risk is 20% or greater. This exam was interpreted at Station ID: [id number]. NOTE: For mammograms, a report in lay terms will be sent to the patient. Approximately 15% of breast malignancies will not be visualized mammographically. In the management of a palpable breast mass, a negative mammogram must not discourage biopsy of a clinically suspicious lesion. Electronically Signed By: Gonzalez Butcher M.D. lc/:06/08/2024 11:14:38 ACR BI-RADS Category 0: Incomplete 3340F PARENCHYMAL PATTERN: (A) - The breast(s) demonstrate(s) scattered fibroglandular densities. BI-RADS CATEGORY: (0) - 0 Mammo and [place] [id number] Immediate follow-up LATERALITY: (B)
== END 2024-06-08 10:28 | disposition home or self-care (01) ==
LOC: DI.N 10:27
DX: Z12.31 Encounter for screening mammogram for malignant neoplasm of breast (principal); R92.323 Mammographic fibroglandular density, bilateral breasts; R92.8 Other abnormal and inconclusive findings on diagnostic imaging of breast